=== PATIENT | female | born 1960 | race Caucasian/White ===

== ENCOUNTER → 2017-06-30 | Outpatient (CLI) | payer BC ==
--- NOTE | 2017-07-09 11:38 | MM ---
Reason for exam: screening (asymptomatic). Last mammogram was performed 2 years and 5 months ago. History: Patient is postmenopausal and is nulliparous. Family history of breast cancer in maternal grandmother at age 53 and breast cancer in mother at age 81. Benign excisional biopsy of the left breast, 2016. Physical Findings: A clinical breast exam by your physician is recommended on an annual basis and results should be correlated with mammographic findings. MG 3D Screening Mammo W/Cad Bilateral CC and MLO view(s) were taken. Prior study comparison: February 12, 2015, mammogram, performed at [facility]. September 19, 2014, mammogram, performed at [facility]. February 16, 2012, bilateral digital screening mammo w/CAD. April 15, 2009, bilateral diagnostic digital mammog. There are scattered fibroglandular densities. Finding: There are typically benign round, regional calcifications in the upper outer quadrant of the left breast. There is no discrete abnormality. ASSESSMENT: Benign, BI-RAD 2 RECOMMENDATION: Routine screening mammogram of both breasts in 1 year.
== END | disposition home or self-care (01) ==
LOC: RADMAMWWP 08:58
PROVIDERS: ATTEND Family Medicine
DX: Z12.31 Encounter for screening mammogram for malignant neoplasm of breast (principal)
CPT/HCPCS: 77063; 77067

== ENCOUNTER 2017-07-21 06:49 | Inpatient (IN) | payer BC ==
--- NOTE | 2017-07-21 07:46 | ED ---
General Adult HPI - General Chief complaint: Abdominal Pain Stated complaint: abd pain Time Seen by Provider: 07/21/17 07:00 Source: patient, RN notes reviewed Mode of arrival: wheelchair Limitations: no limitations - History of Present Illness Initial comments: Is a 56-year-old female who presents emergency Department complaining of abdominal pain since last night at 8:30 and she had some diarrhea since then. Patient states she was mildly nauseated but is no longer nauseated. Patient states the pain is in the mid abdomen. Patient states she went to [facility] and they didn't want to do a CAT scan there so they sent her here. Patient denies any fever chills per patient denies chest pain difficulty breathing shortness of breath. Patient denies any back pain. Patient denies any dysuria hematuria urinary frequency. - Related Data Home Medications Medication Instructions Recorded Confirmed ALPRAZolam [Xanax] 0.5 mg PO BID 06/04/15 07/21/17 Citalopram Hydrobromide [CeleXA] 40 mg PO HS 06/04/15 07/21/17 Megestrol [Megace] 40 mg PO BID 06/04/15 07/21/17 Calcium Carbonate/Vitamin D3 1 tab PO DAILY 07/21/17 07/21/17 [Calcium 600-Vit D3 200 Tablet] Doxepin HCl [SINEquan] 50 mg PO HS 07/21/17 07/21/17 Ergocalciferol [Vitamin D2] 50,000 unit PO SA 07/21/17 07/21/17 Furosemide [Lasix] 40 mg PO DAILY 07/21/17 07/21/17 Gabapentin 800 mg PO BID 07/21/17 07/21/17 Meloxicam 15 mg PO DAILY 07/21/17 07/21/17 Montelukast [Singulair] 10 mg PO HS 07/21/17 07/21/17 Phentermine HCl 37.5 mg PO QAM 07/21/17 07/21/17 Potassium Chloride [Klor-Con 20] 20 meq PO DAILY 07/21/17 07/21/17 Ranitidine HCl [Zantac] 150 mg PO HS 07/21/17 07/21/17 Vitmain B-12 6000mcg 6,000 mcg PO DAILY 07/21/17 07/21/17 Allergies Allergy/AdvReac Type Severity Reaction Status Date / Time ibuprofen [From Motrin] Allergy Unknown Nausea & Verified 06/04/15 15:39 Vomiting aspirin AdvReac Unknown Nausea & Verified 06/04/15 15:39 Vomiting NSAIDS (Non-Steroidal AdvReac Unknown Nausea & Verified 06/04/15 15:39 Anti-Inflamma Vomiting Review of Systems ROS Statement: Those systems with pertinent positive or pertinent negative responses have been documented in the HPI. ROS Other: All systems not noted in ROS Statement are negative. Past Medical History Past Medical History: Asthma, GERD/Reflux, Musculoskeletal Disorder Additional Past Medical History / Comment(s): DDD WITH BACK PAIN, PAST HX OF ANEMIA, OVER ACTIVE BLADDER, ? CYST LEFT BREAST. , STATES SHE PROBABLY HAS SLEEP APNEA History of Any Multi-Drug Resistant Organisms: None Reported Past Surgical History: Joint Replacement, Tonsillectomy Additional Past Surgical History / Comment(s): BRONCHOSCOPY, COLONOSCOPY, ECTOPIC , D & C'S, RIGHT TOTAL KNEE (2013). Past Anesthesia/Blood Transfusion Reactions: Motion Sickness, Postoperative Nausea & Vomiting (PONV) Past Psychological History: Anxiety, Depression Smoking Status: Never smoker Past Alcohol Use History: None Reported Past Drug Use History: None Reported - Past Family History Mother Family Medical History: Cancer Additional Family Medical History / Comment(s): MOTHER - BREAST CANCER. GRANDMOTHER - BREAST CANCER General Exam - General Exam Comments Initial Comments: GENERAL: Patient is well-developed and well-nourished. Patient is nontoxic and well- hydrated and is in mild distress. ENT: Neck is soft and supple. No significant lymphadenopathy is noted. Oropharynx is clear. Moist mucous membranes. Neck has full range of motion without eliciting any pain. EYES: The sclera were anicteric and conjunctiva were pink and moist. Extraocular movements were intact and pupils were equal round and reactive to light. Eyelids were unremarkable. PULMONARY: Unlabored respirations. Good breath sounds bilaterally. No audible rales rhonchi or wheezing was noted. CARDIOVASCULAR: There is a regular rate and rhythm without any murmurs gallops or rubs. ABDOMEN: Mild epigastric abdominal pain SKIN: Skin is clear with no lesions or rashes and otherwise unremarkable. NEUROLOGIC: Patient is alert and oriented x3. Cranial nerves II through XII are grossly intact. Motor and sensory are also intact. Normal speech, volume and content. Symmetrical smile. MUSCULOSKELETAL: Normal extremities with adequate strength and full range of motion. LYMPHATICS: No significant lymphadenopathy is noted PSYCHIATRIC: Normal psychiatric evaluation. Normal interpersonal interactions appears functionally intact in deals appropriately with others. No signs of depression. No signs of anxiety. Limitations: no limitations Course Vital Signs 07/21/17 07/21/17 07/21/17 06:55 07:15 09:12 Temperature 98.0 F 97.6 F Pulse Rate 93 94 89 Respiratory 20 16 18 Rate Blood Pressure 126/58 143/80 141/70 O2 Sat by Pulse 92 L 94 L 95 Oximetry Medical Decision Making - Medical Decision Making EKG shows normal sinus rhythm at 89 bpm DE interval is 166 QRS is 94 QT interval 392 QTC is 476. Patient's EKG shows no ST segment elevation or depression or T wave abnormalities are noted. Ultrasound showed mild hydropic gallbladder with suggestion of some internal sludge a positive Morgan sign however there was no obvious of any gallstones. The patient was still having abdominal pain so I admitted the patient to Dr. Cruz and consult a surgeon - Lab Data Result diagrams: 07/21/17 09:35 07/21/17 09:35 Lab Results 07/21/17 07/21/17 Range/Units 09:35 09:35 WBC 10.5 (3.8-10.6) k/uL RBC 4.49 (3.80-5.40) m/uL Hgb 13.6 (11.4-16.0) gm/dL Hct 40.7 (34.0-46.0) % MCV 90.7 (80.0-100.0) fL MCH 30.4 (25.0-35.0) pg MCHC 33.5 (31.0-37.0) g/dL RDW 13.1 (11.5-15.5) % Plt Count 334 (150-450) k/uL Neutrophils % 87 % Lymphocytes % 6 % Monocytes % 4 % Eosinophils % 1 % Basophils % 0 % Neutrophils # 9.2 H (1.3-7.7) k/uL Lymphocytes # 0.7 L (1.0-4.8) k/uL Monocytes # 0.4 (0-1.0) k/uL Eosinophils # 0.2 (0-0.7) k/uL Basophils # 0.0 (0-0.2) k/uL Sodium 143 (137-145) mmol/L Potassium 4.4 (3.5-5.1) mmol/L Chloride 100 (98-107) mmol/L Carbon Dioxide 29 (22-30) mmol/L Anion Gap 14 mmol/L BUN 25 H (7-17) mg/dL Creatinine 0.96 (0.52-1.04) mg/dL Est GFR (CKD-EPI)AfAm 76 (>60 ml/min/1.73 sqM) Est GFR (CKD-EPI)NonAf 66 (>60 ml/min/1.73 sqM) Glucose 122 H (74-99) mg/dL Calcium 9.0 (8.4-10.2) mg/dL Total Bilirubin 2.3 H (0.2-1.3) mg/dL AST 17 (14-36) U/L ALT 25 (9-52) U/L Alkaline Phosphatase 75 (38-126) U/L Total Protein 7.0 (6.3-8.2) g/dL Albumin 4.1 (3.5-5.0) g/dL Amylase 43 (30-110) U/L Lipase 68 (23-300) U/L Disposition Clinical Impression: Biliary colic Disposition: ADMITTED IP TO THIS HOSP Referrals: Rohith Pena MD [Primary Care Provider] - 1-2 days Time of Disposition: 10:23
--- NOTE | 2017-07-21 08:19 | US ---
EXAMINATION TYPE: US gallbladder DATE OF EXAM: 07/21/2017 COMPARISON: NONE CLINICAL HISTORY: 56-year-old female RUQ Pain, nausea. TECHNIQUE: Multiple sonographic images of the right upper quadrant are obtained. FINDINGS: CLOUD SYSTEMS ARCHITECT NOTES: Extremely difficult exam due to patient body habitus- 5ft 2in 390lbs EXAM MEASUREMENTS: Liver Length: 16.8 cm Gallbladder Wall: 0.2 cm CBD: 0.6 cm Right Kidney: 11.0 x 4.9 x 5.5 cm Pancreas: Obscured by bowel gas Liver: Limited visualization. Increased attenuation, decreased visualization of vessels suggestive o f fatty infiltrate Gallbladder: Possible sludge visualized. Mildly hydropic measuring 10.1 x 4.3 cm. No gallbladder wal l thickening or pericholecystic fluid. Evidence for sonographic Morgan's sign: Yes CBD: The small portion visualized measures at the upper limits of normal in caliber. Right Kidney: No evident hydronephrosis. Limited detailed assessment. IMPRESSION: 1. Technically limited exam due to patient's very large body habitus. 2. Hepatic steatosis. 3. Mildly hydropic gallbladder with suggestion of some internal sludge. While no shadowing calculi or erasmo wall thickening is seen, sonographic Morgan sign is reported positive. Consider HIDA scan to f urther evaluate if concern for early acute cholecystitis. 4. The small portion of the visualized bile duct measures at the upper limits of normal in caliber.
[2017-07-21 09:48] LABS: Basophils % (A) 0 %; Eosinophils # (A) 0.2 k/uL (0-0.7); Eosinophils % (A) 1 %; HCT 40.7 % (34.0-46.0); HGB 13.6 gm/dL (11.4-16.0); Lymphocytes # (A) 0.7 k/uL (1.0-4.8); Lymphocytes % (A) 6 %; MCH 30.4 pg (25.0-35.0); MCHC 33.5 g/dL (31.0-37.0); MCV 90.7 fL (80.0-100.0); Mean Platelet Volume 7.9; Monocytes # (A) 0.4 k/uL (0-1.0); Monocytes % (A) 4 %; Neutrophils # (A) 9.2 k/uL (1.3-7.7); Neutrophils % (A) 87 %; Platelet Count 334 k/uL (150-450); RBC 4.49 m/uL (3.80-5.40); RDW 13.1 % (11.5-15.5); WBC 10.5 k/uL (3.8-10.6)
[2017-07-21 10:06] LABS: Albumin 4.1 g/dL (3.5-5.0); Potassium 4.4 mmol/L (3.5-5.1); Total Bilirubin 2.3 mg/dL (0.2-1.3)
[2017-07-21] MEDS ORDERED: SODIUM CHLORIDE 0.9% 1,000 ML IV ONE ×2 (10:20→10:23)
[2017-07-21] MEDS ORDERED: ONDANSETRON 4 MG/2 ML VIAL IVP STA (10:23)
[2017-07-21 11:31] LABS: Appearance,Urine Cloudy (Clear); Bilirubin,Urine Negative (Negative); Blood,Urine Negative (Negative); Color,Urine Yellow; Glucose,Urine (UA) Negative (Negative); Ketones,Urine Negative (Negative); Leukocyte Esterase,Urine Trace (Negative); Nitrite,Urine Negative (Negative); PH, Urine 6.5 (5.0-8.0); Protein,Urine Trace (Negative); Specific Gravity,Urine 1.024 (1.001-1.035); Squamous Epithelial Cell,Urine 2 /hpf (0-4); WBC,Urine 5 /hpf (0-5)
[2017-07-21] MEDS: ALPRAZolam 0.5 MG TAB PO SCH ×2 (13:30→20:13)
[2017-07-21] MEDS: HEPARIN SODIUM,PORCINE 5,000 UNIT/ML 1 ML VIAL SQ SCH ×2 (15:07→23:37)
--- NOTE | 2017-07-21 15:24 | P.HPIM ---
History of Present Illness This is a pleasant 6 years old lady with past medical history of asthma/COPD, GERD, OA, chronic back pain, endometriosis, ADEBAYO on CPAP, bilateral carpal tunnel syndrome who presents with abdominal pain associated with diarrhea of one day duration , the pain is in the right upper side , radiating to the sides , , non specific in nature, /, associated with nausea and diarrhea she had it before but not like this , nos sick contacts Review of Systems 14 point system review were negative except was mentioned in HPI Past Medical History Past Medical History: Asthma, COPD, GERD/Reflux, Osteoarthritis (OA) Additional Past Medical History / Comment(s): Chronic bronchitis, DDD, mid- lower back pain, DJD, arthritis L knee, endometriosis, endometrial pre-cancer, L breast mass-benign, UTIs, ADEBAYO uses Cpap, anemia, bilateral carpal tunnel syndrome. History of Any Multi-Drug Resistant Organisms: None Reported Past Surgical History: Breast Surgery, Joint Replacement, Tonsillectomy Additional Past Surgical History / Comment(s): BRONCHOSCOPY, COLONOSCOPY, EXPLORATORY LAP FOR ECTOPIC -RUPTURED FALLOPIAN TUBE WITH REMOVAL, D & C'S, RIGHT TOTAL KNEE (2013), L BREAST BX-BENIGN. Past Anesthesia/Blood Transfusion Reactions: Motion Sickness, Postoperative Nausea & Vomiting (PONV) Smoking Status: Never smoker - Past Family History Mother Family Medical History: Cancer Additional Family Medical History / Comment(s): MOTHER - FROM BREAST CANCER AT THE AGE OF 83 YRS. GRANDMOTHER - BREAST CANCER Father Family Medical History: Congestive Heart Failure (CHF), Diabetes Mellitus Additional Family Medical History / Comment(s): FATHER FROM CHF AT THE AGE OF 78YRS. Medications and Allergies Home Medications Medication Instructions Recorded Confirmed Type ALPRAZolam [Xanax] 0.5 mg PO BID 06/04/15 07/21/17 History Citalopram Hydrobromide [CeleXA] 40 mg PO HS 06/04/15 07/21/17 History Megestrol [Megace] 40 mg PO BID 06/04/15 07/21/17 History Calcium Carbonate/Vitamin D3 1 tab PO DAILY 07/21/17 07/21/17 History [Calcium 600-Vit D3 200 Tablet] Doxepin HCl [SINEquan] 50 mg PO HS 07/21/17 07/21/17 History Ergocalciferol [Vitamin D2] 50,000 unit PO SA 07/21/17 07/21/17 History Furosemide [Lasix] 40 mg PO DAILY 07/21/17 07/21/17 History Gabapentin 800 mg PO BID 07/21/17 07/21/17 History Meloxicam 15 mg PO DAILY 07/21/17 07/21/17 History Montelukast [Singulair] 10 mg PO HS 07/21/17 07/21/17 History Phentermine HCl 37.5 mg PO QAM 07/21/17 07/21/17 History Potassium Chloride [Klor-Con 20] 20 meq PO DAILY 07/21/17 07/21/17 History Ranitidine HCl [Zantac] 150 mg PO HS 07/21/17 07/21/17 History Vitmain B-12 6000mcg 6,000 mcg PO DAILY 07/21/17 07/21/17 History Allergies Allergy/AdvReac Type Severity Reaction Status Date / Time ibuprofen [From Motrin] Allergy Unknown Nausea & Verified 06/04/15 15:39 Vomiting aspirin AdvReac Unknown Nausea & Verified 06/04/15 15:39 Vomiting NSAIDS (Non-Steroidal AdvReac Unknown Nausea & Verified 06/04/15 15:39 Anti-Inflamma Vomiting Physical Exam Vitals: Vital Signs Temp Pulse Pulse Resp BP BP Pulse Ox 07/21/17 14:37 98.4 F 91 18 127/56 90 L 07/21/17 11:37 97.3 F L 93 16 126/75 91 L 07/21/17 11:20 98.3 F 99 16 146/60 100 07/21/17 09:12 89 18 141/70 95 07/21/17 07:15 97.6 F 94 16 143/80 94 L 07/21/17 06:55 98.0 F 93 20 126/58 92 L Intake and Output 07/21/17 07/21/17 07/21/17 06:59 14:59 22:59 Other: Voiding Method Toilet # Voids 0 Weight 176.901 kg Constitutional: No acute distress, conversant, pleasant Eyes: Anicteric sclerae, moist conjunctiva, no lid-lag PERRLA ENMT: NC/AT Oropharynx clear, no erythema, exudates Neck: Supple, FROM, no masses, or JVD No carotid bruits No thyromegaly Lungs: Clear to auscultation Clear to percussion Normal respiratory effort, no accessory muscle use Cardiovascular: Heart regular in rate and rhythm, No murmurs, gallops, or rubs No peripheral edema Abdominal: Soft Nontender, no guarding, rebound or rigidity Abdomen moving with respiration Normoactive bowel sounds No hepatomegaly, No splenomegaly No palpable mass No abdominal wall hernia noted Skin: Normal temperature, tone, texture, turgor No induration No subcutaneous nodules No rash, lesions No ulcers Extremities: No digital cyanosis No clubbing Pedal pulses intact and symmetrical Radial pulses intact and symmetrical Normal gait and station No calf tenderness Psychiatric: Alert and oriented to person, place and time Appropriate affect Intact judgement Neuro: Muscles Strength 5/5 in all 4 extremities Sensation to light touch grossly present throughout Cranial nerves II-XII grossly intact No focal sensory deficits Results CBC & Chem 7: 07/21/17 09:35 07/21/17 09:35 Labs: Abnormal Lab Results - Last 24 Hours (Table) 07/21/17 07/21/17 07/21/17 Range/Units 09:35 09:35 11:16 Neutrophils # 9.2 H (1.3-7.7) k/uL Lymphocytes # 0.7 L (1.0-4.8) k/uL BUN 25 H (7-17) mg/dL Glucose 122 H (74-99) mg/dL Total Bilirubin 2.3 H (0.2-1.3) mg/dL Urine Appearance Cloudy H (Clear) Urine Protein Trace H (Negative) Ur Leukocyte Esterase Trace H (Negative) Thrombosis Risk Factor Assmnt - Choose All That Apply Any of the Below Risk Factors Present?: Yes Each Factor Represents 1 point: Abnormal pulmonary function (COPD), Age 41-60 years, Obesity (BMI >25) Other Risk Factors: No Other congenital or acquired thrombophilia - If yes, enter type in comment: No Thrombosis Risk Factor Assessment Total Risk Factor Score: 3 Thrombosis Risk Factor Assessment Level: Moderate Risk Assessment and Plan Assessment: Abdominal pain GERD History of asthma/COPD Plan: Admit patient to inpatient continue with IV fluids nothing by mouth the patient underwent ultrasound of the liver because her bilirubin was 2.3 which was inconclusive and the suggested he does scan which was ordered lipase WNL, US negative , surgical consultations , pain management , fluid and check HIDA scan
[2017-07-21] MEDS: ONDANSETRON 4 MG/2 ML VIAL IVP PRN (18:06)
[2017-07-21] MEDS: CITALOPRAM HYDROBROMIDE 20 MG TAB PO SCH (20:13)
[2017-07-21] MEDS: DOXEPIN 25 MG CAP PO SCH (20:14)
[2017-07-21] MEDS: GABAPENTIN 400 MG CAP PO SCH (20:14)
[2017-07-21] MEDS: MEGESTROL 40 MG TAB PO SCH (20:14)
[2017-07-21] MEDS: MONTELUKAST 10 MG TAB PO SCH (20:14)
[2017-07-21] MEDS: PANTOPRAZOLE 40 MG/10 ML VIAL IVP SCH (20:19)
--- NOTE | 2017-07-21 20:45 | NM ---
EXAMINATION TYPE: NM hepatobiliary w CCK DATE OF EXAM: 07/21/2017 COMPARISON: NONE HISTORY: Right upper quadrant pain. TECHNIQUE: After the intravenous administration of 5.2 mCi Tc 99m Mebrofenin hepatobiliary scintigrap hy is performed. Immediate images post injection. FINDINGS: There is satisfactory initial accumulation of tracer by the liver. The gallbladder is visualized wit hin 30 minutes. The small bowel activity is noted within 8 minutes. At one hour intravenous CCK was administered; the patient was injected with 3.55 mcg of Kinevac, and gallbladder ejection fraction is calculated at 0 %. The patient experienced bloating, nausea, and urg ency to defecate following the intravenous CCK administration. Therefore there is no scintigraphic evidence of cystic or common bile duct obstruction to suggest acu te cholecystitis or gallbladder dyskinesia. IMPRESSION: Examination is negative for acute cholecystitis/cystic duct obstruction, but the examinat ion is positive for gallbladder dyskinesia with 0% gallbladder ejection fraction following intravenou s CCK delivery.
[2017-07-21] MEDS ORDERED: FAMOTIDINE 20 MG TAB PO SCH (21:00)
[2017-07-22] MEDS: ALPRAZolam 0.5 MG TAB PO SCH ×2 (07:54→20:42)
[2017-07-22] MEDS: HEPARIN SODIUM,PORCINE 5,000 UNIT/ML 1 ML VIAL SQ SCH ×2 (07:54→17:25)
[2017-07-22] MEDS: GABAPENTIN 400 MG CAP PO SCH ×2 (07:55→20:43)
[2017-07-22] MEDS: CYANOCOBALAMIN 500 MCG TAB PO SCH (07:55)
[2017-07-22] MEDS: POTASSIUM CHLORIDE ER 20 MEQ TAB.ER PO SCH (07:56)
[2017-07-22] MEDS: MEGESTROL 40 MG TAB PO SCH ×2 (07:56→20:43)
[2017-07-22] MEDS: MELOXICAM 7.5 MG TAB PO SCH (07:56)
[2017-07-22] MEDS: PANTOPRAZOLE 40 MG/10 ML VIAL IVP SCH ×2 (07:57→20:25)
[2017-07-22] MEDS: CALCIUM CARB-VIT D 500MG-200UN 1 EACH TAB PO SCH (07:57)
[2017-07-22 09:58] LABS: Basophils % (A) 0 %; Eosinophils # (A) 0.2 k/uL (0-0.7); Eosinophils % (A) 3 %; HCT 38.4 % (34.0-46.0); HGB 12.7 gm/dL (11.4-16.0); Lymphocytes # (A) 1.4 k/uL (1.0-4.8); Lymphocytes % (A) 19 %; MCH 30.5 pg (25.0-35.0); MCHC 32.9 g/dL (31.0-37.0); MCV 92.7 fL (80.0-100.0); Mean Platelet Volume 7.7; Monocytes # (A) 0.4 k/uL (0-1.0); Monocytes % (A) 6 %; Neutrophils # (A) 5.2 k/uL (1.3-7.7); Neutrophils % (A) 70 %; Platelet Count 293 k/uL (150-450); RBC 4.15 m/uL (3.80-5.40); WBC 7.4 k/uL (3.8-10.6)
[2017-07-22] MEDS ORDERED: fentaNYL (PF) 50 MCG/ML 2 ML AMP IV PRN (10:22)
[2017-07-22] MEDS ORDERED: LIDOCAINE 1% 20 ML VIAL (10MG/ML) FOR IV START INTRADERMA PRN (10:22)
[2017-07-22] MEDS ORDERED: ONDANSETRON ODT 4 MG TAB PO ONE (10:22)
[2017-07-22] MEDS ORDERED: MIDAZOLAM 2 MG/2 ML VIAL IV PRN (10:22)
[2017-07-22] MEDS ORDERED: DEXAMETHASONE SOD PHOSPHATE 10 MG/ML 1 ML VIAL IV ONE (10:22)
[2017-07-22] MEDS ORDERED: SCOPOLAMINE 1.5MG/72HR PATCH TRANSDERM ONE (10:22)
[2017-07-22 10:46] LABS: Albumin 3.8 g/dL (3.5-5.0); Bilirubin, Delta 0.5 mg/dL (0.0-0.2); Bilirubin,Unconjugated 1.8 mg/dL (0.0-1.1); Calcium 8.8 mg/dL (8.4-10.2); Potassium 4.1 mmol/L (3.5-5.1); Total Bilirubin 2.3 mg/dL (0.2-1.3); Total Protein 6.8 g/dL (6.3-8.2)
[2017-07-22] MEDS: LACTATED RINGERS 1,000 ML IV SCH ×3 (11:14→13:55)
--- NOTE | 2017-07-22 11:26 | P.GSCN ---
History of Present Illness Consult date: 07/22/17 History of present illness: 56-year-old female presented to the emergency department with complaints of right upper quadrant abdominal pain. She states that she has had episodes like this previously but not to this intensity. She states that she had a hamburger with [employer] and developed pain a few hours later. She complained of some nausea but denied any emesis episodes. She denied any change in bowel function. She states she occasionally has had right upper quadrant abdominal pain in the past. She has never had workup for her gallbladder. She denies being on any anticoagulation. She has no additional complaints at this time. She denies any fevers, chills, chest pain or shortness of breath. Review of Systems All systems: negative Past Medical History Past Medical History: Asthma, COPD, GERD/Reflux, Osteoarthritis (OA) Additional Past Medical History / Comment(s): Chronic bronchitis, DDD, mid- lower back pain, DJD, arthritis L knee, endometriosis, endometrial pre-cancer, L breast mass-benign, UTIs, ADEBAYO uses Cpap, anemia, bilateral carpal tunnel syndrome. History of Any Multi-Drug Resistant Organisms: None Reported Past Surgical History: Breast Surgery, Joint Replacement, Tonsillectomy Additional Past Surgical History / Comment(s): BRONCHOSCOPY, COLONOSCOPY, EXPLORATORY LAP FOR ECTOPIC -RUPTURED FALLOPIAN TUBE WITH REMOVAL, D & C'S, RIGHT TOTAL KNEE (2013), L BREAST BX-BENIGN. Past Anesthesia/Blood Transfusion Reactions: Motion Sickness, Postoperative Nausea & Vomiting (PONV) Smoking Status: Never smoker - Past Family History Mother Family Medical History: Cancer Additional Family Medical History / Comment(s): MOTHER - FROM BREAST CANCER AT THE AGE OF 83 YRS. GRANDMOTHER - BREAST CANCER Father Family Medical History: Congestive Heart Failure (CHF), Diabetes Mellitus Additional Family Medical History / Comment(s): FATHER FROM CHF AT THE AGE OF 78YRS. Medications and Allergies Home Medications Medication Instructions Recorded Confirmed Type ALPRAZolam [Xanax] 0.5 mg PO BID 06/04/15 07/21/17 History Citalopram Hydrobromide [CeleXA] 40 mg PO HS 06/04/15 07/21/17 History Megestrol [Megace] 40 mg PO BID 06/04/15 07/21/17 History Calcium Carbonate/Vitamin D3 1 tab PO DAILY 07/21/17 07/21/17 History [Calcium 600-Vit D3 200 Tablet] Doxepin HCl [SINEquan] 50 mg PO HS 07/21/17 07/21/17 History Ergocalciferol [Vitamin D2] 50,000 unit PO SA 07/21/17 07/21/17 History Furosemide [Lasix] 40 mg PO DAILY 07/21/17 07/21/17 History Gabapentin 800 mg PO BID 07/21/17 07/21/17 History Meloxicam 15 mg PO DAILY 07/21/17 07/21/17 History Montelukast [Singulair] 10 mg PO HS 07/21/17 07/21/17 History Phentermine HCl 37.5 mg PO QAM 07/21/17 07/21/17 History Potassium Chloride [Klor-Con 20] 20 meq PO DAILY 07/21/17 07/21/17 History Ranitidine HCl [Zantac] 150 mg PO HS 07/21/17 07/21/17 History Vitmain B-12 6000mcg 6,000 mcg PO DAILY 07/21/17 07/21/17 History Allergies Allergy/AdvReac Type Severity Reaction Status Date / Time ibuprofen [From Motrin] Allergy Unknown Nausea & Verified 06/04/15 15:39 Vomiting aspirin AdvReac Unknown Nausea & Verified 06/04/15 15:39 Vomiting NSAIDS (Non-Steroidal AdvReac Unknown Nausea & Verified 06/04/15 15:39 Anti-Inflamma Vomiting Surgical - Exam Osteopathic Statement: *. No significant issues noted on an osteopathic structural exam other than those noted in the History and Physical/Consult. Vital Signs Temp Pulse Resp BP Pulse Ox 98.0 F 93 20 126/58 92 L 07/21/17 06:55 07/21/17 06:55 07/21/17 06:55 07/21/17 06:55 07/21/17 06:55 - General well nourished, no distress - Eyes normal ocular movement - ENT normal mucosa, no hearing loss - Neck no masses, trachea midline - Respiratory No difficulty with respiration - Abdomen Soft, mild tenderness in the right upper quadrant, nondistended, no rebound, no guarding, morbidly obese - Integumentary no rash, no growths - Neurologic normal sensation - Psychiatric oriented to time, oriented to person, oriented to place, speech is normal Results - Labs 07/22/17 09:27 07/22/17 09:27 Abnormal Lab Results - Last 24 Hours (Table) 07/21/17 07/22/17 Range/Units 11:16 09:27 Glucose 102 H (74-99) mg/dL Total Bilirubin 2.3 H (0.2-1.3) mg/dL Unconjugated Bilirubin 1.8 H (0.0-1.1) mg/dL Delta Bilirubin 0.5 H (0.0-0.2) mg/dL Urine Appearance Cloudy H (Clear) Urine Protein Trace H (Negative) Ur Leukocyte Esterase Trace H (Negative) Diabetes panel 07/22/17 Range/Units 09:27 Sodium 142 (137-145) mmol/L Potassium 4.1 (3.5-5.1) mmol/L Chloride 104 (98-107) mmol/L Carbon Dioxide 24 (22-30) mmol/L BUN 16 (7-17) mg/dL Creatinine 0.92 (0.52-1.04) mg/dL Glucose 102 H (74-99) mg/dL Calcium 8.8 (8.4-10.2) mg/dL AST 19 (14-36) U/L ALT 15 (9-52) U/L Alkaline Phosphatase 71 (38-126) U/L Total Protein 6.8 (6.3-8.2) g/dL Albumin 3.8 (3.5-5.0) g/dL Calcium panel 07/22/17 Range/Units 09:27 Calcium 8.8 (8.4-10.2) mg/dL Albumin 3.8 (3.5-5.0) g/dL Pituitary panel 07/22/17 Range/Units 09:27 Sodium 142 (137-145) mmol/L Potassium 4.1 (3.5-5.1) mmol/L Chloride 104 (98-107) mmol/L Carbon Dioxide 24 (22-30) mmol/L BUN 16 (7-17) mg/dL Creatinine 0.92 (0.52-1.04) mg/dL Glucose 102 H (74-99) mg/dL Calcium 8.8 (8.4-10.2) mg/dL Adrenal panel 07/22/17 Range/Units 09:27 Sodium 142 (137-145) mmol/L Potassium 4.1 (3.5-5.1) mmol/L Chloride 104 (98-107) mmol/L Carbon Dioxide 24 (22-30) mmol/L BUN 16 (7-17) mg/dL Creatinine 0.92 (0.52-1.04) mg/dL Glucose 102 H (74-99) mg/dL Calcium 8.8 (8.4-10.2) mg/dL Total Bilirubin 2.3 H (0.2-1.3) mg/dL AST 19 (14-36) U/L ALT 15 (9-52) U/L Alkaline Phosphatase 71 (38-126) U/L Total Protein 6.8 (6.3-8.2) g/dL Albumin 3.8 (3.5-5.0) g/dL - Imaging US - abdomen: report reviewed, image reviewed (No evidence of gallstones, there may be some gallbladder sludge noted) Additional studies: HIDA scan was performed, no evidence of cholecystitis however there is an ejection fraction of 0% indicates biliary dyskinesia Assessment and Plan (1) Biliary colic Narrative/Plan: 56-year-old female with biliary colic secondary to biliary dyskinesia - The patient does have a elevated total bilirubin, however direct bilirubin is normal indicating no biliary obstruction - With the patient's continued pain, she is requesting surgical intervention while she is in the hospital, we'll plan for laparoscopic cholecystectomy - I discussed the risks, benefits and alternatives with the patient. She is agreeable to this plan. - Keep the patient nothing by mouth - Further recommendations after surgery Current Visit: Yes Status: Acute Code(s): K80.50 - CALCULUS OF BILE DUCT W/ O CHOLANGITIS OR CHOLECYST W/O OBST SNOMED Code(s): 02257933
[2017-07-22] MEDS: ONDANSETRON 4 MG/2 ML VIAL IVP PRN (12:42)
[2017-07-22] MEDS ORDERED: ceFAZolin IN SWFI 2 GM/20 ML SYRINGE IVP ONE (13:30)
[2017-07-22] MEDS ORDERED: fentaNYL (PF) 50 MCG/ML 2 ML AMP ONE (13:55)
[2017-07-22] MEDS ORDERED: PHENYLEPHRINE-0.9% NACL SYG 1 MG/10 ML SYRINGE ONE (13:55)
[2017-07-22] MEDS ORDERED: GLYCOPYRROLATE 0.2 MG/ML 2 ML VIAL ONE (13:55)
[2017-07-22] MEDS ORDERED: DEXAMETHASONE SOD PHOS (MDV) 100 MG/10 ML VIAL ONE (13:55)
[2017-07-22] MEDS ORDERED: MIDAZOLAM 2 MG/2 ML VIAL ONE (13:55)
[2017-07-22] MEDS ORDERED: ROCURONIUM BROMIDE 10 MG/ML 10 ML VIAL IV ONE (13:55)
[2017-07-22] MEDS ORDERED: LIDOCAINE 1% INJ 10MG/ML (20 ML MDV) ONE (13:55)
[2017-07-22] MEDS ORDERED: SUCCINYLCHOLINE CHLORIDE 100 MG/5 ML SYR IV ONE (13:55)
[2017-07-22] MEDS ORDERED: BUPIVACAINE (PF) 0.25% 30 ML VIAL SQ ONE (13:55)
[2017-07-22] MEDS ORDERED: KETAMINE 10 MG/ML 20 ML VIAL ONE (13:55)
[2017-07-22] MEDS ORDERED: PROPOFOL 10 MG/ML 20 ML VIAL IV ONE (13:55)
[2017-07-22] MEDS ORDERED: PROPOFOL 100 ML IV ONE (16:22)
[2017-07-22] MEDS ORDERED: NALOXONE 0.4 MG/ML 1 ML VIAL IV PRN (16:23)
--- NOTE | 2017-07-22 16:24 | P.OP ---
Date of Procedure: 07/22/17 Preoperative Diagnosis: Biliary colic, biliary dyskinesia Postoperative Diagnosis: Biliary colic, biliary dyskinesia Procedure(s) Performed: Laparoscopic cholecystectomy Anesthesia: ARCHIE Surgeon: Blaire Telles Pathology: other (Gallbladder and contents) Condition: stable Disposition: ICU Indications for Procedure: 56-year-old female presented to the emergency department complaining of severe right upper quadrant pain. On workup she was found to have biliary dyskinesia on HIDA scan. She continued to complain of right upper quadrant pain and requested that surgery be performed. The patient was explained the laparoscopic cholecystectomy. The patient was excellent the risks, benefits and alternatives to the procedure. She did provide consent prior to attending the operating suite. Operative Findings: Gallbladder with multiple surrounding adhesions, adhesions to the colon and fatty infiltration Description of Procedure: The patient was brought into the operating suite and placed in supine position on the operating table sedation was provided by anesthesia and the patient was noted to have a very difficult airway. Approximately 1 hour was taken to attempt intubation. Once intubated, the patient was prepped and draped in regular sterile fashion. A 5 mm incision was made in the left upper quadrant and palmers point and the abdomen was entered under direct visualization. Pneumoperitoneum was then achieved. A 12 mm incision was made in the midline in the supraumbilical location and a 12 mm port was placed. 2 additional 5 mm ports were placed in the right upper quadrant. The gallbladder was grasped and retracted and was noted to have adhesions to surrounding structures including the colon. These were bluntly dissected. The gallbladder was then appropriately retracted. Dissection was carried along the infundibulum towards the cystic duct. The cystic duct was clearly visualized and skeletonized. 2 clips were placed proximally one was placed distally and the cystic duct was ligated. The cystic artery was then clearly visualized. 2 clips were placed proximally one was placed distally after skeletonization. The cystic artery was then ligated. At this point electrocautery was used to dissect the gallbladder off of the bladder fossa on the liver bed. Hemostasis was noted to be maintained. The gallbladder once completely removed was placed in an Endo Catch bag and removed from the abdomen from the super umbilical incision site. Irrigation was then used in the right upper quadrant and hemostasis was noted to be maintained with electrocautery. At this point the super umbilical incision site was closed using a [id number] 0 Vicryl suture using a Mk- Zayra device. Pneumoperitoneum was then relieved. All ports were removed from the abdomen. All skin incisions were closed with skin álvaro. The patient was then awakened in the operating suite and taken to postanesthesia care unit in stable condition. Due to the difficult intubation, the patient will remain intubated and treated for any edematous changes and extubation will occur per ICU.
[2017-07-22 16:42] LABS: Glucose,Whole Blood 122 mg/dL (75-99)
[2017-07-22] MEDS: DEXAMETHASONE SOD PHOSPHATE 10 MG/ML 1 ML VIAL IV SCH (17:26)
--- NOTE | 2017-07-22 18:19 | XR ---
EXAMINATION TYPE: XR chest 1V portable DATE OF EXAM: 07/22/2017 COMPARISON: NONE HISTORY: Ventilatory dependent respiratory failure TECHNIQUE: Single frontal view of the chest is obtained. FINDINGS: Enteric tube is placed approximately 4.1 cm from the moiz near the top of the aortic arc h, overall appropriately placed. Enteric tube is seen with its fenestrated portion below the gastroes ophageal junction. There is cardiomegaly and obscuration of the left costophrenic angle with retrocar diac airspace disease. Remainder the lungs are clear. Osseous structures are intact. IMPRESSION: Appropriately placed enteric and endotracheal tubes. Left-sided retrocardiac airspace di sease that may represent a layering pleural effusion and atelectasis or pneumonia in the proper clini carla setting.
[2017-07-22] MEDS: CHLORHEXIDINE GLUCONATE 15 ML CUP MUCOUS MEM SCH (20:25)
[2017-07-22] MEDS: CITALOPRAM HYDROBROMIDE 20 MG TAB PO SCH (20:42)
[2017-07-22] MEDS: DOXEPIN 25 MG CAP PO SCH (20:42)
[2017-07-22] MEDS: MONTELUKAST 10 MG TAB PO SCH (20:43)
[2017-07-23] MEDS: PROPOFOL 1,000 MG in EMPTY BAG 1 BAG IV SCH ×4 (00:09→06:18)
[2017-07-23] MEDS: DEXAMETHASONE SOD PHOSPHATE 10 MG/ML 1 ML VIAL IV SCH ×3 (00:10→11:32)
[2017-07-23] MEDS: HEPARIN SODIUM,PORCINE 5,000 UNIT/ML 1 ML VIAL SQ SCH ×3 (00:11→15:06)
[2017-07-23 00:22] LABS: Glucose,Whole Blood 150 mg/dL (75-99)
[2017-07-23 04:26] LABS: ABG Base Excess -1.7 mmol/L; ABG HCO3 23 mmol/L (21-25); ABG Oxygen Saturation 94.9 % (94-97); ABG PCO2 37 mmHg (35-45); ABG PO2 71 mmHg (83-108); ABG TCO2 24 mmol/L (19-24)
[2017-07-23] MEDS: LACTATED RINGERS 1,000 ML IV SCH ×3 (04:43→15:07)
[2017-07-23 05:00] LABS: Basophils % (A) 0 %; Eosinophils % (A) 0 %; HCT 36.1 % (34.0-46.0); HGB 11.8 gm/dL (11.4-16.0); Lymphocytes # (A) 0.8 k/uL (1.0-4.8); Lymphocytes % (A) 9 %; MCH 30.5 pg (25.0-35.0); MCHC 32.6 g/dL (31.0-37.0); MCV 93.6 fL (80.0-100.0); Mean Platelet Volume 8.2; Monocytes # (A) 0.1 k/uL (0-1.0); Monocytes % (A) 2 %; Neutrophils # (A) 8.1 k/uL (1.3-7.7); Neutrophils % (A) 89 %; Platelet Count 269 k/uL (150-450); RBC 3.85 m/uL (3.80-5.40); WBC 9.1 k/uL (3.8-10.6)
[2017-07-23 05:13] LABS: ALT 34 U/L (9-52); AST 37 U/L (14-36); Albumin 3.5 g/dL (3.5-5.0); Alkaline Phosphatase 63 U/L (38-126); Anion Gap 15 mmol/L; Bilirubin, Delta 0.5 mg/dL (0.0-0.2); Bilirubin,Unconjugated 0.6 mg/dL (0.0-1.1); Blood Urea Nitrogen 13 mg/dL (7-17); Calcium 8.7 mg/dL (8.4-10.2); Carbon Dioxide 19 mmol/L (22-30); Chloride 106 mmol/L (98-107); Glucose 153 mg/dL (74-99); Magnesium 2.1 mg/dL (1.6-2.3); Phosphorus 3.8 mg/dL (2.5-4.5); Potassium 4.3 mmol/L (3.5-5.1); Sodium 140 mmol/L (137-145); Total Bilirubin 1.1 mg/dL (0.2-1.3); Total Protein 6.2 g/dL (6.3-8.2)
[2017-07-23 06:25] LABS: Glucose,Whole Blood 145 mg/dL (75-99)
--- NOTE | 2017-07-23 07:16 | XR ---
EXAMINATION TYPE: XR chest 1V portable DATE OF EXAM: 07/23/2017 COMPARISON: 07/22/2017 HISTORY: SOB, Follow Up FINDINGS: Indwelling tubes and catheters are unchanged. No change in bibasilar opacities. Stable appearance of the cardio-mediastinal structures at this time. Pleural effusion unchanged. IMPRESSION: 1. Stable portable chest. Clinical correlation and follow up until resolution is recommended.
[2017-07-23] MEDS ORDERED: LORazepam 2 MG/ML INJ IV STA (07:28)
[2017-07-23] MEDS: PANTOPRAZOLE 40 MG/10 ML VIAL IVP SCH ×2 (08:13→20:11)
[2017-07-23] MEDS: CHLORHEXIDINE GLUCONATE 15 ML CUP MUCOUS MEM SCH (08:13)
--- NOTE | 2017-07-23 08:15 | P.CNPUL ---
History of Present Illness Consult date: 07/23/17 Chief complaint: Status post cholecystectomy, respiratory failure, airway obstruction History of present illness: Pulmonary consult dated 07/23/2017 56-year-old female with a past medical history of asthma/COPD, GERD, osteoarthritis, chronic back pain, endometriosis, sleep apnea syndrome, on CPAP , and bilateral carpal tunnel syndrome. The patient presented to the emergency room on July 21 with abdominal pain. Right upper quadrant. She also has some nausea. Chest some diarrhea as well. The pain was 10 out of 10. She went for a cholecystectomy. There is no problems with the surgery but she was very difficult intubation. Anesthesia about an hour to intubate this patient. There were very concerned about airway obstruction and trauma to the upper airway. She came back here after surgery to be placed on the ventilator overnight. I placed her on Decadron 6 mg IV push every 6 hours. The patient will be attempted to be weaned today. We'll put the patient on PSV and CPAP. We'll stop her propofol. We'll make sure that we do a cuff leak as well as weaning parameters. Hopefully we can get her extubated. She is quite a large lady. Review of Systems A 12 point review of system is difficult to obtain obviously because she is intubated. She did come over the right quadrant abdominal pain was described as a 10 out of 10 as well as nausea and diarrhea. ROS unobtainable: due to endotracheal tube Past Medical History Past Medical History: Asthma, COPD, GERD/Reflux, Osteoarthritis (OA) Additional Past Medical History / Comment(s): Chronic bronchitis, DDD, mid- lower back pain, DJD, arthritis L knee, endometriosis, endometrial pre-cancer, L breast mass-benign, UTIs, ADEBAYO uses Cpap, anemia, bilateral carpal tunnel syndrome. History of Any Multi-Drug Resistant Organisms: None Reported Past Surgical History: Breast Surgery, Joint Replacement, Tonsillectomy Additional Past Surgical History / Comment(s): BRONCHOSCOPY, COLONOSCOPY, EXPLORATORY LAP FOR ECTOPIC -RUPTURED FALLOPIAN TUBE WITH REMOVAL, D & C'S, RIGHT TOTAL KNEE (2013), L BREAST BX-BENIGN. Past Anesthesia/Blood Transfusion Reactions: Motion Sickness, Postoperative Nausea & Vomiting (PONV) Smoking Status: Never smoker - Past Family History Mother Family Medical History: Cancer Additional Family Medical History / Comment(s): MOTHER - FROM BREAST CANCER AT THE AGE OF 83 YRS. GRANDMOTHER - BREAST CANCER Father Family Medical History: Congestive Heart Failure (CHF), Diabetes Mellitus Additional Family Medical History / Comment(s): FATHER FROM CHF AT THE AGE OF 78YRS. Medications and Allergies Home Medications Medication Instructions Recorded Confirmed Type ALPRAZolam [Xanax] 0.5 mg PO BID 06/04/15 07/21/17 History Citalopram Hydrobromide [CeleXA] 40 mg PO HS 06/04/15 07/21/17 History Megestrol [Megace] 40 mg PO BID 06/04/15 07/21/17 History Calcium Carbonate/Vitamin D3 1 tab PO DAILY 07/21/17 07/21/17 History [Calcium 600-Vit D3 200 Tablet] Doxepin HCl [SINEquan] 50 mg PO HS 07/21/17 07/21/17 History Ergocalciferol [Vitamin D2] 50,000 unit PO SA 07/21/17 07/21/17 History Furosemide [Lasix] 40 mg PO DAILY 07/21/17 07/21/17 History Gabapentin 800 mg PO BID 07/21/17 07/21/17 History Meloxicam 15 mg PO DAILY 07/21/17 07/21/17 History Montelukast [Singulair] 10 mg PO 07/21/17 07/21/17 History Phentermine HCl 37.5 mg PO QA 07/21/17 07/21/17 History Potassium Chloride [Klor-Con 20] 20 meq PO DAILY 07/21/17 07/21/17 History Ranitidine HCl [Zantac] 150 mg PO 07/21/17 07/21/17 History Vitmain B-12 6000mcg 6,000 mcg PO DAILY 07/21/17 07/21/17 History Allergies Allergy/AdvReac Type Severity Reaction Status Date / Time ibuprofen [From Motrin] Allergy Unknown Nausea & Verified 07/22/17 12:45 Vomiting aspirin AdvReac Unknown Nausea & Verified 07/22/17 12:45 Vomiting NSAIDS (Non-Steroidal AdvReac Unknown Nausea & Verified 07/22/17 12:45 Anti-Inflamma Vomiting Physical Exam Osteopathic Statement: *. No significant issues noted on an osteopathic structural exam other than those noted in the History and Physical/Consult. Vitals: Vital Signs Temp Pulse Pulse Pulse Resp BP BP 07/23/17 07:56 07/23/17 07:00 89 12 127/73 07/23/17 06:00 96 12 133/77 07/23/17 05:00 96 12 145/76 07/23/17 04:00 98.7 F 92 12 138/77 07/23/17 03:00 92 12 133/64 07/23/17 02:00 97 12 149/73 07/23/17 01:00 96 12 123/60 07/23/17 00:00 98.3 F 105 H 12 157/76 07/22/17 23:00 97 12 151/69 07/22/17 22:37 97 12 151/69 07/22/17 22:00 95 12 144/75 07/22/17 21:00 96 13 156/81 07/22/17 20:00 98.2 F 88 12 156/70 07/22/17 19:00 80 11 L 106/57 18 18:50 80 12 106/57 18 18:40 79 12 106/57 18 18:30 79 12 118/62 18 18:20 78 12 118/62 18 18:10 81 12 118/62 0518 18:00 81 11 L 140/70 18 17:50 89 20 170/76 18 17:40 91 20 170/76 18 17:30 88 11 L 146/70 07/22/17 17:20 85 11 L 146/70 18 17:10 85 12 146/70 18 17:00 84 12 149/72 07/22/17 16:50 98.7 F 86 17 149/72 07/22/17 16:40 86 134/65 07/22/17 16:37 135/67 07/22/17 12:36 97.7 F 88 16 BP Pulse Ox 07/23/17 07:56 94 L 07/23/17 07:00 94 L 07/23/17 06:00 94 L 07/23/17 05:00 95 07/23/17 04:00 94 L 07/23/17 03:00 94 L 07/23/17 02:00 94 L 07/23/17 01:00 95 07/23/17 00:00 93 L 07/22/17 23:00 95 07/22/17 22:37 94 L 07/22/17 22:00 95 07/22/17 21:00 97 07/22/17 20:00 97 07/22/17 19:00 95 07/22/17 18:50 95 07/22/17 18:40 97 07/22/17 18:30 97 07/22/17 18:20 97 07/22/17 18:10 98 07/22/17 18:00 100 07/22/17 17:50 99 07/22/17 17:40 100 07/22/17 17:30 100 07/22/17 17:20 100 07/22/17 17:10 100 07/22/17 17:00 100 07/22/17 16:50 100 07/22/17 16:40 07/22/17 16:37 07/22/17 12:36 137/63 96 Intake and Output 07/22/17 07/23/17 07/23/17 22:59 06:59 14:59 Intake Total 750 980.583 115.6 Output Total 415 655 70 Balance 335 325.583 45.6 Intake: IV 750 700 100 Lactated Ringers 1,000 ml 700 700 100 @ 100 mls/hr IV .Q10H ROSIE Rx#:[id number] Intake, IV Titration 280.583 15.6 Amount Propofol 1,000 mg In 280.583 15.6 Empty Bag 1 bag @ Titrate IV .Q0M ROSIE Rx#: [id number] Output: Urine 405 655 70 Estimated Blood Loss 10 Other: Voiding Method Indwelling Catheter Indwelling Catheter Weight 220 kg No acute distress, sedated, with an orally placed endotracheal tube and OG tube. HEENT examination is grossly unremarkable. Mucous membranes are moist. Neck supple. Full range of motion. No adenopathy thyromegaly or neck vein distention. Cardiovascular examination reveals regular rhythm rate. S1-S2 normal. No S3 or S4. No discernible murmur noted. Lungs reveal coarse bilateral breath sounds. Breath sounds equal bilaterally. No wheezes. No rhonchi. No crackles. Abdomen soft and obese. Bowel sounds noted. Extremities are intact. No cyanosis clubbing or edema. Skin is without rash or lesion. Neurologic examination could not be adequately assessed. Results - Laboratory Findings CBC and BMP: 07/23/17 04:32 07/23/17 04:32 ABG ABG pH 7.40 (7.35-7.45) 07/23/17 04:20 ABG pCO2 37 mmHg (35-45) 07/23/17 04:20 ABG pO2 71 mmHg (83-108) L 07/23/17 04:20 ABG O2 Saturation 94.9 % (94-97) 07/23/17 04:20 Abnormal lab findings: Abnormal Labs 07/21/17 07/21/17 07/21/17 09:35 09:35 11:16 Neutrophils # 9.2 H Lymphocytes # 0.7 L ABG pO2 Carbon Dioxide BUN 25 H Glucose 122 H POC Glucose (mg/dL) Total Bilirubin 2.3 H Unconjugated Bilirubin Delta Bilirubin AST Total Protein Urine Appearance Cloudy H Urine Protein Trace H Ur Leukocyte Esterase Trace H 07/22/17 07/22/17 07/23/17 09:27 16:39 00:20 Neutrophils # Lymphocytes # ABG pO2 Carbon Dioxide BUN Glucose 102 H POC Glucose (mg/dL) 122 H 150 H Total Bilirubin 2.3 H Unconjugated Bilirubin 1.8 H Delta Bilirubin 0.5 H AST Total Protein Urine Appearance Urine Protein Ur Leukocyte Esterase 07/23/17 07/23/17 07/23/17 04:20 04:32 04:32 Neutrophils # 8.1 H Lymphocytes # 0.8 L ABG pO2 71 L Carbon Dioxide 19 L BUN Glucose 153 H POC Glucose (mg/dL) Total Bilirubin Unconjugated Bilirubin Delta Bilirubin 0.5 H AST 37 H Total Protein 6.2 L Urine Appearance Urine Protein Ur Leukocyte Esterase 07/23/17 06:23 Neutrophils # Lymphocytes # ABG pO2 Carbon Dioxide BUN Glucose POC Glucose (mg/dL) 145 H Total Bilirubin Unconjugated Bilirubin Delta Bilirubin AST Total Protein Urine Appearance Urine Protein Ur Leukocyte Esterase - Diagnostic Findings Chest x-ray: image reviewed (Labs x-rays a medications are all reviewed.) Assessment and Plan Assessment: Assessment Postop day #1, status post laparoscopic cholecystectomy Difficult intubation with possible airway trauma, which required the patient stay on mechanical ventilation overnight. The patient did receive Decadron 6 mg IV push every 6 hours for possible airway edema. History of UTI. History of sleep apnea syndrome, currently on home CPAP History of bilateral carpal tunnel syndrome History of asthma/COPD History of GERD History of osteoarthritis Multiple other medical problems and comorbidities Plan: Plan dated 07/23/2017 The patient will be weaned off her propofol. We will attempt some weaning parameters. We'll make sure that we do a cuff leak test. If the patient seems stable she has a stable airway, we would consider extubation. She has been receiving Decadron 6 mg IV push every 6 hours. Additional recommendations and suggestions are forthcoming. On the ventilator, she is on the assist control mode, rate of 12, tidal volume 700, FiO2 50%, PEEP of 5. Arterial blood gases show a PaO2 of 71 PaCO2 37 and pH 7.4. She was on propofol at 50 mics per kilogram per minute. We'll wean that off. She is getting lactated Ringer's at 100 mL an hour. Time with Patient: Greater than 30
--- NOTE | 2017-07-23 09:08 | P.PN ---
Subjective Progress Note Date: 07/23/17 Patient seen and examined at bedside. Extubated this morning. States she is tired. She does complain of some throat pain. She denies abdominal pain. She has no additional complaints at this time. Objective - Vital Signs Vital signs: Vital Signs Temp 99.4 F 07/23/17 08:00 Pulse 98 07/23/17 08:00 Resp 20 07/23/17 08:00 BP 152/69 07/23/17 08:00 Pulse Ox 94 L 07/23/17 08:00 Intake & Output 07/22/17 07/23/17 07/23/17 18:59 06:59 18:59 Intake Total 850 1380.583 215.6 Output Total 100 970 270 Balance 750 410.583 -54.4 Weight 220 kg Intake: IV 850 1100 200 Lactated Ringers 1,000 ml 300 1100 200 @ 100 mls/hr IV .Q10H ROSIE Rx#:[id number] Intake, IV Titration 280.583 15.6 Amount Propofol 1,000 mg In 280.583 15.6 Empty Bag 1 bag @ Titrate IV .Q0M ROSIE Rx#: [id number] Output: Urine 90 970 270 Estimated Blood Loss 10 Other: Voiding Method Indwelling Catheter Indwelling Catheter - Constitutional General appearance: Present: cooperative, morbidly obese - Neck Neck: Present: normal ROM. Absent: lymphadenopathy, stridor - Respiratory Details: No difficulty with respiration - Gastrointestinal Gastrointestinal Comment(s): Soft, appropriate tenderness, nondistended, no rebound, no guarding, incision sites with dressings are clean, dry and intact - Musculoskeletal Musculoskeletal: Present: generalized weakness - Psychiatric Psychiatric: Present: A&O x's 3, appropriate affect - Labs CBC & Chem 7: 07/23/17 04:32 07/23/17 04:32 Labs: Abnormal Lab Results - Last 24 Hours (Table) 07/22/17 07/22/17 07/23/17 Range/Units 09:27 16:39 00:20 Neutrophils # (1.3-7.7) k/uL Lymphocytes # (1.0-4.8) k/uL ABG pO2 (83-108) mmHg Carbon Dioxide (22-30) mmol/L Glucose 102 H (74-99) mg/dL POC Glucose (mg/dL) 122 H 150 H (75-99) mg/dL Total Bilirubin 2.3 H (0.2-1.3) mg/dL Unconjugated Bilirubin 1.8 H (0.0-1.1) mg/dL Delta Bilirubin 0.5 H (0.0-0.2) mg/dL AST (14-36) U/L Total Protein (6.3-8.2) g/dL 07/23/17 07/23/17 07/23/17 Range/Units 04:20 04:32 04:32 Neutrophils # 8.1 H (1.3-7.7) k/uL Lymphocytes # 0.8 L (1.0-4.8) k/uL ABG pO2 71 L (83-108) mmHg Carbon Dioxide 19 L (22-30) mmol/L Glucose 153 H (74-99) mg/dL POC Glucose (mg/dL) (75-99) mg/dL Total Bilirubin (0.2-1.3) mg/dL Unconjugated Bilirubin (0.0-1.1) mg/dL Delta Bilirubin 0.5 H (0.0-0.2) mg/dL AST 37 H (14-36) U/L Total Protein 6.2 L (6.3-8.2) g/dL 07/23/17 Range/Units 06:23 Neutrophils # (1.3-7.7) k/uL Lymphocytes # (1.0-4.8) k/uL ABG pO2 (83-108) mmHg Carbon Dioxide (22-30) mmol/L Glucose (74-99) mg/dL POC Glucose (mg/dL) 145 H (75-99) mg/dL Total Bilirubin (0.2-1.3) mg/dL Unconjugated Bilirubin (0.0-1.1) mg/dL Delta Bilirubin (0.0-0.2) mg/dL AST (14-36) U/L Total Protein (6.3-8.2) g/dL Assessment and Plan (1) Biliary colic Narrative/Plan: 56-year-old female with biliary colic secondary to biliary dyskinesia, postoperative day #1 from laparoscopic cholecystectomy - Extubated this morning, no respiratory distress at this time - Nursing will be performing a bedside swallow study prior to advancing diet - Continue recommendations from pulmonary - Progressing slowly - Increase activity as tolerated Current Visit: Yes Status: Acute Code(s): K80.50 - CALCULUS OF BILE DUCT W/ O CHOLANGITIS OR CHOLECYST W/O OBST SNOMED Code(s): 18196103
[2017-07-23] MEDS: GABAPENTIN 400 MG CAP PO SCH ×2 (10:45→20:12)
[2017-07-23] MEDS: MEGESTROL 40 MG TAB PO SCH ×2 (10:46→20:11)
[2017-07-23] MEDS: MELOXICAM 7.5 MG TAB PO SCH (10:46)
[2017-07-23] MEDS: POTASSIUM CHLORIDE ER 20 MEQ TAB.ER PO SCH (10:48)
[2017-07-23] MEDS: CYANOCOBALAMIN 500 MCG TAB PO SCH (10:48)
[2017-07-23] MEDS: CALCIUM CARB-VIT D 500MG-200UN 1 EACH TAB PO SCH (11:33)
[2017-07-23 11:46] LABS: Glucose,Whole Blood 149 mg/dL (75-99)
[2017-07-23] MEDS ORDERED: MORPHINE SULFATE 4 MG/ML SYRINGE IVP PRN (17:09)
[2017-07-23] MEDS ORDERED: HYDROcodone/APAP 5-325MG 1 EACH TAB PO PRN (17:09)
[2017-07-23 17:22] LABS: Glucose,Whole Blood 151 mg/dL (75-99)
--- NOTE | 2017-07-23 17:32 | P.PN ---
Subjective Progress Note Date: 07/23/17 Principal diagnosis: Acute cholecystitis status post laparoscopic cholecystectomy Pericolic Postoperative respiratory failure 56-year-old female with a past medical history of asthma/COPD, GERD, osteoarthritis, chronic back pain, endometriosis, sleep apnea syndrome, on CPAP , and bilateral carpal tunnel syndrome. The patient presented to the emergency room on July 21 with abdominal pain. Right upper quadrant. She also has some nausea. Chest some diarrhea as well. The pain was 10 out of 10. She went for a cholecystectomy. There is no problems with the surgery but she was very difficult intubation. Anesthesia about an hour to intubate this patient. There were very concerned about airway obstruction and trauma to the upper airway. She came back here after surgery to be placed on the ventilator overnight. I placed her on Decadron 6 mg IV push every 6 hours. Patient was successfully extubated this morning; she is awake alert and oriented responding to questions appropriately Objective - Vital Signs Vital signs: Vital Signs Temp 98.6 F 07/23/17 16:45 Pulse 93 07/23/17 16:45 Resp 18 07/23/17 16:45 BP 132/73 07/23/17 16:45 Pulse Ox 95 07/23/17 16:45 Intake & Output 07/22/17 07/23/17 07/23/17 18:59 06:59 18:59 Intake Total 850 1380.583 665.6 Output Total 671 276 0324 Balance 750 410.583 -1154.4 Weight 220 kg Intake: IV 850 1100 650 Lactated Ringers 1,000 ml 300 1100 650 @ 100 mls/hr IV .Q10H ROSIE Rx#:[id number] Intake, IV Titration 280.583 15.6 Amount Propofol 1,000 mg In 280.583 15.6 Empty Bag 1 bag @ Titrate IV .Q0M ROSIE Rx#: [id number] Output: Urine 90 970 1820 Estimated Blood Loss 10 Other: Voiding Method Indwelling Catheter Indwelling Catheter Indwelling Catheter - Exam - Constitutional General appearance: Present: average body habitus, cooperative, no acute distress - EENT Eyes: Present: anicteric sclerae, EOMI, PERRLA, normal appearance ENT: Present: hearing grossly normal, normal oropharynx Ears: bilateral: normal - Neck Neck: Present: normal ROM. Absent: lymphadenopathy, rigidity, thyromegaly Carotids: negative: bruit present Thyroid: bilateral: normal size, negative: enlarged, nodule - Respiratory Respiratory: bilateral: CTA, negative: rales, rhonchi, wheezing - Cardiovascular Rhythm: regular Heart sounds: normal: S1, S2 Abnormal Heart Sounds: Absent: systolic murmur, diastolic murmur - Gastrointestinal General gastrointestinal: Present: normal bowel sounds, soft. Absent: distended , organomegaly, tenderness - Genitourinary Genitourinary Comment(s): deferred - Integumentary Integumentary: Present: normal turgor. Absent: jaundiced, rash, ulcer - Neurologic Neurologic: Present: CNII-XII intact. Absent: focal deficits - Musculoskeletal Musculoskeletal: Present: gait normal, strength equal bilaterally - Psychiatric Psychiatric: Present: A&O x's 3, appropriate affect, intact judgment & insight - Labs CBC & Chem 7: 07/23/17 04:32 07/23/17 04:32 Labs: Abnormal Lab Results - Last 24 Hours (Table) 07/23/17 07/23/17 07/23/17 Range/Units 00:20 04:20 04:32 Neutrophils # 8.1 H (1.3-7.7) k/uL Lymphocytes # 0.8 L (1.0-4.8) k/uL ABG pO2 71 L (83-108) mmHg Carbon Dioxide (22-30) mmol/L Glucose (74-99) mg/dL POC Glucose (mg/dL) 150 H (75-99) mg/dL Delta Bilirubin (0.0-0.2) mg/dL AST (14-36) U/L Total Protein (6.3-8.2) g/dL 07/23/17 07/23/17 07/23/17 Range/Units 04:32 06:23 11:43 Neutrophils # (1.3-7.7) k/uL Lymphocytes # (1.0-4.8) k/uL ABG pO2 (83-108) mmHg Carbon Dioxide 19 L (22-30) mmol/L Glucose 153 H (74-99) mg/dL POC Glucose (mg/dL) 145 H 149 H (75-99) mg/dL Delta Bilirubin 0.5 H (0.0-0.2) mg/dL AST 37 H (14-36) U/L Total Protein 6.2 L (6.3-8.2) g/dL Assessment and Plan Assessment: 1. Biliary colic/acute cholecystitis - Patient is postoperative day #1 - Patient was extubated this morning; is being monitored closely in ICU - Bedside swallow ordered prior to advancing diet - Continue with incentive spirometry and increase activity as tolerated 2. Vent dependent respiratory failure post surgery - Difficult intubation with possible airway trauma - Patient received IV Decadron every 6 hours for possible airway edema - She is successfully extubated and is being monitored by pulmonary service and ICU 3. History of sleep apnea syndrome; patient uses CPAP at home; we will continue home settings 4. Asthma/COPD; not in exacerbation 5. Morbid obesity 6. DVT/GI prophylaxis; per surgical service discretion CODE STATUS; full code Time with Patient: Greater than 30
[2017-07-23] MEDS: CITALOPRAM HYDROBROMIDE 20 MG TAB PO SCH (20:12)
[2017-07-23] MEDS: MONTELUKAST 10 MG TAB PO SCH (20:12)
[2017-07-23] MEDS: DOXEPIN 25 MG CAP PO SCH (20:12)
[2017-07-23 20:37] LABS: Glucose,Whole Blood 157 mg/dL (75-99)
[2017-07-24] MEDS: HEPARIN SODIUM,PORCINE 5,000 UNIT/ML 1 ML VIAL SQ SCH ×3 (00:57→15:22)
[2017-07-24 01:27] LABS: Glucose,Whole Blood 151 mg/dL (75-99)
[2017-07-24 05:34] LABS: Glucose,Whole Blood 120 mg/dL (75-99)
[2017-07-24 07:33] LABS: Basophils % (A) 0 %; Eosinophils % (A) 0 %; HCT 36.1 % (34.0-46.0); HGB 11.6 gm/dL (11.4-16.0); Lymphocytes # (A) 1.3 k/uL (1.0-4.8); Lymphocytes % (A) 10 %; MCH 30.3 pg (25.0-35.0); MCHC 32.3 g/dL (31.0-37.0); MCV 93.9 fL (80.0-100.0); Mean Platelet Volume 7.8; Monocytes # (A) 0.7 k/uL (0-1.0); Monocytes % (A) 5 %; Neutrophils # (A) 11.1 k/uL (1.3-7.7); Neutrophils % (A) 84 %; Platelet Count 290 k/uL (150-450); RBC 3.84 m/uL (3.80-5.40); RDW 13.2 % (11.5-15.5); WBC 13.2 k/uL (3.8-10.6)
[2017-07-24 07:50] LABS: Calcium 8.9 mg/dL (8.4-10.2); Magnesium 2.2 mg/dL (1.6-2.3); Phosphorus 2.8 mg/dL (2.5-4.5); Potassium 3.9 mmol/L (3.5-5.1)
[2017-07-24] MEDS: CYANOCOBALAMIN 500 MCG TAB PO SCH (08:49)
[2017-07-24] MEDS: PANTOPRAZOLE 40 MG/10 ML VIAL IVP SCH ×2 (08:49→22:18)
[2017-07-24] MEDS: GABAPENTIN 400 MG CAP PO SCH ×2 (08:50→22:17)
[2017-07-24] MEDS: MEGESTROL 40 MG TAB PO SCH ×2 (08:50→22:17)
[2017-07-24] MEDS: MELOXICAM 7.5 MG TAB PO SCH (08:50)
[2017-07-24] MEDS: POTASSIUM CHLORIDE ER 20 MEQ TAB.ER PO SCH ×2 (08:50→18:39)
--- NOTE | 2017-07-24 11:05 | P.PN ---
Subjective Progress Note Date: 07/24/17 Patient seen and examined at bedside. She is doing well. She denies any abdominal pain. She denies any nausea and vomiting. She is tolerating her diet. She states that she is occasionally coughing up phlegm. Objective - Vital Signs Vital signs: Vital Signs Temp 98.1 F 07/24/17 07:00 Pulse 70 07/24/17 07:00 Resp 14 07/24/17 07:00 BP 125/74 07/24/17 07:00 Pulse Ox 93 L 07/24/17 07:39 Intake & Output 07/23/17 07/24/17 07/24/17 18:59 06:59 18:59 Intake Total 665.6 720 Output Total 1821 Balance -1155.4 720 Intake: IV 650 Lactated Ringers 1,000 ml 650 @ 100 mls/hr IV .Q10H [facility] Rx#:[id number] Intake, IV Titration 15.6 Amount Propofol 1,000 mg In 15.6 Empty Bag 1 bag @ Titrate IV .Q0M [facility] Rx#: [id number] Oral 720 Output: Urine 1821 Other: Voiding Method Indwelling Catheter Toilet # Voids 2 - Constitutional General appearance: Present: cooperative - EENT ENT: Present: hearing grossly normal - Neck Neck: Present: normal ROM - Respiratory Details: No difficulty with respiration - Gastrointestinal Gastrointestinal Comment(s): Soft, appropriate tenderness, nondistended, no rebound, no guarding, incision sites are clean, dry and intact with álvaro in place - Musculoskeletal Musculoskeletal: Present: generalized weakness - Psychiatric Psychiatric: Present: A&O x's 3 - Labs CBC & Chem 7: 07/24/17 06:20 07/24/17 06:20 Labs: Abnormal Lab Results - Last 24 Hours (Table) 07/23/17 07/23/17 07/23/17 Range/Units 11:43 17:19 20:35 WBC (3.8-10.6) k/uL Neutrophils # (1.3-7.7) k/uL Glucose (74-99) mg/dL POC Glucose (mg/dL) 149 H 151 H 157 H (75-99) mg/dL 07/24/17 07/24/17 07/24/17 Range/Units 01:25 05:32 06:20 WBC 13.2 H (3.8-10.6) k/uL Neutrophils # 11.1 H (1.3-7.7) k/uL Glucose (74-99) mg/dL POC Glucose (mg/dL) 151 H 120 H (75-99) mg/dL 07/24/17 Range/Units 06:20 WBC (3.8-10.6) k/uL Neutrophils # (1.3-7.7) k/uL Glucose 115 H (74-99) mg/dL POC Glucose (mg/dL) (75-99) mg/dL Assessment and Plan (1) Biliary colic Narrative/Plan: 56-year-old female with biliary colic secondary to biliary dyskinesia, postoperative day #2 from laparoscopic cholecystectomy - Tolerating extubation well, on surgical floor - Continue diet - Continue recommendations from pulmonary, patient requesting DuoNeb's - Progressing slowly - Increase activity as tolerated - Okay for the patient to shower, álvaro to be removed as an outpatient Current Visit: Yes Status: Acute Code(s): K80.50 - CALCULUS OF BILE DUCT W/ O CHOLANGITIS OR CHOLECYST W/O OBST SNOMED Code(s): 91310855
[2017-07-24] MEDS ORDERED: ERGOCALCIFEROL 50,000 UNIT CAP PO SCH (12:00)
[2017-07-24 12:16] LABS: Glucose,Whole Blood 102 mg/dL (75-99)
--- NOTE | 2017-07-24 13:23 | P.PN ---
Subjective Progress Note Date: 07/24/17 Principal diagnosis: Cholecystitis, status post cholecystectomy. Prolonged ventilator management. Pulmonary consult dated 07/23/2017 56-year-old female with a past medical history of asthma/COPD, GERD, osteoarthritis, chronic back pain, endometriosis, sleep apnea syndrome, on CPAP , and bilateral carpal tunnel syndrome. The patient presented to the emergency room on July 21 with abdominal pain. Right upper quadrant. She also has some nausea. Chest some diarrhea as well. The pain was 10 out of 10. She went for a cholecystectomy. There is no problems with the surgery but she was very difficult intubation. Anesthesia about an hour to intubate this patient. There were very concerned about airway obstruction and trauma to the upper airway. She came back here after surgery to be placed on the ventilator overnight. I placed her on Decadron 6 mg IV push every 6 hours. The patient will be attempted to be weaned today. We'll put the patient on PSV and CPAP. We'll stop her propofol. We'll make sure that we do a cuff leak as well as weaning parameters. Hopefully we can get her extubated. She is quite a large lady. Patient is seen again today 07/25/1999 810 in follow-up on the surgical floor. She is currently resting quite comfortably in bed. She is awake and alert in no acute distress. She was successfully extubated yesterday. She is maintaining good O2 saturation in the 90s on room air. She's been afebrile. Hemodynamically stable. White count 13.2. Hemoglobin 11.6. Creatinine 0.90. She is hoping to go home today. Objective - Vital Signs Vital signs: Vital Signs Temp 98.1 F 07/24/17 07:00 Pulse 70 07/24/17 07:00 Resp 14 07/24/17 07:00 BP 125/74 07/24/17 07:00 Pulse Ox 93 L 07/24/17 07:39 Intake & Output 07/23/17 07/24/17 07/24/17 18:59 06:59 18:59 Intake Total 665.6 720 Output Total 1821 Balance -1155.4 720 Intake: IV 650 Lactated Ringers 1,000 ml 650 @ 100 mls/hr IV .Q10H [facility] Rx#:[id number] Intake, IV Titration 15.6 Amount Propofol 1,000 mg In 15.6 Empty Bag 1 bag @ Titrate IV .Q0M [facility] Rx#: [id number] Oral 720 Output: Urine 1821 Other: Voiding Method Indwelling Catheter Toilet # Voids 2 - Exam Awake alert oriented 3. On room air. HEENT examination is grossly unremarkable. Mucous membranes are moist. Neck supple. Full range of motion. No adenopathy thyromegaly or neck vein distention. Cardiovascular examination reveals regular rhythm rate. S1-S2 normal. No S3 or S4. No discernible murmur noted. Lungs reveal coarse bilateral breath sounds. Breath sounds equal bilaterally. No wheezes. No rhonchi. No crackles. Abdomen soft and obese. Bowel sounds noted. Extremities are intact. No cyanosis clubbing or edema. Skin is without rash or lesion. Neurologic examination could not be adequately assessed. - Labs CBC & Chem 7: 07/24/17 06:20 07/24/17 06:20 Labs: Abnormal Lab Results - Last 24 Hours (Table) 07/23/17 07/23/17 07/24/17 Range/Units 17:19 20:35 01:25 WBC (3.8-10.6) k/uL Neutrophils # (1.3-7.7) k/uL Glucose (74-99) mg/dL POC Glucose (mg/dL) 151 H 157 H 151 H (75-99) mg/dL 07/24/17 07/24/17 07/24/17 Range/Units 05:32 06:20 06:20 WBC 13.2 H (3.8-10.6) k/uL Neutrophils # 11.1 H (1.3-7.7) k/uL Glucose 115 H (74-99) mg/dL POC Glucose (mg/dL) 120 H (75-99) mg/dL 07/24/17 Range/Units 11:56 WBC (3.8-10.6) k/uL Neutrophils # (1.3-7.7) k/uL Glucose (74-99) mg/dL POC Glucose (mg/dL) 102 H (75-99) mg/dL Assessment and Plan Assessment: Assessment Postop day #2, status post laparoscopic cholecystectomy Difficult intubation with possible airway trauma, which required the patient stay on mechanical ventilation overnight. The patient did receive Decadron 6 mg IV push every 6 hours for possible airway edema. Subsequently extubated yesterday. Currently maintaining good O2 saturations in the 90s on room air. The patient was seen and evaluated by Dr. Prescott. She is stable from the pulmonary and critical care standpoint. Maintaining good O2 saturations on room air. No difficulty swallowing. No difficulty breathing. History of UTI. History of sleep apnea syndrome, currently on home CPAP History of bilateral carpal tunnel syndrome History of asthma/COPD History of GERD History of osteoarthritis Multiple other medical problems and comorbidities Plan: The patient was seen and evaluated by Dr. Prescott. She is stable from the pulmonary critical care standpoint. She can be discharged home once cleared by surgical services. I, the cosigning physician, performed a history & physical examination of the patient. Lungs sounds are clear. Maintaining good O2 saturations in the 90s on room air. I discussed the assessment and plan of care with my nurse practitioner, Lashonda Caballero. I attest to the above note as dictated by her.
[2017-07-24] MEDS: IPRATROPIUM-ALBUTEROL 3 ML NEB INHALATION PRN ×2 (13:40→19:48)
[2017-07-24] MEDS: CALCIUM CARB-VIT D 500MG-200UN 1 EACH TAB PO SCH (15:22)
--- NOTE | 2017-07-24 15:28 | P.PN ---
Subjective Progress Note Date: 07/24/17 Principal diagnosis: Acute cholecystitis status post laparoscopic cholecystectomy Pericolic Postoperative respiratory failure 56-year-old female with a past medical history of asthma/COPD, GERD, osteoarthritis, chronic back pain, endometriosis, sleep apnea syndrome, on CPAP , and bilateral carpal tunnel syndrome. The patient presented to the emergency room on July 21 with abdominal pain. Right upper quadrant. She also has some nausea. Chest some diarrhea as well. The pain was 10 out of 10. She went for a cholecystectomy. There is no problems with the surgery but she was very difficult intubation. Anesthesia about an hour to intubate this patient. There were very concerned about airway obstruction and trauma to the upper airway. She came back here after surgery to be placed on the ventilator overnight. I placed her on Decadron 6 mg IV push every 6 hours. Patient was successfully extubated this morning; she is awake alert and oriented responding to questions appropriately 07/24/2017 Patient is seen on [facility] floor; she is awake alert and oriented and is in no acute distress; patient denies any chest pain or shortness of breath and is able to maintain her oxygen saturation over 90% on room air. Patient is able to tolerate her diet well; wants to be discharged home. Objective - Vital Signs Vital signs: Vital Signs Temp 98.3 F 07/24/17 15:00 Pulse 91 07/24/17 15:00 Resp 16 07/24/17 15:00 BP 142/74 07/24/17 15:00 Pulse Ox 95 07/24/17 15:00 Intake & Output 07/23/17 07/24/17 07/24/17 18:59 06:59 18:59 Intake Total 665.6 720 800 Output Total 1821 Balance -1155.4 720 800 Intake: IV 650 Lactated Ringers 1,000 ml 650 @ 100 mls/hr IV .Q10H [facility] Rx#:[id number] Intake, IV Titration 15.6 Amount Propofol 1,000 mg In 15.6 Empty Bag 1 bag @ Titrate IV .Q0M [facility] Rx#: [id number] Oral 720 Lipid 800 Lactated Ringers 1,000 ml 800 @ 100 mls/hr IV .Q10H [facility] Rx#:[id number] Output: Urine 1821 Other: Voiding Method Indwelling Catheter Toilet # Voids 2 2 - Exam - Constitutional General appearance: Present: average body habitus, cooperative, no acute distress - EENT Eyes: Present: anicteric sclerae, EOMI, PERRLA, normal appearance ENT: Present: hearing grossly normal, normal oropharynx Ears: bilateral: normal - Neck Neck: Present: normal ROM. Absent: lymphadenopathy, rigidity, thyromegaly Carotids: negative: bruit present Thyroid: bilateral: normal size, negative: enlarged, nodule - Respiratory Respiratory: bilateral: CTA, negative: rales, rhonchi, wheezing - Cardiovascular Rhythm: regular Heart sounds: normal: S1, S2 Abnormal Heart Sounds: Absent: systolic murmur, diastolic murmur - Gastrointestinal General gastrointestinal: Present: normal bowel sounds, soft. Absent: distended , organomegaly, tenderness - Genitourinary Genitourinary Comment(s): deferred - Integumentary Integumentary: Present: normal turgor. Absent: jaundiced, rash, ulcer - Neurologic Neurologic: Present: CNII-XII intact. Absent: focal deficits - Musculoskeletal Musculoskeletal: Present: gait normal, strength equal bilaterally - Psychiatric Psychiatric: Present: A&O x's 3, appropriate affect, intact judgment & insight - Labs CBC & Chem 7: 07/24/17 06:20 07/24/17 06:20 Labs: Abnormal Lab Results - Last 24 Hours (Table) 07/23/17 07/23/17 07/24/17 Range/Units 17:19 20:35 01:25 WBC (3.8-10.6) k/uL Neutrophils # (1.3-7.7) k/uL Glucose (74-99) mg/dL POC Glucose (mg/dL) 151 H 157 H 151 H (75-99) mg/dL 07/24/17 07/24/17 07/24/17 Range/Units 05:32 06:20 06:20 WBC 13.2 H (3.8-10.6) k/uL Neutrophils # 11.1 H (1.3-7.7) k/uL Glucose 115 H (74-99) mg/dL POC Glucose (mg/dL) 120 H (75-99) mg/dL 07/24/17 Range/Units 11:56 WBC (3.8-10.6) k/uL Neutrophils # (1.3-7.7) k/uL Glucose (74-99) mg/dL POC Glucose (mg/dL) 102 H (75-99) mg/dL Assessment and Plan Assessment: 1. Biliary colic/acute cholecystitis; status post laparoscopic cholecystectomy - Patient is postoperative day # 2 - Patient was extubated this morning; is being monitored closely in ICU - Bedside swallow ordered prior to advancing diet - Continue with incentive spirometry and increase activity as tolerated 2. Vent dependent respiratory failure post surgery - Difficult intubation with possible airway trauma - Patient received IV Decadron every 6 hours for possible airway edema - She is successfully extubated and is being monitored by pulmonary service and ICU 3. History of sleep apnea syndrome; patient uses CPAP at home; we will continue home settings 4. Asthma/COPD; not in exacerbation 5. Morbid obesity 6. DVT/GI prophylaxis; per surgical service discretion Disposition; we will advance diet and increase activity as tolerated; patient did have an episode of elevated temperature and also has an elevated white blood count of 13.2; we will monitor closely and monitor CBC for tomorrow morning; possible discharge home tomorrow if remains stable CODE STATUS; full code Time with Patient: Greater than 30
[2017-07-24] MEDS: ALPRAZolam 0.5 MG TAB PO PRN (18:37)
[2017-07-24 22:16] LABS: Glucose,Whole Blood 107 mg/dL (75-99)
[2017-07-24] MEDS: CITALOPRAM HYDROBROMIDE 20 MG TAB PO SCH (22:17)
[2017-07-24] MEDS: DOXEPIN 25 MG CAP PO SCH (22:17)
[2017-07-24] MEDS: MONTELUKAST 10 MG TAB PO SCH (22:18)
[2017-07-25] MEDS: HEPARIN SODIUM,PORCINE 5,000 UNIT/ML 1 ML VIAL SQ SCH ×3 (01:19→14:57)
[2017-07-25 07:04] VITALS: BP 149/84; RESP 14; TEMP 98.1
[2017-07-25 07:20] LABS: Basophils % (A) 0 %; Eosinophils # (A) 0.1 k/uL (0-0.7); Eosinophils % (A) 1 %; HCT 33.8 % (34.0-46.0); HGB 11.3 gm/dL (11.4-16.0); Lymphocytes % (A) 20 %; MCH 30.6 pg (25.0-35.0); MCHC 33.4 g/dL (31.0-37.0); MCV 91.4 fL (80.0-100.0); Mean Platelet Volume 7.4; Monocytes # (A) 0.6 k/uL (0-1.0); Monocytes % (A) 6 %; Neutrophils # (A) 7.2 k/uL (1.3-7.7); Neutrophils % (A) 71 %; Platelet Count 288 k/uL (150-450); RDW 13.3 % (11.5-15.5); WBC 10.1 k/uL (3.8-10.6)
[2017-07-25 07:32] LABS: Anion Gap 12 mmol/L; Blood Urea Nitrogen 17 mg/dL (7-17); Calcium 8.7 mg/dL (8.4-10.2); Carbon Dioxide 26 mmol/L (22-30); Chloride 107 mmol/L (98-107); Glucose 106 mg/dL (74-99); Magnesium 2.1 mg/dL (1.6-2.3); Phosphorus 3.5 mg/dL (2.5-4.5); Sodium 145 mmol/L (137-145)
[2017-07-25] MEDS: MELOXICAM 7.5 MG TAB PO SCH (08:20)
[2017-07-25] MEDS: POTASSIUM CHLORIDE ER 20 MEQ TAB.ER PO SCH (08:20)
[2017-07-25] MEDS: MEGESTROL 40 MG TAB PO SCH (08:20)
[2017-07-25] MEDS: GABAPENTIN 400 MG CAP PO SCH (08:21)
[2017-07-25] MEDS: CYANOCOBALAMIN 500 MCG TAB PO SCH (08:21)
[2017-07-25] MEDS: PANTOPRAZOLE 40 MG/10 ML VIAL IVP SCH (08:21)
[2017-07-25] MEDS: ALPRAZolam 0.5 MG TAB PO PRN (08:24)
[2017-07-25] MEDS ORDERED: FUROSEMIDE 40 MG TAB PO SCH (09:00)
[2017-07-25] MEDS: IPRATROPIUM-ALBUTEROL 3 ML NEB INHALATION PRN (11:05)
[2017-07-25 11:17] VITALS: PULSE 88
[2017-07-25] MEDS: CALCIUM CARB-VIT D 500MG-200UN 1 EACH TAB PO SCH (11:20)
--- NOTE | 2017-07-25 16:14 | P.DS ---
Providers Date of admission: 07/22/17 17:23 Expected date of discharge: 07/25/17 Attending physician: Tamara Cruz Consults: 07/21/17 10:23 Consult Physician Urgent Consulting Provider: Blaire Telles Consult Reason/Comments: Right upper quadrant abdominal pain Do you want consulting provider notified?: Yes 07/22/17 16:25 Consult Physician Routine Consulting Provider: Roge Prescott Consult Reason/Comments: ICU mgmt, vent mgmt Do you want consulting provider notified?: Already Contacted Primary care physician: Rohith Qiu [facility] Course: 56-year-old female with a past medical history of asthma/COPD, GERD, osteoarthritis, chronic back pain, endometriosis, sleep apnea syndrome, on CPAP , and bilateral carpal tunnel syndrome. The patient presented to the emergency room on July 21 with abdominal pain. Right upper quadrant. She also has some nausea. Chest some diarrhea as well. The pain was 10 out of 10. She went for a cholecystectomy. There is no problems with the surgery but she was very difficult intubation. Anesthesia about an hour to intubate this patient. There were very concerned about airway obstruction and trauma to the upper airway. She came back here after surgery to be placed on the ventilator overnight. I placed her on Decadron 6 mg IV push every 6 hours. Patient was successfully extubated this morning; she is awake alert and oriented responding to questions appropriately 07/24/2017 Patient is seen on [facility] floor; she is awake alert and oriented and is in no acute distress; patient denies any chest pain or shortness of breath and is able to maintain her oxygen saturation over 90% on room air. Patient is able to tolerate her diet well; wants to be discharged home. patient remained stable and WBC was normal. Diet was advanced without complications; she was dced home in a stable condition Procedures: Lap Cholecystectomy Patient Condition at Discharge: Stable Plan - Discharge Summary Discharge Rx Participant: Yes New Discharge Prescriptions: Continue ALPRAZolam [Xanax] 0.5 mg PO BID Citalopram Hydrobromide [CeleXA] 40 mg PO HS Megestrol [Megace] 40 mg PO BID Ranitidine HCl [Zantac] 150 mg PO HS Gabapentin 800 mg PO BID Doxepin HCl [SINEquan] 50 mg PO HS Potassium Chloride [Klor-Con 20] 20 meq PO DAILY Montelukast [Singulair] 10 mg PO HS Furosemide [Lasix] 40 mg PO DAILY Ergocalciferol [Vitamin D2 (DRISDOL)] 50,000 unit PO SA Phentermine HCl 37.5 mg PO QAM Meloxicam 15 mg PO DAILY Calcium Carbonate/Vitamin D3 [Calcium 600-Vit D3 200 Tablet] 1 tab PO DAILY Vitmain B-12 6000mcg 6,000 mcg PO DAILY Discharge Medication List ALPRAZolam [Xanax] 0.5 mg PO BID 06/04/15 [History] Citalopram Hydrobromide [CeleXA] 40 mg PO HS 06/04/15 [History] Megestrol [Megace] 40 mg PO BID 06/04/15 [History] Calcium Carbonate/Vitamin D3 [Calcium 600-Vit D3 200 Tablet] 1 tab PO DAILY 05/09 [History] Doxepin HCl [SINEquan] 50 mg PO HS 07/21/17 [History] Ergocalciferol [Vitamin D2 (DRISDOL)] 50,000 unit PO SA 07/21/17 [History] Furosemide [Lasix] 40 mg PO DAILY 07/21/17 [History] Gabapentin 800 mg PO BID 07/21/17 [History] Meloxicam 15 mg PO DAILY 07/21/17 [History] Montelukast [Singulair] 10 mg PO HS 07/21/17 [History] Phentermine HCl 37.5 mg PO QAM 07/21/17 [History] Potassium Chloride [Klor-Con 20] 20 meq PO DAILY 07/21/17 [History] Ranitidine HCl [Zantac] 150 mg PO HS 07/21/17 [History] Vitmain B-12 6000mcg 6,000 mcg PO DAILY 07/21/17 [History] Follow up Appointment(s)/Referral(s): [facility], [NON-STAFF] - Rohith Pena MD [Primary Care Provider] - 1-2 days Blaire Telles DO [Doctor of Osteopathic Medicine] - 1 Week Activity/Diet/Wound Care/Special Instructions: [facility] - [phone] - will deliver to bedside prior to discharge Discharge/Stand Alone Forms: Work/School Release, Work/Release Restrictions Form, Work/School Release / Restrict Discharge Disposition: HOME SELF-CARE
--- NOTE | 2017-07-27 08:39 | CDI ---
Last Revision, February 2017 Documentation Clarification Form Clinical Validation Review Date: 07/27/17 0834 From: Shaitsa Renteria RN, CCDS Admit Date: 07/22/2017 5:23:00 PM Patient Name: Elsa Corrales Visit Number: [id number] ATTENTION: The Clinical Documentation Specialists (CDI) and [facility] Coding Staff appreciate your assistance in clarifying documentation. Please respond to the clarification below the line at the bottom and electronically sign. The CDI & [facility] Coding staff will review the response and follow-up if needed. Please note: Queries are made part of the Legal Health Record. If you have any questions, please contact the author of this message via ITS. Dr. Jose Chapa Please review your documentation in regards to documentation of Post operative respiratory failure on this cholecystectomy patient. History/Risk Factors: COPD, ADEBAYO w/ CPAP, chronic bronchitis Clinical Indicators: 07/24 Attending Progress notes: "She went for a cholecystectomy. There is no problems with the surgery but she was very difficult intubation. Anesthesia about an hour to intubate this patient. There were very concerned about airway obstruction and trauma to the upper airway. She came back here after surgery to be placed on the ventilator overnight. Vent dependent respiratory failure post surgery - Difficult intubation with possible airway trauma - Patient received IV Decadron every 6 hours for possible airway edema - She is successfully extubated and is being monitored by pulmonary service and ICU." 07/22/17 1650 pt came from OR intubated to ICU 07/23 0756 pt was extubated 07/22 1650 Vital signs: Temp 98.7, HR 86, rr 17, B/P 149/72, spo2 100% on 100% MV 07/24 Lung/Breathing assessment:Respiratory: bilateral: CTA, negative: rales, rhonchi, wheezing Treatment: Breathing tx: Duoneb QID PRN Continuous Pulse ox: per ICU protocol Vent: Pt was maintained on ventilator post operatively for less than 24 hrs O2: room air on admission- vent post-op, extubated to 6L and weaned to roopm air. In your professional opinion, can you please clarify if these findings signify one of the following conditions? Acuity: Standard post operative ventilator management d/t difficult inubation Acute Specificity: Respiratory Failure, further specify (if known): With hypercapnia? With hypoxia? Other Diagnosis, please specify Unable to determine Please continue to document in your progress notes and discharge summary in order to capture severity of illness and risk of mortality. Include clinical findings that support your diagnosis. MTDD
== END 2017-07-25 17:51 | disposition home or self-care (01) | DRG 418 ==
LOC: EC 06:49 → 6PED 10:39 → 4MS4W 11:01 → 6ICU 07-22 15:59 → OBSVTOIN 07-22 17:23 → 3SUR 07-23 16:24
PROVIDERS: ADMIT Internal Medicine; ATTEND Internal Medicine
PROC: 0FT44ZZ Resection of Gallbladder, Percutaneous Endoscopic Approach (ICD-10-PCS; principal; 2017-07-22 07:30)
DX: K81.0 Acute cholecystitis (principal); K82.1 Hydrops of gallbladder; Z68.45 Body mass index [BMI] 70 or greater, adult; E66.01 Morbid (severe) obesity due to excess calories; G47.33 Obstructive sleep apnea (adult) (pediatric); J44.9 Chronic obstructive pulmonary disease, unspecified; K21.9 Gastro-esophageal reflux disease without esophagitis; M17.12 Unilateral primary osteoarthritis, left knee; Z80.3 Family history of malignant neoplasm of breast; Z82.49 Family history of ischemic heart disease and other diseases of the circulatory system; Z83.3 Family history of diabetes mellitus; Z87.440 Personal history of urinary (tract) infections; T88.4XXA Failed or difficult intubation, initial encounter; Z79.899 Other long term (current) drug therapy; Z88.6 Allergy status to analgesic agent
CPT/HCPCS: 36415; 36600; 71045; 76705; 78227; 80048; 80053; 80076; 81001; 82150; 82805; 83036; 83690; 83735; 84100; 85025; 88304; 93005; 94002; 94003; 94640; 96361; 96374; 99285

== ENCOUNTER → 2017-10-04 | Outpatient (CLI) | payer BC ==
--- NOTE | 2017-10-05 10:43 | ECHOF ---
Referral Reason:I27.0 Pulmonary Hypertention MEASUREMENTS -------- HEIGHT: 157.5 cm WEIGHT: 186.4 kg BP: RVIDd: 3.6 cm (< 3.3) IVSd: 1.2 cm (0.6 - 1.1) LVIDd: 4.7 cm (3.9 - 5.3) LVPWd: 1.2 cm (0.6 - 1.1) IVSs: 1.4 cm LVIDs: 2.6 cm LVPWs: 1.4 cm LAESV Index (A-L): 16.92 ml/m MV E Dany: 1.00 m/s MV DecT: 263 ms MV A Dany: 0.98 m/s MV E/A Ratio: 1.02 RAP: 5.00 mmHg RVSP: 39.58 mmHg FINDINGS -------- Resting tachycardia (HR>100bpm). This was a technically difficult study with suboptimal views. The left ventricular size is normal. There is mild concentric left ventricular hypertrophy. Overa ll left ventricular systolic function is normal with, an EF between 55 - 60 %. The right ventricle is mildly enlarged. Normal LA size by volume 22+/-6 ml/m2. The right atrium is normal in size. 3 ml of Lumason was utilized for enhancement of images. There is mild aortic valve sclerosis. Trace amount of aortic regurgitation. There is no evidence of aortic stenosis. The mitral valve leaflets are mildly thickened. There is trace to mild mitral regurgitation. Mild tricuspid regurgitation present. There is mild pulmonary hypertension. The right ventricular systolic pressure, as measured by Doppler, is 39.58mmHg. The pulmonic valve was not well visualized. The aortic root size is normal. IVC Not well visulized. There is no pericardial effusion. CONCLUSIONS -------- 1. Resting tachycardia (HR>100bpm). 2. This was a technically difficult study with suboptimal views. 3. The left ventricular size is normal. 4. There is mild concentric left ventricular hypertrophy. 5. Overall left ventricular systolic function is normal with, an EF between 55 - 60 %. 6. The right ventricle is mildly enlarged. 7. Normal LA size by volume 22+/-6 ml/m2. 8. 3 ml of Lumason was utilized for enhancement of images. 9. There is mild aortic valve sclerosis. 10. Trace amount of aortic regurgitation. 11. The mitral valve leaflets are mildly thickened. 12. There is trace to mild mitral regurgitation. 13. Mild tricuspid regurgitation present. 14. There is mild pulmonary hypertension. 15. The right ventricular systolic pressure, as measured by Doppler, is 39.58mmHg. 16. The pulmonic valve was not well visualized. 17. The aortic root size is normal. 18. IVC Not well visulized. 19. There is no pericardial effusion. [employer]CIAL [employer] TECHNICIAN: Aubrey Quiroz RDCS
== END | disposition home or self-care (01) ==
LOC: RADECHMAIN 15:30
PROVIDERS: ATTEND Internal Medicine
DX: Z53.9 Procedure and treatment not carried out, unspecified reason (principal)
CPT/HCPCS: 93306

== ENCOUNTER → 2018-09-28 | Outpatient (CLI) | payer BC, OTHER ==
--- NOTE | 2018-09-30 14:39 | MM ---
Reason for exam: screening (asymptomatic). Last mammogram was performed 1 year and 3 months ago. History: Patient is postmenopausal and is nulliparous. Family history of breast cancer in maternal grandmother at age 53 and breast cancer in mother at age 81. Benign excisional biopsy of the left breast, 2016. Physical Findings: A clinical breast exam by your physician is recommended on an annual basis and results should be correlated with mammographic findings. MG 3D Screening Mammo W/Cad Bilateral CC and MLO view(s) were taken. Prior study comparison: June 30, 2017, bilateral MG 3d screening mammo w/cad. February 12, 2015, mammogram, performed at [facility]. There are scattered fibroglandular densities. No significant changes when compared with prior studies. ASSESSMENT: Negative, BI-RAD 1 RECOMMENDATION: Routine screening mammogram of both breasts in 1 year.
== END | disposition home or self-care (01) ==
LOC: RADMAMWWP 11:08
PROVIDERS: ATTEND Family Medicine
DX: Z12.31 Encounter for screening mammogram for malignant neoplasm of breast (principal)
CPT/HCPCS: 77063; 77067

== ENCOUNTER → 2019-03-02 | Outpatient (CLI) | payer BC, OTHER ==
[2019-03-02 09:18] VITALS: BP 137/92; PULSE 106; TEMP 98.6; BMI 77.6
--- NOTE | 2019-03-02 09:20 | P.HPBAR ---
Bariatric H&P - History & Physicial H&P Date: 03/02/19 History & Physicial: Visit/CC: Patient initial contact: Initial weight: Initial weight in pounds: Height: 5 ft 2.25 in Initial BMI: Last weight: Current weight: 194.138 kg Current weight in pounds: Current BMI: Gilberts body weight (based on NIH guidelines): Excess body weight loss: The patient is a 58 year-old F who presents for Bariatric Assessment. She comes in for the first time. She reports being on Megace for endometrial cancer. She had a D&C for endometrial deposits. She is on Meloxicam for joint pain. She is looking into the gastric bypass to control her reflux. Today is her highest weight. She has tried Weight watches, Adipex, Jouidia, TOPS for weight loss. Most weight loss most Weight watchers, she lost 100+ pounds and regained weight on depression from the passing of her . She sees Dr. Denny. No current heart doctor. No recent stress test. She had her gallbladder removed in July 2017. She reports lower leg swelling and lower back pain and needs a left knee replacement. She has severe sleep apnea. She takes anti-seizure. She got pulmonary clearance. She was in the ICU for 4 days for troubles with intubation. MS: 1+ edema. ASSESSMENT: 1. Super morbid obesity PLAN: 1. Labs 2. Past Medical History Past Medical History: Asthma, COPD, GERD/Reflux, Osteoarthritis (OA) Additional Past Medical History / Comment(s): Chronic bronchitis, DDD, mid-lower back pain, DJD, arthritis L knee, endometriosis, endometrial pre-cancer, L breast mass-benign, UTIs, ADEBAYO uses Cpap, anemia, bilateral carpal tunnel syndrome. History of Any Multi-Drug Resistant Organisms: None Reported Past Surgical History: Breast Surgery, Joint Replacement, Tonsillectomy Additional Past Surgical History / Comment(s): BRONCHOSCOPY, COLONOSCOPY, EXPLORATORY LAP FOR ECTOPIC -RUPTURED FALLOPIAN TUBE WITH REMOVAL, D & C'S, RIGHT TOTAL KNEE (2013), L BREAST BX-BENIGN. Past Anesthesia/Blood Transfusion Reactions: Motion Sickness, Postoperative Nausea & Vomiting (PONV) Smoking Status: Never smoker - Past Family History Mother Family Medical History: Cancer Additional Family Medical History / Comment(s): MOTHER - FROM BREAST C ANCER AT THE AGE OF 83 YRS. GRANDMOTHER - BREAST CANCER Father Family Medical History: Congestive Heart Failure (CHF), Diabetes Mellitus Additional Family Medical History / Comment(s): FATHER FROM CHF AT THE AGE OF 78YRS. Bariatric Checklist Checklist: Plan: Checklist: EGD: 1. Hiatal hernia: 2. H. Pylori: HgbA1c: Vitamin D: Smoking: Never smoker Primary care physician referral: Psychiatry clearance: Cardiology clearance: Sleep study: Diet journal: VTE risk score: VTE risk level: Rehab needs at discharge:
[2019-03-02 10:47] LABS: HCT 41.2 % (34.0-46.0); HGB 13.3 gm/dL (11.4-16.0); MCH 30.3 pg (25.0-35.0); MCHC 32.2 g/dL (31.0-37.0); MCV 94.1 fL (80.0-100.0); Mean Platelet Volume 8.3; Platelet Count 293 k/uL (150-450); RBC 4.37 m/uL (3.80-5.40); WBC 9.6 k/uL (3.8-10.6)
[2019-03-02 11:09] LABS: INR 0.9 (<1.2); Partial Thromboplastin Time 25.7 sec (22.0-30.0); Prothrombin Time 9.8 sec (9.0-12.0)
[2019-03-02 15:39] LABS: % Iron Saturation 20.94 (12.00-45.00); African American GFR (CKD) 81.1 (60.0-200.0); Albumin 4.2 g/dL (3.80-4.90); Albumin/Globulin Ratio 1.91 (1.60-3.17); Anion Gap 9.4 mmol/L (4.00-12.00); BUN/Creat Ratio 22.22 Ratio (12.00-20.00); Carbon Dioxide 27.6 mmol/L (21.6-31.8); Chol/HDL Ratio 4.03; Globulin 2.2 g/dL (1.6-3.3); LDL Cholesterol,Calculated 59.8 mg/dL (0.0-131.0); Magnesium 1.8 mg/dL (1.5-2.4); Phosphorus 3.6 mg/dL (2.4-5.1); Potassium 4.1 mmol/L (3.5-5.5); Total Bilirubin 1.2 mg/dL (0.3-1.2); Total Protein 6.4 g/dL (6.2-8.2); VLDL Calculation 37.2 mg/dL (5.00-40.00)
[2019-03-02 15:49] LABS: Ferritin 123.2 ng/mL (10.0-291.0)
[2019-03-02 15:51] LABS: Folate, Serum 10.3 ng/mL
[2019-03-02 16:45] LABS: Hemoglobin A1C 6.1 % (4.0-6.0)
[2019-03-03 12:11] LABS: Zinc, Serum 52 ug/dL (60-130)
[2019-03-06 07:01] LABS: Vitamin A 39 ug/dL (38-106)
[2019-03-06 07:18] LABS: Vit B1(Thiamine) 91 ug/L (38-122)
[2019-03-06 17:22] LABS: Selenium 155 mcg/L (63-160)
== END | disposition home or self-care (01) ==
LOC: BARWHC3 08:27
PROVIDERS: ATTEND Surgery Plastic and Reconstructive Surgery
DX: E66.01 Morbid (severe) obesity due to excess calories (principal); E21.1 Secondary hyperparathyroidism, not elsewhere classified; D50.9 Iron deficiency anemia, unspecified; E44.0 Moderate protein-calorie malnutrition; E55.9 Vitamin D deficiency, unspecified; K74.1 Hepatic sclerosis; N19 Unspecified kidney failure; K50.90 Crohn's disease, unspecified, without complications; E89.1 Postprocedural hypoinsulinemia; G47.30 Sleep apnea, unspecified; M79.89 Other specified soft tissue disorders; F32.9 Major depressive disorder, single episode, unspecified; Z68.45 Body mass index [BMI] 70 or greater, adult
CPT/HCPCS: 80053; 80061; 82306; 82525; 82607; 82728; 82746; 83036; 83540; 83550; 83735; 83970; 84100; 84134; 84255; 84425; 84443; 84590; 84630; 85027; 85610; 85730; 93005; 99211

== ENCOUNTER → 2019-03-30 | Outpatient (CLI) | payer BC, OTHER ==
--- NOTE | 2019-03-31 10:42 | USB ---
Reason for exam: clinical finding. History: Patient is postmenopausal and is nulliparous. Family history of breast cancer in maternal grandmother at age 53 and breast cancer in mother at age 81. Benign excisional biopsy of the left breast, 2016. Physical Findings: Breast exam performed by Dr. Mars. US Breast LT Left complete breast ultrasound includes all four quadrants, the retroareolar region and axilla. Finding demonstrates no cystic or solid lesion seen. No suspicious sonographic finding. These results were verbally communicated with the patient and result sheet given to the patient on 03/30/19. ASSESSMENT: Negative, BI-RAD 1 RECOMMENDATION: Return to routine screening mammogram schedule for both breasts. Back on schedule for September 2019. Manage patient on a clinical basis.
== END ==
LOC: RADUSWWP 12:10
PROVIDERS: ATTEND Surgery
DX: N64.4 Mastodynia (principal)

== ENCOUNTER → 2019-03-30 | Outpatient (CLI) | payer BC, OTHER ==
[2019-03-30 11:27] VITALS: BP 159/90; PULSE 85; RESP 18; TEMP 98.2
--- NOTE | 2019-03-30 11:57 | P.GSHP ---
History of Present Illness H&P Date: 03/30/19 Chief Complaint: lump left breast Elsa is a 58 -year-old white female seen in consultation for Dr. Pena secondary to a mass felt in her left breast. [place] [id number]. This was negative BIRADS 1. She has been able to feel nodularity in her left breast near the biopsy site for approximately 9 months. It has increased in size and is tender at this time. The patient does not have any other lumps or masses for which she is concerned. She is not complaining of any nipple discharge or skin changes. She is not complaining of any trauma or infection of the breast. Of significance is the fact that she underwent a left breast biopsy in May 2015 and the findings were benign lipoma with focal fat necrosis. The patient has endometrial pre-cancer. She was taking megace. She was recently taken off of this. Dr. Morgan. Family history: Maternal Grandmother: Left mastectomy, breast cancer Mother: Stage IV right breast cancer secondary to this at 82 Hormonal History: menarche: 9 menopause: endometrial pre-cancer, hyperdysplasia; only stopped periods with megace BCP: 5 years hormones: megace 1 1/2 years Surgical History: ectopic right knee replacement left breast biopsy Medical History: asthma morbid obesity arthritis GERD Social history: smoke: none alcohol: none drugs: none - Constitutional Constitutional: Denies chills, Denies fever - EENT Eyes: denies blurred vision, denies pain Ears: deny: decreased hearing, tinnitus Ears, nose, mouth and throat: Denies headache, Denies sore throat - Breasts Breasts: bilateral: as per HPI - Cardiovascular Cardiovascular: Reports shortness of breath, Denies chest pain - Respiratory Comment: asthma - Gastrointestinal Gastrointestinal: Denies abdominal pain, Denies diarrhea, Denies nausea, Denies vomiting - Genitourinary (Female) Genitourinary: Reports stress incontinence - Menstruation Comment: abnormal vaginal bleeding - Musculoskeletal Comment: arthritis - Integumentary Integumentary: Denies pruritus, Denies rash - Neurological Neurological: Denies numbness, Denies weakness - Psychiatric Psychiatric: Denies anxiety, Denies depression - Endocrine Endocrine: Reports fatigue, Denies weight change - Hematologic/Lymphatic Comment: none - Allergic/Immunologic Allergic/Immunologic: Reports as per HPI Past Medical History Past Medical History: Asthma, COPD, GERD/Reflux, Osteoarthritis (OA) Additional Past Medical History / Comment(s): Chronic bronchitis, DDD, mid-lower back pain, DJD, arthritis L knee, endometriosis, endometrial pre-cancer, L breast mass-benign, UTIs, ADEBAYO uses Cpap, anemia, bilateral carpal tunnel syndrome. History of Any Multi-Drug Resistant Organisms: None Reported Past Surgical History: Breast Surgery, Joint Replacement, Tonsillectomy Additional Past Surgical History / Comment(s): BRONCHOSCOPY, COLONOSCOPY, EXPLORATORY LAP FOR ECTOPIC -RUPTURED FALLOPIAN TUBE WITH REMOVAL, D & C'S, RIGHT TOTAL KNEE (2013), L BREAST BX-BENIGN. Past Anesthesia/Blood Transfusion Reactions: Motion Sickness, Postoperative Nausea & Vomiting (PONV) Past Psychological History: Anxiety, Depression Additional Psychological History / Comment(s): Pt states she has had anxiety and depression since her spouse less than a year ago. She has been started on meds to help her with this and they have. She resides alone. She uses a wheeled walker to ambulate. She drives. Smoking Status: Never smoker Past Alcohol Use History: None Reported Past Drug Use History: None Reported - Past Family History Mother Family Medical History: Cancer Additional Family Medical History / Comment(s): MOTHER - FROM BREAST CANCER AT THE AGE OF 83 YRS. GRANDMOTHER - BREAST CANCER Father Family Medical History: Congestive Heart Failure (CHF), Diabetes Mellitus Additional Family Medical History / Comment(s): FATHER FROM CHF AT THE AGE OF 78YRS. Medications and Allergies Home Medications Medication Instructions Recorded Confirmed Type Citalopram Hydrobromide [CeleXA] 40 mg PO HS 06/04/15 03/30/19 History Calcium Carbonate/Vitamin D3 1 tab PO DAILY 07/21/17 03/30/19 History [Calcium 600-Vit D3 200 Tablet] Doxepin HCl [SINEquan] 50 mg PO HS 07/21/17 03/30/19 History Furosemide [Lasix] 40 mg PO DAILY 07/21/17 03/30/19 History Gabapentin 800 mg PO BID 07/21/17 03/30/19 History Meloxicam 15 mg PO DAILY 07/21/17 03/30/19 History Montelukast [Singulair] 10 mg PO HS 07/21/17 03/30/19 History Potassium Chloride [Klor-Con 20] 20 meq PO DAILY 07/21/17 03/30/19 History Ranitidine HCl [Zantac] 150 mg PO HS 07/21/17 03/30/19 History Ergocalciferol [Vitamin D2 50,000 unit PO WEEKLY 03/02/19 03/30/19 History (DRISDOL)] Famotidine [Pepcid] 20 mg PO DAILY 03/02/19 03/30/19 History Mirabegron [Myrbetriq] 50 mg PO DAILY 03/02/19 03/30/19 History Multivitamin [Multivitamins Adult 1 tab PO DAILY 03/02/19 03/30/19 History Gummies] Albuterol Sulfate [Proair Hfa] 1 - 2 puff INHALATION Q6HR PRN 03/30/19 03/30/19 History Budesonide/Formoterol Fumarate 2 puff INHALATION BID 03/30/19 03/30/19 History [Symbicort 160-4.5 Mcg Inhaler] Ergocalciferol [Vitamin D2] 50,000 unit PO Q7D 03/30/19 03/30/19 History Ipratropium Delta [Atrovent Hfa] 2 puff INHALATION QID 03/30/19 03/30/19 History Allergies Allergy/AdvReac Type Severity Reaction Status Date / Time ibuprofen [From Motrin] Allergy Unknown Nausea & Verified 03/30/19 11:14 Vomiting aspirin AdvReac Unknown Nausea & Verified 03/30/19 11:14 Vomiting NSAIDS (Non-Steroidal AdvReac Unknown Nausea & Verified 03/30/19 11:14 Anti-Inflamma Vomiting Surgical - Exam Vital Signs Temp Pulse Resp BP Pulse Ox 98.2 F 85 18 159/90 94 L 03/30/19 11:23 03/30/19 11:23 03/30/19 11:23 03/30/19 11:23 03/30/19 11:23 BMI 76.8 - General obese - Eyes conjectiva pink normal ocular movement - ENT no hearing loss, no congestion - Neck no masses, no lymphadectomy, no venous distension - Respiratory normal expansion, normal respiratory effort, clear to auscultation - Cardiovascular Rhythm: regular Heart Sounds: normal: S1, S2 - Abdomen Abdomen: soft, non tender, bowel sounds, no guarding, no rigid, no rebound - Integumentary normal turgor - Neurologic no disoriented, no combative - Musculoskeletal wheel chair dependant - Psychiatric oriented to time, oriented to person, oriented to place, speech is normal, memory intact breast exam: bra 52DDD Breasts: Fibrocystic changes, no dominant masses or nodules of concern Right axilla: No adenopathy of concern Left breast: Well-healed scar from prior biopsy, fibrocystic changes, tenderness at the old scar site with postop changes but no discrete mass identified Left axilla: No adenopathy of concern Results Bilateral mammogram results reviewed from September 2018 Assessment and Plan Assessment: Impression: 1. Tender spot left breast near her prior biopsy scar 2. Postop changes left breast near biopsy scar 3. Fibrocystic breast changes 4. Macromastia 52 DDD 5. morbid obesity 6. asthma 7. arthritis 8. GERD Plan: 1. Ultrasound left breast near area for patient has tenderness, depending on results of this will proceed with core biopsy 2. Medical management of asthma 3. The patient is presently scheduled for bariatric surgery, she has a BMI of 76.8. At this time there is nothing specific in her breast which would warrant delaying the bariatric surgery. The patient will have an ultrasound of the ultrasound does not show any abnormality of concern we will proceed with the bariatric surgery and be addressed the breast discomfort and postoperative surgical changes following this. The patient does have a strong family history of breast cancer. She is concerned that she feels some changes in her breasts. The patient's most recent mammogram which was in September 2018 did not show anything of concern. We will obtain ultrasound of this time. If this does not show anything of concern she will proceed with her bariatric surgery as clinically there is nothing discrete which would warrant biopsy of the left breast at this time. CC: DR. Pena Encounter: 30 minutes, > 50% of time patient in planning and counseling
== END | disposition home or self-care (01) ==
LOC: WWCWWP 10:37
PROVIDERS: ATTEND Surgery
DX: Z53.9 Procedure and treatment not carried out, unspecified reason (principal)

== ENCOUNTER → 2019-04-19 | Outpatient (CLI) | payer BC, OTHER ==
[2019-04-19 15:10] VITALS: BP 131/86; PULSE 95; RESP 16; TEMP 98.4; BMI 78.3
--- NOTE | 2019-04-19 15:31 | P.PN ---
Subjective Progress Note Date: 04/19/19 DATE OF SERVICE: 04/19/2019 CHIEF COMPLAINT: Morbid obesity HISTORY OF PRESENT ILLNESS: Elsa Corrales is a 58-year-old female who comes in looking into the gastric bypass to control her reflux. She reports severe gas pain. She has troubles with passing gas. She reports gastroesophageal reflux disease. She has not had a colonoscopy. She completed an upper endoscopy. She is completing medical supervised weight loss. At height of 5 feet 2.25 inches, her ideal body weight is 135 pounds. Highest weight 427 pounds, BMI 77.7. Her weight has been unchanged in 1 month. She is 292 pounds overweight. PAST MEDICAL HISTORY: 1. Morbid obesity due to excess calories 2. Body mass index of 77.7, initial 3. Asthma 4. Neuropathy 5. Hypothyroidism 6. Hypertensive heart disease. 7. Osteoarthritis of the knees. 8. Osteoarthritis of the lower back. 9. Bilateral lower extremity swelling 10. Gastroesophageal reflux disease 11. Endometrial cancer 12. Depressive disorder 13. Obstructive sleep apnea 14. Seizure PAST SURGICAL HISTORY: 1. D&C 2. Cholecystectomy, 2018 3. Colonoscopy 4. Bronchoscopy 5. Right knee arthroplasty 6. Left breast biopsy 7. Tonsillectomy HOME MEDICATIONS: Home Medications Medication Instructions Recorded Confirmed Citalopram Hydrobromide [CeleXA] 40 mg PO HS 06/04/15 04/19/19 Doxepin HCl [SINEquan] 50 mg PO HS 07/21/17 04/19/19 Furosemide [Lasix] 40 mg PO DAILY 07/21/17 04/19/19 Gabapentin 800 mg PO BID 07/21/17 04/19/19 Meloxicam 15 mg PO DAILY 07/21/17 04/19/19 Montelukast [Singulair] 10 mg PO HS 07/21/17 04/19/19 Potassium Chloride [Klor-Con 20] 20 meq PO DAILY 07/21/17 04/19/19 Ranitidine HCl [Zantac] 150 mg PO HS 07/21/17 04/19/19 Ergocalciferol [Vitamin D2 50,000 unit PO SA 03/02/19 04/19/19 (DRISDOL)] Famotidine [Pepcid] 20 mg PO DAILY 03/02/19 04/19/19 Mirabegron [Myrbetriq] 50 mg PO DAILY 03/02/19 04/19/19 Albuterol Sulfate [Proair Hfa] 1 - 2 puff INHALATION Q6HR PRN 03/30/19 04/19/19 Budesonide/Formoterol Fumarate 2 puff INHALATION BID 03/30/19 04/19/19 [Symbicort 160-4.5 Mcg Inhaler] Ipratropium-Albuterol Nebulize 3 ml INHALATION QID PRN 03/30/19 04/19/19 [Duoneb 0.5 mg-3 mg/3 ml Soln] Calcium Carbonate/Vitamin D3 600 mg PO BID 04/19/19 04/19/19 [Caltrate 600 Plus D3 Tablet] Multivitamin with Iron 1 tab PO BID 04/19/19 04/19/19 [Multivitamins with Iron] Previous Rx's Medication Instructions Recorded Levothyroxine Sodium [Synthroid] 50 mcg PO DAILY #30 tab 04/19/19 ALLERGIES: Allergies Allergy/AdvReac Type Severity Reaction Status Date / Time aspirin AdvReac Unknown Nausea & Verified 04/19/19 15:14 Vomiting ibuprofen [From Motrin] AdvReac Unknown Nausea & Verified 04/19/19 15:14 Vomiting NSAIDS (Non-Steroidal AdvReac Unknown Nausea & Verified 04/19/19 15:14 Anti-Inflamma Vomiting SOCIAL HISTORY: No past tobacco use. FAMILY HISTORY: No family history of ulcerative colitis disease or Crohn's disease. Family history of morbid obesity. No lupus in the family. No reports of stomach or esophageal cancer. REVIEW OF ORGAN SYSTEMS: CONSTITUTIONAL: At height of 5 feet 2.25 inches, her ideal body weight is 135 pounds. She comes in 427 pounds. Her body mass index is 77.7. She is 292 pounds overweight. HEENT: Denies any active troubles with vision or hearing. No troubles with swallowing. ENDOCRINE: No diabetes. Has hypothyroidism. CARDIOVASCULAR: No past reports of palpitations or heart attacks or chest pain. RESPIRATORY: Has daytime somnolence. Has asthma. GASTROINTESTINAL: Denies any bright red blood per rectum. No diarrhea. No constipation. MUSCULOSKELETAL: Has lower back pain and joint pain. Has osteoarthritis of the knees. History of bilateral lower extremity edema. NEURO: Has headaches. Has seizure disorders. PSYCH: Has depression. No suicidal ideation. RHEUMATOLOGIC: No lupus. No rheumatoid arthritis. HEMATOLOGIC: Denies any abnormal bleeding or bruising. No personal history of DVTs. SKIN: No rash. No skin cancer. PHYSICAL EXAM: VITAL SIGNS: Height 5 foot 2.25 inches, weight 427 pounds. BMI 77.7 Vital Signs Temp 98.4 F 04/19/19 15:07 Pulse 95 04/19/19 15:07 Resp 16 04/19/19 15:07 BP 131/86 04/19/19 15:07 Pulse Ox GENERAL: Well-developed in no acute distress. HEENT: No scleral icterus. Extraocular movements grossly intact. Hears conversational speech. No nasal drainage. NECK: Supple without lymphadenopathy. CHEST: Nonlabored respirations with equal bilateral excursions. CARDIOVASCULAR: Tachycardic. Distal 2+ pulses. ABDOMEN: Obese, soft, nontender, nondistended. MUSCULOSKELETAL: No clubbing, cyanosis. NEURO: No focal or lateralizing signs. Cranial nerves 2 through 12 grossly within normal limits. PSYCH: Appropriate affect. Alert and oriented to person, place and time. SKIN: Good skin turgor. Well perfused. LABS: Hgb A1c 6.1%, Triglycerides elevated, TSH is elevated, PTH elevated, Zinc is low EKG: [facility] EKG MEDICAL REPORT: EGD FINDINGS: Squamocolumnar junction 40 cm from the incisors. Diaphragmatic hiatus at 40 cm. Hill grade 1 lower esophageal valve. LA grade A erosive esophagitis. No active duodenitis. Chronic gastritis Final Pathologic Diagnosis GASTRIC ANTRUM, BIOPSY: Mild chronic gastritis. Helicobacter organisms are not identified on routine H+E stained sections. ASSESSMENT: 1. Morbid obesity due to excess calories 2. Body mass index of 77.7 3. Asthma 4. Neuropathy 5. Hypothyroidism 6. Hypertensive heart disease. 7. Osteoarthritis of the knees. 8. Osteoarthritis of the lower back. 9. Bilateral lower extremity swelling 10. Gastroesophageal reflux disease 11. Endometrial cancer 12. Depressive disorder 13. Obstructive sleep apnea 14. Seizure 15. Hypertriglyceridemia 16. Chronic gastritis 17. Zinc deficiency 18. Secondary hyperparathyroidism 19. Screening for malignant colon neoplasm PLAN: 1. She reports gastroesophageal reflux disease and is looking into the gastric bypass. 2. Recommend cardiac clearance for borderline EKG 3. Recommend start Synthroid for TSH elevation consistent with hypothyroidism. 4. Recommend Cologaurd for colonoscopy screening. Objective - Vital Signs Vital signs: Vital Signs Temp 98.4 F 04/19/19 15:07 Pulse 95 04/19/19 15:07 Resp 16 04/19/19 15:07 BP 131/86 04/19/19 15:07 Pulse Ox Intake & Output 04/18/19 04/19/19 04/19/19 18:59 06:59 18:59 Weight 194.308 kg
== END | disposition home or self-care (01) ==
LOC: BARWHC3 13:47
PROVIDERS: ATTEND Surgery Plastic and Reconstructive Surgery
DX: E66.01 Morbid (severe) obesity due to excess calories (principal); Z68.45 Body mass index [BMI] 70 or greater, adult; J45.909 Unspecified asthma, uncomplicated; G62.9 Polyneuropathy, unspecified; E03.9 Hypothyroidism, unspecified; I11.9 Hypertensive heart disease without heart failure; M17.9 Osteoarthritis of knee, unspecified; M47.816 Spondylosis without myelopathy or radiculopathy, lumbar region; K21.9 Gastro-esophageal reflux disease without esophagitis; R22.43 Localized swelling, mass and lump, lower limb, bilateral; K29.50 Unspecified chronic gastritis without bleeding; C54.1 Malignant neoplasm of endometrium; F32.9 Major depressive disorder, single episode, unspecified; G47.33 Obstructive sleep apnea (adult) (pediatric); R56.9 Unspecified convulsions; E78.1 Pure hyperglyceridemia; E60 Dietary zinc deficiency; N25.81 Secondary hyperparathyroidism of renal origin; R14.1 Gas pain; Z12.11 Encounter for screening for malignant neoplasm of colon; Z90.49 Acquired absence of other specified parts of digestive tract; Z79.84 Long term (current) use of oral hypoglycemic drugs; Z88.6 Allergy status to analgesic agent
CPT/HCPCS: 99211

== ENCOUNTER → 2019-08-16 | Outpatient (CLI) | payer BC, OTHER ==
[2019-08-16 14:26] VITALS: BP 166/84; PULSE 150; RESP 20; TEMP 98.3; BMI 80.4
--- NOTE | 2019-08-16 14:44 | P.PN ---
Subjective Progress Note Date: 08/16/19 DATE OF SERVICE: 08/16/2019 CHIEF COMPLAINT: Morbid obesity HISTORY OF PRESENT ILLNESS: Elsa Corrales is a 59-year-old female who comes in after developing pneumonia and trouble breathing. She was being seen by her PCP for treatment. Since her last visit, 4 months ago. She has gained more weight. She comes in with her family member at bedside. No present abdominal pain. Her CPAP machine is not working. Her O2 sat is low. She is also looking into other bariatric options outside of the gastric bypass. She has not had a colonoscopy. She also reports new bowel changes and left lower quadrant abdominal pain. At height of 5 feet 2.25 inches, her ideal body weight is 135 pounds. She has gained 12 pounds in 4 months. Highest weight 427 pounds, BMI 77.7 now up to 439 pounds, BMI 80.5. She is 304 pounds overweight. PAST MEDICAL HISTORY: 1. Morbid obesity due to excess calories 2. Body mass index of 77.7, initial 3. Asthma 4. Neuropathy 5. Hypothyroidism 6. Hypertensive heart disease. 7. Osteoarthritis of the knees. 8. Osteoarthritis of the lower back. 9. Bilateral lower extremity swelling 10. Gastroesophageal reflux disease 11. Endometrial cancer 12. Depressive disorder 13. Obstructive sleep apnea 14. Seizure PAST SURGICAL HISTORY: 1. D&C 2. Cholecystectomy, 2018 3. Colonoscopy 4. Bronchoscopy 5. Right knee arthroplasty 6. Left breast biopsy 7. Tonsillectomy HOME MEDICATIONS: Home Medications Medication Instructions Recorded Confirmed Citalopram Hydrobromide [CeleXA] 40 mg PO HS 06/04/15 04/19/19 Doxepin HCl [SINEquan] 50 mg PO HS 07/21/17 04/19/19 Furosemide [Lasix] 40 mg PO DAILY 07/21/17 04/19/19 Gabapentin 800 mg PO BID 07/21/17 04/19/19 Meloxicam 15 mg PO DAILY 07/21/17 04/19/19 Montelukast [Singulair] 10 mg PO HS 07/21/17 04/19/19 Potassium Chloride [Klor-Con 20] 20 meq PO DAILY 07/21/17 04/19/19 Ranitidine HCl [Zantac] 150 mg PO HS 07/21/17 04/19/19 Ergocalciferol [Vitamin D2 50,000 unit PO SA 03/02/19 04/19/19 (DRISDOL)] Famotidine [Pepcid] 20 mg PO DAILY 03/02/19 04/19/19 Mirabegron [Myrbetriq] 50 mg PO DAILY 03/02/19 04/19/19 Albuterol Sulfate [Proair Hfa] 1 - 2 puff INHALATION Q6HR PRN 03/30/19 04/19/19 Budesonide/Formoterol Fumarate 2 puff INHALATION BID 03/30/19 04/19/19 [Symbicort 160-4.5 Mcg Inhaler] Ipratropium-Albuterol Nebulize 3 ml INHALATION QID PRN 03/30/19 04/19/19 [Duoneb 0.5 mg-3 mg/3 ml Soln] Calcium Carbonate/Vitamin D3 600 mg PO BID 04/19/19 04/19/19 [Caltrate 600 Plus D3 Tablet] Multivitamin with Iron 1 tab PO BID 04/19/19 04/19/19 [Multivitamins with Iron] Previous Rx's Medication Instructions Recorded Levothyroxine Sodium [Synthroid] 50 mcg PO DAILY #30 tab 04/19/19 ALLERGIES: Allergies Allergy/AdvReac Type Severity Reaction Status Date / Time aspirin AdvReac Unknown Nausea & Verified 04/19/19 15:14 Vomiting ibuprofen [From Motrin] AdvReac Unknown Nausea & Verified 04/19/19 15:14 Vomiting NSAIDS (Non-Steroidal AdvReac Unknown Nausea & Verified 04/19/19 15:14 Anti-Inflamma Vomiting SOCIAL HISTORY: No past tobacco use. FAMILY HISTORY: No family history of ulcerative colitis disease or Crohn's disease. Family history of morbid obesity. No lupus in the family. No reports of stomach or esophageal cancer. REVIEW OF ORGAN SYSTEMS: CONSTITUTIONAL: At height of 5 feet 2.25 inches, her ideal body weight is 135 pounds. Highest weight 427 pounds, BMI 77.7 now up to 439 pounds, BMI 80.5. She is 304 pounds overweight. HEENT: Denies any active troubles with vision or hearing. No troubles with swallowing. ENDOCRINE: No diabetes. Has hypothyroidism. CARDIOVASCULAR: No past reports of palpitations or heart attacks or chest pain. RESPIRATORY: Has daytime somnolence. Has asthma. Has troubles breathing. GASTROINTESTINAL: Denies any bright red blood per rectum. Has change in bowel habits. MUSCULOSKELETAL: Has lower back pain and joint pain. Has osteoarthritis of the knees. History of bilateral lower extremity edema. NEURO: Has headaches. Has seizure disorders. PSYCH: Has depression. No suicidal ideation. RHEUMATOLOGIC: No lupus. No rheumatoid arthritis. HEMATOLOGIC: Denies any abnormal bleeding or bruising. No personal history of DVTs. SKIN: No rash. No skin cancer. PHYSICAL EXAM: VITAL SIGNS: Height 5 foot 2.25 inches, weight 439 pounds. BMI 80.5 Vital Signs Temp 98.3 F 08/16/19 14:22 Pulse 150 H 08/16/19 14:22 Resp 20 08/16/19 14:22 BP 166/84 08/16/19 14:22 Pulse Ox Vital signs on repeat: 151/89, 97, 93% oxgyen saturation GENERAL: Well-developed in no acute distress. HEENT: No scleral icterus. Extraocular movements grossly intact. Hears conversational speech. No nasal drainage. NECK: Supple without lymphadenopathy. CHEST: Nonlabored respirations with equal bilateral excursions. CARDIOVASCULAR: Tachycardic. Distal 2+ pulses. ABDOMEN: Obese, soft, nontender, nondistended. MUSCULOSKELETAL: No clubbing, cyanosis. NEURO: No focal or lateralizing signs. Cranial nerves 2 through 12 grossly within normal limits. PSYCH: Appropriate affect. Alert and oriented to person, place and time. SKIN: Good skin turgor. Well perfused. ASSESSMENT: 1. Morbid obesity due to excess calories 2. Body mass index of 77.7, now 80.5 3. Asthma 4. Neuropathy 5. Hypothyroidism 6. Hypertensive heart disease. 7. Osteoarthritis of the knees. 8. Osteoarthritis of the lower back. 9. Bilateral lower extremity swelling 10. Gastroesophageal reflux disease 11. Endometrial cancer 12. Depressive disorder 13. Obstructive sleep apnea 14. Seizure 15. Hypertriglyceridemia 16. Chronic gastritis 17. Zinc deficiency 18. Secondary hyperparathyroidism 19. Screening for malignant colon neoplasm 20. Pneumonia PLAN: 1. Recommend pulmonary evaluation for new dyspnea on exertion including CPAP check and management. 2. With the severity of her obesity, alternative of sleeve gastrectomy was described. 3. Also, recommend sleeve gastrectomy over gastric bypass. 4. Recommend colonoscopy for change in bowel habits for which she is high risk. 5. Recommend CT of the abdomen and pelvis for divertiverticulitis. Objective - Vital Signs Vital signs: Vital Signs Temp 98.3 F 08/16/19 14:22 Pulse 150 H 08/16/19 14:22 Resp 20 08/16/19 14:22 BP 166/84 08/16/19 14:22 Pulse Ox Intake & Output 08/15/19 08/16/19 08/16/19 18:59 06:59 18:59 Weight 199.626 kg - Labs CBC & Chem 7: 08/16/19 15:05 08/16/19 15:05
[2019-08-16 15:41] LABS: HGB 13.5 gm/dL (11.4-16.0); MCH 31.2 pg (25.0-35.0); MCHC 32.2 g/dL (31.0-37.0); MCV 96.9 fL (80.0-100.0); Mean Platelet Volume 8.3; Platelet Count 315 k/uL (150-450); RBC 4.34 m/uL (3.80-5.40); RDW 13.3 % (11.5-15.5); WBC 12.4 k/uL (3.8-10.6)
[2019-08-16 15:53] LABS: INR 0.9 (<1.2); Partial Thromboplastin Time 25.6 sec (22.0-30.0); Prothrombin Time 9.9 sec (9.0-12.0)
[2019-08-16 23:05] LABS: % Iron Saturation 27.96 (12.00-45.00); ALT 19 U/L (8-44); AST 25 U/L (13-35); African American GFR (CKD) 80.5 (60.0-200.0); Albumin/Globulin Ratio 1.55 (1.60-3.17); Alkaline Phosphatase 67 U/L (41-126); BUN/Creat Ratio 23.33 Ratio (12.00-20.00); Calcium 10.1 mg/dL (8.7-10.3); Carbon Dioxide 32.2 mmol/L (21.6-31.8); Chloride 103 mmol/L (96-109); Chol/HDL Ratio 4.14; Cholesterol 153 mg/dL (0-200); Globulin 2.9 g/dL (1.6-3.3); Glucose 114 mg/dL (70-110); Iron 92 ug/dL (50-170); LDL Cholesterol,Calculated 84.8 mg/dL (0.0-131.0); Magnesium 1.9 mg/dL (1.5-2.4); Non-African American GFR(CKD) 69.5 (60.0-200.0); Phosphorus 3.4 mg/dL (2.4-5.1); Potassium 4.2 mmol/L (3.5-5.5); Sodium 145 mmol/L (135-145); Total Bilirubin 1.6 mg/dL (0.3-1.2); Total Iron Binding Capacity 329 ug/dL (228-460); Total Protein 7.4 g/dL (6.2-8.2)
[2019-08-16 23:12] LABS: Hemoglobin A1C 6.3 % (4.0-6.0)
[2019-08-16 23:14] LABS: Ferritin 188.6 ng/mL (10.0-291.0)
[2019-08-16 23:54] LABS: Folate, Serum >24.0 ng/mL
[2019-08-17 14:51] LABS: Zinc, Serum 65 ug/dL (60-130)
[2019-08-18 07:01] LABS: Vit B1(Thiamine) 102 ug/L (38-122)
[2019-08-18 10:41] LABS: Vitamin A 48 ug/dL (38-106)
[2019-08-19 23:27] LABS: Selenium 86 mcg/L (63-160)
== END | disposition home or self-care (01) ==
LOC: BARWHC3 13:44
PROVIDERS: ATTEND Surgery Plastic and Reconstructive Surgery
DX: E66.01 Morbid (severe) obesity due to excess calories (principal); J45.909 Unspecified asthma, uncomplicated; G62.9 Polyneuropathy, unspecified; E03.9 Hypothyroidism, unspecified; I11.9 Hypertensive heart disease without heart failure; M17.0 Bilateral primary osteoarthritis of knee; M79.89 Other specified soft tissue disorders; K21.9 Gastro-esophageal reflux disease without esophagitis; C54.1 Malignant neoplasm of endometrium; G47.33 Obstructive sleep apnea (adult) (pediatric); R56.9 Unspecified convulsions; E78.1 Pure hyperglyceridemia; K29.50 Unspecified chronic gastritis without bleeding; E60 Dietary zinc deficiency; E21.3 Hyperparathyroidism, unspecified; Z12.11 Encounter for screening for malignant neoplasm of colon; J18.9 Pneumonia, unspecified organism; Z68.45 Body mass index [BMI] 70 or greater, adult; Z83.49 Family history of other endocrine, nutritional and metabolic diseases; Z79.899 Other long term (current) drug therapy; Z79.1 Long term (current) use of non-steroidal anti-inflammatories (NSAID); Z79.51 Long term (current) use of inhaled steroids; Z79.890 Hormone replacement therapy; Z88.6 Allergy status to analgesic agent
CPT/HCPCS: 80053; 80061; 82306; 82525; 82607; 82728; 82746; 83036; 83540; 83550; 83735; 83970; 84100; 84134; 84255; 84425; 84443; 84590; 84630; 85027; 85610; 85730; 99211

== ENCOUNTER 2019-09-06 08:45 | Day surgery (SDC) | payer BC, OTHER ==
[2019-09-04 10:32] VITALS: BMI 79.9
--- NOTE | 2019-09-06 08:05 | P.GSHP ---
History of Present Illness H&P Date: 09/06/19 CHIEF COMPLAINT: Colon screen HISTORY OF PRESENT ILLNESS: The patient is a 59-year-old female who presents for colon screen. Lower endoscopy was offered for further evaluation and management. PAST MEDICAL HISTORY: Please see list. PAST SURGICAL HISTORY: Please see list. MEDICATIONS: Please see list. ALLERGIES: Please see list. SOCIAL HISTORY: No illicit drug use FAMILY HISTORY: No reports of Crohn disease or ulcerative colitis. REVIEW OF ORGAN SYSTEMS: CONSTITUTIONAL: No reports of fevers or chills. PHYSICAL EXAM: VITAL SIGNS: Stable GENERAL: Well-developed pleasant in no acute distress. HEENT: No scleral icterus. Extraocular movements grossly intact. Moist buccal mucosa. NECK: Supple without lymphadenopathy. CHEST: Unlabored respirations. Equal bilateral excursions. CARDIOVASCULAR: Regular rate and rhythm. Distal 2+ pulses. ABDOMEN: Soft, nontender, nondistended. MUSCULOSKELETAL: No clubbing, cyanosis, or edema. ASSESSMENT: 1. Colon screen. PLAN: 1. Recommend proceeding with a lower endoscopy Past Medical History Past Medical History: Asthma, GERD/Reflux, Osteoarthritis (OA), Sleep Apnea/CPAP/BIPAP Additional Past Medical History / Comment(s): Chronic bronchitis, DDD, mid-lower back pain, DJD, arthritis L knee, endometriosis, endometrial pre-cancer, L breast mass-benign, UTIs, [place] uses Cpap, anemia, bilateral carpal tunnel syndrome. History of Any Multi-Drug Resistant Organisms: None Reported Past Surgical History: Breast Surgery, Joint Replacement, Tonsillectomy Additional Past Surgical History / Comment(s): BRONCHOSCOPY, COLONOSCOPY, EXPLORATORY LAP FOR ECTOPIC -RUPTURED FALLOPIAN TUBE WITH REMOVAL, D & C'S, RIGHT TOTAL KNEE (2013), L BREAST BX-BENIGN. Past Anesthesia/Blood Transfusion Reactions: Motion Sickness, Postoperative Nausea & Vomiting (PONV) Smoking Status: Never smoker - Past Family History Mother Family Medical History: Cancer Additional Family Medical History / Comment(s): MOTHER - FROM BREAST CANCER AT THE AGE OF 83 YRS. GRANDMOTHER - BREAST CANCER Father Family Medical History: Congestive Heart Failure (CHF), Diabetes Mellitus Additional Family Medical History / Comment(s): FATHER FROM CHF AT THE AGE OF 78YRS. Medications and Allergies Home Medications Medication Instructions Recorded Confirmed Type RX: Citalopram Hydrobromide 40 mg PO HS 06/04/15 09/04/19 History [CeleXA] RX: Doxepin HCl [SINEquan] 50 mg PO HS 07/21/17 09/04/19 History RX: Furosemide [Lasix] 40 mg PO DAILY 07/21/17 09/04/19 History RX: Gabapentin 800 mg PO BID PRN 07/21/17 09/04/19 History RX: Meloxicam 15 mg PO DAILY 07/21/17 09/04/19 History RX: Montelukast [Singulair] 10 mg PO HS 07/21/17 09/04/19 History RX: Potassium Chloride [Klor-Con 20 meq PO DAILY 07/21/17 09/04/19 History 20] Ergocalciferol [Vitamin D2 50,000 unit PO SA 03/02/19 09/04/19 History (DRISDOL)] Famotidine [Pepcid] 20 mg PO DAILY PRN 03/02/19 09/04/19 History Mirabegron [Myrbetriq] 50 mg PO Q2D 03/02/19 09/04/19 History Albuterol Sulfate [Proair Hfa] 1 - 2 puff INHALATION Q6HR PRN 03/30/19 09/04/19 History Budesonide/Formoterol Fumarate 2 puff INHALATION BID 03/30/19 09/04/19 History [Symbicort 160-4.5 Mcg Inhaler] Ipratropium-Albuterol Nebulize 3 ml INHALATION QID PRN 03/30/19 09/04/19 History [Duoneb 0.5 mg-3 mg/3 ml Soln] Calcium Carbonate/Vitamin D3 600 mg PO BID 04/19/19 09/04/19 History [Caltrate 600 Plus D3 Tablet] RX: Multivitamin with Iron 1 tab PO BID 04/19/19 09/04/19 History [Multivitamins with Iron] Diclofenac Sodium Gel [Voltaren 2 gm TOPICAL QID 08/16/19 09/04/19 History Gel] Levothyroxine Sodium [Synthroid] 50 mcg PO QAM 09/04/19 09/04/19 History Megestrol [Megace] 40 mg PO BID 09/04/19 09/04/19 History Allergies Allergy/AdvReac Type Severity Reaction Status Date / Time aspirin AdvReac Unknown Nausea & Verified 09/04/19 10:17 Vomiting ibuprofen [From Motrin] AdvReac Unknown Nausea & Verified 09/04/19 10:17 Vomiting NSAIDS (Non-Steroidal AdvReac Unknown Nausea & Verified 09/04/19 10:17 Anti-Inflamma Vomiting
[~2019-09-06 08:45] MED LIST: LACTATED RINGERS 1,000 ML IV SCH
[2019-09-06 09:14] VITALS: RESP 16; TEMP 96.2
[2019-09-06] MEDS ORDERED: KETAMINE 10 MG/ML 20 ML VIAL ONE (10:21)
[2019-09-06] MEDS ORDERED: LIDOCAINE 1% INJ 10MG/ML (20 ML MDV) ONE (10:21)
[2019-09-06] MEDS ORDERED: MIDAZOLAM 2 MG/2 ML VIAL ONE (10:21)
[2019-09-06] MEDS ORDERED: PROPOFOL 10 MG/ML 20 ML VIAL IV ONE (10:21)
[2019-09-06] MEDS ORDERED: fentaNYL (PF) 50 MCG/ML 2 ML AMP ONE (10:21)
--- NOTE | 2019-09-06 10:56 | P.PCN ---
Date of Procedure: 09/06/19 Description of Procedure: PREOPERATIVE DIAGNOSIS: Colonoscopy screening, first POSTOPERATIVE DIAGNOSIS: Colonoscopy screening, first Diverticulosis, scattered. OPERATION: Colonoscopy to the ileocecal valve and appendiceal orifice. SURGEON: Cindy Gallardo MD. ANESTHESIA: MAC. INDICATIONS: The patient is a 59-year-old female who presents for her first colonoscopy screening. Benefits and risks were described and informed consent was obtained. DESCRIPTION OF PROCEDURE: The patient had undergone Suprep. She had been brought into the operating room and laid in the left lateral decubitus position. After adequate intravenous sedation, the rectum was examined with 2% lidocaine jelly. No external hemorrhoids were encountered. The rectal tone was within normal limits. No lesions were palpated in the rectal vault. An Olympus colonoscope was advanced until the ileocecal valve and appendiceal orifice were clearly viewed. The prep was poor along the ascending colon limiting full view of the mucosa including the ileocecal valve. Scattered diverticulosis was encountered. No large colonic polyps were found. No evidence of focal colitis was found. Retroflexion of the scope demonstrated grade 1 internal hemorrhoids without active bleeding or inflammation. The colon was desufflated. The patient had tolerated the procedure well. Withdrawal time was over 6 minutes. FINDINGS: Aronchick preparation quality scale 2 rest of colon and 4 along the ascending colon (1-5) Internal hemorrhoids, grade 1 No external prolapsed hemorrhoids. No arteriovenous malformations. No adenomatous polyps. No focal colitis. Sigmoid diverticulosis RECOMMENDATIONS: Lower endoscopy in 5 years, 2024 Plan - Discharge Summary Discharge Rx Participant: No New Discharge Prescriptions: Continue Citalopram Hydrobromide [CeleXA] 40 mg PO HS Gabapentin 800 mg PO BID PRN PRN Reason: Pain Doxepin HCl [SINEquan] 50 mg PO HS Potassium Chloride [Klor-Con 20] 20 meq PO DAILY Montelukast [Singulair] 10 mg PO HS Furosemide [Lasix] 40 mg PO DAILY Famotidine [Pepcid] 20 mg PO DAILY PRN PRN Reason: reflux Ergocalciferol [Vitamin D2 (DRISDOL)] 50,000 unit PO SA Mirabegron [Myrbetriq] 50 mg PO Q2D Budesonide/Formoterol Fumarate [Symbicort 160-4.5 Mcg Inhaler] 2 puff INHALATION BID Albuterol Sulfate [Proair Hfa] 1 - 2 puff INHALATION Q6HR PRN PRN Reason: Shortness Of Breath Ipratropium-Albuterol Nebulize [Duoneb 0.5 mg-3 mg/3 ml Soln] 3 ml INHALATION QID PRN PRN Reason: ASTHMA Multivitamin with Iron [Multivitamins with Iron] 1 tab PO BID Calcium Carbonate/Vitamin D3 [Caltrate 600 Plus D3 Tablet] 600 mg PO BID Diclofenac Sodium Gel [Voltaren Gel] 2 gm TOPICAL QID Levothyroxine Sodium [Synthroid] 50 mcg PO QAM Megestrol [Megace] 40 mg PO BID Discontinued Meloxicam 15 mg PO DAILY Discharge Medication List Citalopram Hydrobromide [CeleXA] 40 mg PO HS 06/04/15 [History] Doxepin HCl [SINEquan] 50 mg PO HS 07/21/17 [History] Furosemide [Lasix] 40 mg PO DAILY 07/21/17 [History] Gabapentin 800 mg PO BID PRN 07/21/17 [History] Montelukast [Singulair] 10 mg PO HS 07/21/17 [History] Potassium Chloride [Klor-Con 20] 20 meq PO DAILY 07/21/17 [History] Ergocalciferol [Vitamin D2 (DRISDOL)] 50,000 unit PO SA 03/02/19 [History] Famotidine [Pepcid] 20 mg PO DAILY PRN 03/02/19 [History] Mirabegron [Myrbetriq] 50 mg PO Q2D 03/02/19 [History] Albuterol Sulfate [Proair Hfa] 1 - 2 puff INHALATION Q6HR PRN 03/30/19 [History] Budesonide/Formoterol Fumarate [Symbicort 160-4.5 Mcg Inhaler] 2 puff INHALATION BID 03/30/19 [History] Ipratropium-Albuterol Nebulize [Duoneb 0.5 mg-3 mg/3 ml Soln] 3 ml INHALATION QID PRN 03/30/19 [History] Calcium Carbonate/Vitamin D3 [Caltrate 600 Plus D3 Tablet] 600 mg PO BID 04/19/19 [History] Multivitamin with Iron [Multivitamins with Iron] 1 tab PO BID 04/19/19 [History] Diclofenac Sodium Gel [Voltaren Gel] 2 gm TOPICAL QID 08/16/19 [History] Levothyroxine Sodium [Synthroid] 50 mcg PO QAM 09/04/19 [History] Megestrol [Megace] 40 mg PO BID 09/04/19 [History] [facility] [facility] [place] [place] [facility] Patient Instructions/Handouts: Colonoscopy (DC), *Surgery [facility] - (Anesthesia) Endoscopy Discharge Instructions, Diverticulosis Diet (GEN), Diverticulosis (ED), Constipation (ED) Activity/Diet/Wound Care/Special Instructions: Repeat colonoscopy 5 years, 2024 Discharge Disposition: HOME SELF-CARE
[2019-09-06 11:46] VITALS: BP 139/75; PULSE 89
== END 2019-09-06 11:46 | disposition home or self-care (01) ==
LOC: ORWHC2ENDO 08:45
PROVIDERS: ATTEND Surgery Plastic and Reconstructive Surgery
DX: Z12.11 Encounter for screening for malignant neoplasm of colon (principal); K57.30 Diverticulosis of large intestine without perforation or abscess without bleeding; K64.0 First degree hemorrhoids; J45.909 Unspecified asthma, uncomplicated; G47.33 Obstructive sleep apnea (adult) (pediatric); E07.9 Disorder of thyroid, unspecified; M19.90 Unspecified osteoarthritis, unspecified site; K21.9 Gastro-esophageal reflux disease without esophagitis; Z87.440 Personal history of urinary (tract) infections; Z79.51 Long term (current) use of inhaled steroids; Z79.890 Hormone replacement therapy; Z79.899 Other long term (current) drug therapy; Z88.6 Allergy status to analgesic agent; Z98.890 Other specified postprocedural states; Z96.651 Presence of right artificial knee joint; Z80.3 Family history of malignant neoplasm of breast; Z82.49 Family history of ischemic heart disease and other diseases of the circulatory system; Z83.3 Family history of diabetes mellitus
CPT/HCPCS: J2250; J2001; J3010; J2704; G0121

== ENCOUNTER → 2019-09-07 | Outpatient (CLI) | payer BC, OTHER ==
--- NOTE | 2019-09-07 10:08 | CT ---
EXAMINATION TYPE: CT abdomen pelvis w con DATE OF EXAM: 09/07/2019 COMPARISON: NONE HISTORY: 59-year-old female Pre Bariatric surgery. History of diverticulitis TECHNIQUE: Contiguous axial scanning of the abdomen and pelvis following administration of 100 ml Iso keo 300 IV contrast. Delayed images through the kidneys and coronal/sagittal reconstructions perform ed. CT DLP: 4450.7 mGycm Automated exposure control for dose reduction was used. FINDINGS: Very large patient body habitus results in contact along the sides of the gantry and prominent artifa cts. Heart borderline enlarged without pericardial effusion. 7 mm right basilar pulmonary nodule, axial image 4. 4 mm subpleural pulmonary nodule peripheral right lower lobe, axial image 8. Liver enlarged at 19.6 cm with low-attenuation. No definite focal liver lesion seen For the artifacts. No biliary ductal dilatation. Portal venous system appears patent. Cholecystectomy clips. Adrenal glands, left kidney, spleen, and pancreas appear within normal limits. Slightly malrotated ri ght kidney. No dilated small bowel, free fluid, or free air. No mesenteric or retroperitoneal lymphadenopathy see n. Oral contrast progressed to the proximal transverse colon. No significant stool burden. Redundant sig moid colon. There may be a couple mid to distal sigmoid diverticula. Questionable pericolonic fat str anding along the distal sigmoid, axial image 67 versus streak and noise artifact. No abnormal wall t hickening in this location. Further clinical correlation will be needed for any acute symptoms. Small to moderate-sized fatty umbilical hernia measuring 4.5 cm wide. Bladder partially distended. Uterus anteverted. Unable to clearly identify the ovaries. No abnormal f luid collection the pelvis. No pelvic lymphadenopathy identified. Bones: Minimally limited assessment due to extensive artifact. Facet arthropathy lower lumbar spine. Anterior endplate spondylosis lower thoracic spine. IMPRESSION: 1. EXAM LIMITATIONS DUE TO LARGE BODY HABITUS RESULTING IN STREAK AND NOISE ARTIFACTS. 2. SOME STRANDY/HAZY DENSITY AROUND THE DISTAL SIGMOID COULD BE ARTIFACT. CORRELATE CLINICALLY TO EXC LUDE MILD ACUTE DIVERTICULITIS. ONLY MINIMAL DIVERTICULAR CHANGE IS PRESENT IN THE MID TO DISTAL SIGM OID. 3. A COUPLE RIGHT BASILAR PULMONARY NODULES MEASURING UP TO 7 MM. THREE-MONTH FOLLOW-UP CONTRAST ENHA NCED CT CHEST RECOMMENDED TO REASSESS THESE NODULES AND ALSO TO SURVEY THE REMAINDER OF THE LUNGS. 4. UTERUS APPEARS PROMINENT FOR A POSTMENOPAUSAL FEMALE. ENDOMETRIAL STRIPE NOT ADEQUATELY ASSESSED B Y CT. IF INDICATED, PELVIC ULTRASOUND CAN BE CONSIDERED. 5. 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 SMALL TO MODERATE-SIZED FATTY UMBILICAL HERNIA.
== END | disposition home or self-care (01) ==
LOC: RADCTMAIN 07:00
PROVIDERS: ATTEND Surgery Plastic and Reconstructive Surgery
DX: Z78.0 Asymptomatic menopausal state (principal); R16.0 Hepatomegaly, not elsewhere classified; K76.0 Fatty (change of) liver, not elsewhere classified; K42.9 Umbilical hernia without obstruction or gangrene; K57.92 Diverticulitis of intestine, part unspecified, without perforation or abscess without bleeding
CPT/HCPCS: 74177; 36415; Q9967

== ENCOUNTER 2019-09-11 06:12 | Inpatient (IN) | payer BC, OTHER ==
[2019-09-07 08:35] LABS: Basophils # (A) 0.1 k/uL (0-0.2); Basophils % (A) 0 %; Eosinophils # (A) 0.2 k/uL (0-0.7); Eosinophils % (A) 2 %; HCT 42.3 % (34.0-46.0); HGB 13.4 gm/dL (11.4-16.0); Lymphocytes # (A) 1.9 k/uL (1.0-4.8); Lymphocytes % (A) 18 %; MCH 30.6 pg (25.0-35.0); MCHC 31.6 g/dL (31.0-37.0); MCV 96.7 fL (80.0-100.0); Mean Platelet Volume 8.8; Monocytes # (A) 0.7 k/uL (0-1.0); Monocytes % (A) 6 %; Neutrophils # (A) 7.3 k/uL (1.3-7.7); Neutrophils % (A) 71 %; Platelet Count 301 k/uL (150-450); RBC 4.37 m/uL (3.80-5.40); RDW 13.1 % (11.5-15.5); WBC 10.3 k/uL (3.8-10.6)
[~2019-09-11 06:12] MED LIST changes: +DEXAMETHASONE SOD PHOSPHATE 10 MG/ML 1 ML VIAL IV ONE; -LACTATED RINGERS 1,000 ML IV SCH; +ONDANSETRON 4 MG/2 ML VIAL IVP ONE
[2019-09-11] MEDS ORDERED: PANTOPRAZOLE 40 MG/10 ML VIAL IV STA (06:14)
[2019-09-11] MEDS ORDERED: ENOXAPARIN 40 MG/0.4 ML SYRINGE SQ STA (06:14)
[2019-09-11] MEDS ORDERED: CHLORHEXIDINE GLUCONATE 15 ML CUP MUCOUS MEM ONE (06:14)
--- NOTE | 2019-09-11 06:14 | P.GSHP ---
History of Present Illness H&P Date: 09/11/19 CHIEF COMPLAINT: Morbid obesity HISTORY OF PRESENT ILLNESS: Elsa Corrales is a 59-year-old female who comes with lifelong morbid obesity. She reports being on Megace for endometrial cancer. She had a D&C for endometrial deposits. She is on Meloxicam for joint pain. She is looking into the sleeve gastrectomy for weigh loss. She has tried Weight watches, Adipex, Joudia, TOPS for weight loss. Her most weight loss was with Weight watchers. She lost 100+ pounds and regained weight fom depression after the passing of her . She sees Dr. Denny. She had her gallbladder removed in July 2017. She reports lower leg swelling and lower back pain and needs a left knee replacement. She has severe sleep apnea. She takes anti- seizure medications. She has gotten pulmonary clearance. She was in the ICU for 4 days for troubles with intubation in the past. At height of 5 feet 2.25 inches, her ideal body weight is 135 pounds. She comes in 423 pounds. Her body mass index is 77.5. She is 283 pounds overweight. PAST MEDICAL HISTORY: 1. Morbid obesity due to excess calories 2. Body mass index of 88.7, highest 3. Asthma 4. Neuropathy 5. Hypothyroidism 6. Hypertensive heart disease. 7. Osteoarthritis of the knees. 8. Osteoarthritis of the lower back. 9. Bilateral lower extremity swelling 10. Gastroesophageal reflux disease 11. Endometrial cancer 12. Depressive disorder 13. Obstructive sleep apnea 14. Seizure PAST SURGICAL HISTORY: 1. D&C 2. Cholecystectomy 3. Colonoscopy 4. Bronchoscopy 5. Right knee arthroplasty 6. Left breast biopsy 7. Tonsillectomy HOME MEDICATIONS: Home Medications Medication Instructions Recorded Confirmed Citalopram Hydrobromide [CeleXA] 40 mg PO HS 06/04/15 04/19/19 Doxepin HCl [SINEquan] 50 mg PO HS 07/21/17 04/19/19 Furosemide [Lasix] 40 mg PO DAILY 07/21/17 04/19/19 Gabapentin 800 mg PO BID 07/21/17 04/19/19 Meloxicam 15 mg PO DAILY 07/21/17 04/19/19 Montelukast [Singulair] 10 mg PO HS 07/21/17 04/19/19 Potassium Chloride [Klor-Con 20] 20 meq PO DAILY 07/21/17 04/19/19 Ranitidine HCl [Zantac] 150 mg PO HS 07/21/17 04/19/19 Ergocalciferol [Vitamin D2 50,000 unit PO SA 03/02/19 04/19/19 (DRISDOL)] Famotidine [Pepcid] 20 mg PO DAILY 03/02/19 04/19/19 Mirabegron [Myrbetriq] 50 mg PO DAILY 03/02/19 04/19/19 Albuterol Sulfate [Proair Hfa] 1 - 2 puff INHALATION Q6HR PRN 03/30/19 04/19/19 Budesonide/Formoterol Fumarate 2 puff INHALATION BID 03/30/19 04/19/19 [Symbicort 160-4.5 Mcg Inhaler] Ipratropium-Albuterol Nebulize 3 ml INHALATION QID PRN 03/30/19 04/19/19 [Duoneb 0.5 mg-3 mg/3 ml Soln] Calcium Carbonate/Vitamin D3 600 mg PO BID 04/19/19 04/19/19 [Caltrate 600 Plus D3 Tablet] Multivitamin with Iron 1 tab PO BID 04/19/19 04/19/19 [Multivitamins with Iron] Previous Rx's Medication Instructions Recorded Levothyroxine Sodium [Synthroid] 50 mcg PO DAILY #30 tab 04/19/19 ALLERGIES: Allergies Allergy/AdvReac Type Severity Reaction Status Date / Time aspirin AdvReac Unknown Nausea & Verified 04/19/19 15:14 Vomiting ibuprofen [From Motrin] AdvReac Unknown Nausea & Verified 04/19/19 15:14 Vomiting NSAIDS (Non-Steroidal AdvReac Unknown Nausea & Verified 04/19/19 15:14 Anti-Inflamma Vomiting SOCIAL HISTORY: No past tobacco use. FAMILY HISTORY: No family history of ulcerative colitis disease or Crohn's dis ease. Family history of morbid obesity. No lupus in the family. No reports of stomach or esophageal cancer. REVIEW OF ORGAN SYSTEMS: CONSTITUTIONAL: At height of 5 feet 2.25 inches, her ideal body weight is 135 pounds. She comes in 427 pounds. Her body mass index is 77.4. She is 292 pounds overweight. Highest 484 pounds, BMI 88.7. HEENT: Denies any active troubles with vision or hearing. No troubles with swallowing. ENDOCRINE: No diabetes. No hypothyroidism. CARDIOVASCULAR: No past reports of palpitations or heart attacks or chest pain. RESPIRATORY: Has daytime somnolence. Has asthma. GASTROINTESTINAL: Denies any bright red blood per rectum. No diarrhea. No constipation. MUSCULOSKELETAL: Has lower back pain and joint pain. Has osteoarthritis of the knees. History of bilateral lower extremity edema. NEURO: Has headaches. Has seizure disorders. PSYCH: Has depression. No suicidal ideation. RHEUMATOLOGIC: No lupus. No rheumatoid arthritis. HEMATOLOGIC: Denies any abnormal bleeding or bruising. No personal history of DVTs. SKIN: No rash. No skin cancer. PHYSICAL EXAM: VITAL SIGNS: Height 5 foot 2.25 inches, weight 423 pounds. BMI 77.5 GENERAL: Well-developed in no acute distress. HEENT: No scleral icterus. Extraocular movements grossly intact. Hears c onversational speech. No nasal drainage. NECK: Supple without lymphadenopathy. CHEST: Nonlabored respirations with equal bilateral excursions. CARDIOVASCULAR: Distal 2+ pulses. ABDOMEN: Obese, soft, nontender, nondistended. MUSCULOSKELETAL: No clubbing, cyanosis. 1+ edema. NEURO: No focal or lateralizing signs. Cranial nerves 2 through 12 grossly within normal limits. PSYCH: Appropriate affect. Alert and oriented to person, place and time. SKIN: Good skin turgor. Well perfused. ASSESSMENT: 1. Morbid obesity due to excess calories 2. Body mass index of 88.7, initial 3. Asthma 4. Neuropathy 5. Hypothyroidism 6. Hypertensive heart disease. 7. Osteoarthritis of the knees. 8. Osteoarthritis of the lower back. 9. Bilateral lower extremity swelling 10. Gastroesophageal reflux disease 11. Endometrial cancer 12. Depressive disorder 13. Obstructive sleep apnea 14. Seizure PLAN: 1. Bariatric options between a sleeve, band and a Aruna-en-Y gastric bypass were reviewed in detail. The patient elected for a sleeve gastrectomy. Robotic assisted approach described. 2. The [place] [facility] Data was also reviewed with benefits and risks as described. 3. An 8 page second-generation bariatric consent form was reviewed in detail including potential of bleeding, infection, leaks, adequate weight loss, nutritional deficiencies which the patient demonstrated understanding of the risks. 4. A 2 week high-protein low caloric 800 kcal diet described to address hepatomegaly. 5. Preoperative labs including complete metabolic panel and CBC with type and screen recommended. 6. DVT prophylaxis per [place] [facility]. 7. Antibiotic prophylaxis. 8. Inpatient hospitalization anticipated for more than 2 nights. 9. All questions and concerns were addressed with the patient. 10. She is very high risk for any surgical intervention with the severity of her pulmonary disease Past Medical History Past Medical History: Asthma, COPD, GERD/Reflux, Osteoarthritis (OA), Sleep Apnea/CPAP/BIPAP Additional Past Medical History / Comment(s): Chronic bronchitis, DDD, mid-lower back pain, DJD, endometriosis, endometrial dysplasia(pre cancer) , UTIs, anemia, bilateral carpal tunnel syndrome. arthritis left knee(states needs replacement) History of Any Multi-Drug Resistant Organisms: None Reported Past Surgical History: Breast Surgery, Joint Replacement, Tonsillectomy Additional Past Surgical History / Comment(s): BRONCHOSCOPY, COLONOSCOPY, EXPLORATORY LAP FOR ECTOPIC -RUPTURED FALLOPIAN TUBE WITH REMOVAL, D & C'S, RIGHT knee replacement, L BREAST lumpectomy-benign Past Anesthesia/Blood Transfusion Reactions: Motion Sickness, Postoperative Nausea & Vomiting (PONV) Additional Past Anesthesia/Blood Transfusion Reaction / Comment(s): DIFF intubation for hui surgery 07/22/2017 at [facility](records on chart). pt to bring in letter from anesthesiologist Smoking Status: Never smoker - Past Family History Mother Family Medical History: Cancer Additional Family Medical History / Comment(s): MOTHER - FROM BREAST CANCER Father Family Medical History: Congestive Heart Failure (CHF), Diabetes Mellitus Additional Family Medical History / Comment(s): FATHER FROM CHF AT THE AGE OF 78YRS. Medications and Allergies Home Medications Medication Instructions Recorded Confirmed Type Citalopram Hydrobromide [CeleXA] 40 mg PO HS 06/04/15 09/06/19 History Doxepin HCl [SINEquan] 50 mg PO HS 07/21/17 09/06/19 History Furosemide [Lasix] 40 mg PO DAILY 07/21/17 09/06/19 History Gabapentin 800 mg PO BID PRN 07/21/17 09/06/19 History Montelukast [Singulair] 10 mg PO HS 07/21/17 09/06/19 History Potassium Chloride [Klor-Con 20] 20 meq PO DAILY 07/21/17 09/06/19 History Famotidine [Pepcid] 20 mg PO DAILY PRN 03/02/19 09/06/19 History Mirabegron [Myrbetriq] 50 mg PO HS PRN 03/02/19 09/06/19 History Albuterol Sulfate [Proair Hfa] 1 - 2 puff INHALATION Q6HR PRN 03/30/19 09/06/19 History Budesonide/Formoterol Fumarate 2 puff INHALATION BID 03/30/19 09/06/19 History [Symbicort 160-4.5 Mcg Inhaler] Ipratropium-Albuterol Nebulize 3 ml INHALATION QID PRN 03/30/19 09/06/19 History [Duoneb 0.5 mg-3 mg/3 ml Soln] Calcium Carbonate/Vitamin D3 600 mg PO BID 04/19/19 09/06/19 History [Caltrate 600 Plus D3 Tablet] Multivitamin with Iron 1 tab PO BID 04/19/19 09/06/19 History [Multivitamins with Iron] Diclofenac Sodium Gel [Voltaren 2 gm TOPICAL QID 08/16/19 09/06/19 History Gel] Levothyroxine Sodium [Synthroid] 50 mcg PO QAM 09/04/19 09/06/19 History Megestrol [Megace] 40 mg PO BID 09/04/19 09/06/19 History Allergies Allergy/AdvReac Type Severity Reaction Status Date / Time aspirin AdvReac Unknown Nausea & Verified 09/06/19 14:17 Vomiting ibuprofen [From Motrin] AdvReac Unknown Nausea & Verified 09/06/19 14:17 Vomiting NSAIDS (Non-Steroidal AdvReac Unknown Nausea & Verified 09/06/19 14:17 Anti-Inflamma Vomiting Results - Labs 09/07/19 08:15
[2019-09-11] MEDS ORDERED: ACETAMINOPHEN IV (For NPO) 1,000 MG in EMPTY BAG 1 BAG IVPB ONE (06:15)
[2019-09-11] MEDS: LACTATED RINGERS 1,000 ML IV SCH (07:09)
[2019-09-11] MEDS ORDERED: SCOPOLAMINE 1.5MG/72HR PATCH TRANSDERM ONE (07:09)
[2019-09-11] MEDS ORDERED: ALBUTEROL NEBULIZED 2.5 MG/3 ML INHALATION STA (07:14)
[2019-09-11 07:25] LABS: Glucose,Whole Blood 102 mg/dL (75-99)
[2019-09-11] MEDS ORDERED: KETAMINE 10 MG/ML 20 ML VIAL ONE (08:16)
[2019-09-11] MEDS ORDERED: ROCURONIUM BROMIDE 10 MG/ML 5 ML VIAL IV ONE (08:16)
[2019-09-11] MEDS ORDERED: SUCCINYLCHOLINE CHLORIDE 100 MG/5 ML SYR IV ONE (08:16)
[2019-09-11] MEDS ORDERED: PROPOFOL 10 MG/ML 20 ML VIAL IV ONE (08:16)
[2019-09-11] MEDS ORDERED: LIDOCAINE 1% INJ 10MG/ML (20 ML MDV) ONE (08:16)
[2019-09-11] MEDS ORDERED: HYDROmorphone (PF) 1 MG/ML ONE (08:16)
[2019-09-11] MEDS ORDERED: GLYCOPYRROLATE 0.2 MG/ML 2 ML VIAL ONE (08:16)
[2019-09-11] MEDS ORDERED: MIDAZOLAM 2 MG/2 ML VIAL ONE (08:16)
[2019-09-11] MEDS ORDERED: NEOSTIGMINE 1 MG/ML 10 ML VIAL ONE (08:16)
[2019-09-11] MEDS ORDERED: fentaNYL (PF) 50 MCG/ML 2 ML AMP ONE (08:16)
[2019-09-11] MEDS: ceFAZolin 3 GM in SODIUM CHLORIDE 0.9% 100 ML IVPB ONE ×2 (08:20→08:45)
[2019-09-11] MEDS ORDERED: BUPIVACAIN-EPI 0.25%-1:200,000 30 ML VIAL SQ ONE (08:57)
[2019-09-11] MEDS ORDERED: LACTATED RINGERS 1,000 ML IV ONE (10:35)
[2019-09-11] MEDS ORDERED: ONDANSETRON 4 MG/2 ML VIAL IVP ONE (11:22)
[2019-09-11] MEDS: HYDROmorphone 0.5 MG/0.5 ML SYRINGE IVP PRN ×4 (11:30→14:40)
[2019-09-11] MEDS ORDERED: GABAPENTIN 400 MG CAP PO PRN (11:43)
[2019-09-11] MEDS ORDERED: Mirabegron [Myrbetriq] PO PRN (11:43)
[2019-09-11] MEDS ORDERED: IPRATROPIUM-ALBUTEROL 3 ML NEB INHALATION PRN (11:43)
[2019-09-11] MEDS ORDERED: DEXAMETHASONE SOD PHOSPHATE 10 MG/ML 1 ML VIAL IV PRN (11:44)
[2019-09-11] MEDS ORDERED: SCOPOLAMINE 1.5MG/72HR PATCH TRANSDERM STA (11:44)
[2019-09-11] MEDS ORDERED: diphenhydrAMINE 50 MG/ML 1 ML VIAL IVP PRN (11:45)
[2019-09-11] MEDS ORDERED: NALOXONE 0.4 MG/ML 1 ML VIAL IV PRN (11:45)
--- NOTE | 2019-09-11 12:03 | P.OP ---
Date of Procedure: 09/11/19 Description of Procedure: SURGEON: JONNATHAN WALL MD PREOPERATIVE DIAGNOSES: 1. Morbid obesity due to excess calories 2. Body mass index of 88.7, initial 3. Asthma 4. Neuropathy 5. Hypothyroidism 6. Hypertensive heart disease. 7. Osteoarthritis of the knees. 8. Osteoarthritis of the lower back. 9. Bilateral lower extremity swelling 10. Gastroesophageal reflux disease 11. Endometrial cancer 12. Depressive disorder 13. Obstructive sleep apnea, severe 14. Seizure 15. Difficult intubation POSTOPERATIVE DIAGNOSES: 1. Morbid obesity due to excess calories 2. Body mass index of 88.7, initial 3. Asthma 4. Neuropathy 5. Hypothyroidism 6. Hypertensive heart disease. 7. Osteoarthritis of the knees. 8. Osteoarthritis of the lower back. 9. Bilateral lower extremity swelling 10. Gastroesophageal reflux disease 11. Endometrial cancer 12. Depressive disorder 13. Obstructive sleep apnea 14. Seizure 15. Peritoneal adhesions lower midline including umbilicus 16. Difficult intubation 17. Moderate to severe hepatomegaly with fatty liver disease OPERATION: 1. Robotic assisted daVinci Xi laparoscopic sleeve gastrectomy with 40-Mongolian bougie, multiport. 2. Intraoperative esophagogastroduodenoscopy. ANESTHESIA: Gen. local anesthetic ESTIMATED BLOOD LOSS: 5 mL SPECIMENS REMOVED: Sleeve gastrectomy COMPLICATIONS: None. INDICATIONS: Elsa Corrales is a 59-year-old female who comes with lifelong morbid obesity. She has tried Weight watches, Adipex, Joudia, TOPS for weight loss. She reports lower leg swelling and lower back pain and needs a left knee replacement. She has severe sleep apnea. She takes anti-seizure medications. She has history of difficult intubation. She completed cardiac, pulmonary, medical risk assessment. At height of 5 feet 2.25 inches, her ideal body weight is 135 pounds. She comes in 423 pounds. Her body mass index is 77.5. She is 283 pounds overweight. She comes in for sleeve gastrectomy. All surgical options for morbid obesity had been described using the [place] [facility] comorbidity resolution including complication risk score. A second-generation bariatric consent form was described in detail including the possibility of protein malnutrition, leaks, gastric stricture, venous thr ombosis, gastroesophageal reflux disease, need for further surgery for which she demonstrated understanding. Benefits and risks of the procedure were described at length. Informed consent was obtained. DESCRIPTION: The patient was brought into the operating room theater. Preoperatively she had received Lovenox subcutaneously for DVT prophylaxis. Additionally she had Peridex oral solution as an oral decontaminant. After general induction, the abdomen was prepped and draped in standard sterile fashion. An Ioban draping was placed along the abdomen. A robotic da Jackelyn Xi system was prepped and primed. At 15 cm from the xiphoid, proposed port sites were marked with indelible marker along the anterior axillary line bilaterally, mid axillary line bilaterally with each ports were marked 10 to 15 cm from each other. The pharmacy affairs assistant port was marked along the left lateral abdominal wall. The robotic stapler port was marked for the right midclavicular line. A 5 mm 0 degrees laparoscopic trocar entry was performed along the left upper quadrant. The abdomen was insufflated to 15 mmHg pressure was tolerated well. Diagnostic laparoscopy demonstrated no injury to bowel, viscera, or mesentery. Moderate lower abdominal adhesions extending from the umbilicus was identified. Additionally, fatty liver disease was also identified with moderate to severe hepatomegaly. Adhesions were also identified left upper quadrant. No injury had occurred to the small bowel or viscera. The hiatus was obscured by a referring large redundant floppy liver. A 8 mm port was placed along the left upper abdominal wall after exchanging the 5 mm port. A separate 8 mm port was placed along the left lateral abdominal wall. Please note that the ports were placed at least 20 cm away from the target anatomy. Care was taken to check each robotic arms were safely away from collision with the bed or the patient. At the epigastrium, a medium sized Razia liver retractor was placed under direct visualization with the Iron Insole Cementer placed under the right shoulder of the patient. Next, 12-mm robot stapler port was placed along the right upper quadrant. The camera 8-mm port was maintained along the epigastrium, The patient was repositioned in reverse Trendelenburg position at 21-degrees after lowering the bed. The robot was docked along the left side of the patient. Using a grasper for arm 4, a vessel sealer for arm 3, including grasper for arm 1, the robotic system was docked and primed as described. Instruments were interchanged by the pharmacy affairs assistant for stapler loads. The camera was placed at 30-degrees down. I had sat at the console. Adhesions along the left upper quadrant were divided and lysed using vessel sealer as the omentum was adherent to the left chest wall obscuring vision. The pylorus was identified and 6 cm proximally along the greater curvature of the stomach, the short gastrics were mobilized upwards to the angle of His using a vessel sealer. Hemostasis was excellent during this portion of the procedure. Next, the upper pole of the stomach was adherent to the left tammi including that the spleen, which was gently dissected free using atraumatic grasper. I placed a 40-Mongolian blunted bougie into the stomach. Robotic stapler black loads 60 mm x 2, followed by green 60 mm x 5 loads were used to create the sleeve. Initial firing was across the antrum of the stomach towards the angle of His. The staple line was completely hemostatic and linear. Hemostasis was excellent. The space from the angularis incisura of the sleeve was approximately 4 cm. additionally, a small incarcerated hiatal hernia was identified after careful inspection of the hiatus once lifting the left lobe of the liver. This however was undisturbed given the limited visibility to repair the hiatus and moderate intra-abdominal tissue due to her body habitus. I then went to the head of the bed to perform the intraoperative esophagogastroduodenoscopy leak test. The upper pole of the stomach was bathed using normal saline solution. The scope was withdrawn with careful inspection along the staple line for which no leaks were found along the entire length. Additionally,the sleeve was completely hemostatic without any encroachment along the angularis incisura. Its topology was a soft "J". No stricture was encountered upon placement of the scope. The GI tract was desufflated. The patient tolerated this portion of the procedure well. The scope was completely withdrawn. The robot was undocked. I then rescrubbed into case, whereby the irrigation fluid was aspirated from the abdominal cavity. Tisseel fibrin sealant was placed along the entire staple length. Once dried the Razia liver retractor was removed. Attention was now brought to removal of the specimen. The distal end of the sleeve gastrectomy specimen was brought out through the 12 mm port at the left upper quadrant. The specimen was gently removed en total. No contamination had occurred during this process. All instruments and pneumoperitoneum including irrigation fluid was removed from the abdominal cavity. The 12 mm port site was closed using 0-Vicryl and Mk Jeffrey and irrigated with diluted hydrogen peroxide. The final incisions were closed using subcuticular interrupted suture of 4-0 Monocryl. Dermabond was applied to the skin once the skin had been cleansed with dilute hydrogen peroxide. OptiFoam dressing was placed along the stomach extraction site. At the end of the procedure, needle, sponge, and instrument count was verified correct by the surgical coordinator. The patient was taken to the postanesthesia care unit in stable condition. She had tolerated the procedure well. Intraoperative films and findings were reviewed with the patient's family. FINDINGS: 1. Negative intraoperative esophagogastrojejunoscopy leak test. 2. Small hiatus hernia discovered by severe hepatomegaly with fatty liver disease 3. Total of 7 staplers used including 5 - 60 mm green robot álvaro and 2 - 60 mm black robot loads used to create the gastric sleeve. 4. Moderate to severe hepatomegaly with fatty liver disease 5. Trocars placed 15 cm from xiphoid process 6. Sleeve gastrectomy 32 x 5 cm 7. Console time 73 minutes
[2019-09-11] MEDS: HYOSCYAMINE ORAL DROPS 1.875 MG/15 ML BOTTLE PO SCH ×3 (14:51→23:14)
[2019-09-11] MEDS: DEXAMETHASONE SOD PHOSPHATE 4 MG/ML 1 ML VIAL IV SCH ×3 (14:51→23:13)
[2019-09-11] MEDS: DICLOFENAC SODIUM GEL 100 GM TUBE TOPICAL SCH ×3 (14:52→21:36)
[2019-09-11] MEDS: SIMETHICONE 40 MG/0.6 ML DROPS 2,000 MG/30 ML BOTTLE PO SCH ×3 (14:52→23:13)
[2019-09-11] MEDS: ALBUTEROL NEBULIZED 2.5 MG/3 ML INHALATION SCH ×3 (15:39→19:53)
[2019-09-11] MEDS: 0.9% NACL WITH KCL 20 MEQ/L 1,000 ML IV SCH ×2 (16:10→21:37)
--- NOTE | 2019-09-11 17:32 | P.PN ---
Progress Note - Text Progress Note Date: 09/11/19 Patient doing extremely well following surgery. Also patient been seen by pulmonary for history of severe obstructive sleep apnea. She denies any dyspnea. She feels well. Pain is controlled. Likely discharge home tomorrow with follow-up in the bariatric center in 2 to 3 days.
--- NOTE | 2019-09-11 17:37 | P.CNPUL ---
History of Present Illness Consult date: 09/11/19 Requesting physician: Cindy Gallardo Reason for consult: obstructive sleep apnea Chief complaint: Severe obstructive sleep apnea, morbid obesity History of present illness: 59-year-old white female patient who follows with Dr. Denny, with history of morbid obesity, combined obstructive and restrictive lung disease related to chronic bronchial asthma, and morbid obesity, depression, history of chronic low back pain, GERD, endometrial cancer status post D&C, who underwent robotic-assisted da Jackelyn laparoscopic sleeve gastrectomy, intraoperative esophagogastroduodenoscopy, postoperative day 0. Patient is currently on 3 L of oxygen the pulse ox of 96%, afebrile, hemodynamically she is stable. On the outpatient basis she was last evaluated 2 years ago for ADEBAYO and has a CPAP with a min pressure of 11 and max pressure of 15 cm of H2O. She would like to get established with a sleep specialist locally and has a upcoming evaluation for sleep apnea with Dr. Juárez. Patient was transferred to regular general medical surgical floor following the procedure, she tolerated surgery well. She is on Symbicort and albuterol inhalers, she is on Kefzol per surgery, he is on Lovenox for DVT prophylaxis. IV fluids with a 20 any Potassium at a rate of 150 ML per hour. We're consulted for history of obstructive sleep apnea. Patient was cleared in the preoperative period by Dr. Conn on 08/17/2019. Review of Systems All systems: negative Constitutional: Denies chills, Denies fever Eyes: denies blurred vision, denies pain Ears, nose, mouth and throat: Denies headache, Denies sore throat Cardiovascular: Denies chest pain, Denies shortness of breath Respiratory: Denies cough Gastrointestinal: Denies abdominal pain, Denies diarrhea, Denies nausea, Denies vomiting Genitourinary: Denies dysuria, Denies hematuria Musculoskeletal: Denies myalgias Integumentary: Denies pruritus, Denies rash Neurological: Denies numbness, Denies weakness Psychiatric: Denies anxiety, Denies depression Endocrine: Denies fatigue, Denies weight change Past Medical History Past Medical History: Asthma, GERD/Reflux, Osteoarthritis (OA), Sleep Apnea/CPAP/BIPAP Additional Past Medical History / Comment(s): Chronic bronchitis, degenerative disc disease, mid-lower back pain, degenerative joint disease, endometriosis, endometrial dysplasia(pre cancer), UTIs, anemia, bilateral carpal tunnel syndro me. arthritis left knee(states needs replacement) History of Any Multi-Drug Resistant Organisms: None Reported Past Surgical History: Breast Surgery, Joint Replacement, Tonsillectomy Additional Past Surgical History / Comment(s): BRONCHOSCOPY, COLONOSCOPY, EXPLORATORY LAP FOR ECTOPIC -RUPTURED FALLOPIAN TUBE WITH REMOVAL, D & C'S, RIGHT knee replacement, L BREAST lumpectomy-benign Past Anesthesia/Blood Transfusion Reactions: Motion Sickness, Postoperative Nausea & Vomiting (PONV) Additional Past Anesthesia/Blood Transfusion Reaction / Comment(s): DIFF intubation for hui surgery 07/22/2017 at [facility](records on chart). pt to bring in letter from anesthesiologist Past Psychological History: Anxiety Additional Psychological History / Comment(s): "anxiety when going into doctors" Smoking Status: Never smoker Past Alcohol Use History: None Reported Past Drug Use History: None Reported - Past Family History Mother Family Medical History: Cancer, Hyperlipidemia, Hypertension Additional Family Medical History / Comment(s): MOTHER - FROM BREAST CANCER Father Family Medical History: Congestive Heart Failure (CHF), Diabetes Mellitus Additional Family Medical History / Comment(s): FATHER FROM CHF AT THE AGE OF 78YRS. Medications and Allergies Home Medications Medication Instructions Recorded Confirmed Type Citalopram Hydrobromide [CeleXA] 40 mg PO HS 06/03/09/06/19 History Doxepin HCl [SINEquan] 50 mg PO HS 07/21/17 09/06/19 History Furosemide [Lasix] 40 mg PO DAILY 07/21/17 09/06/19 History Gabapentin 800 mg PO BID PRN 07/21/17 09/06/19 History Montelukast [Singulair] 10 mg PO HS 07/21/17 09/06/19 History Potassium Chloride [Klor-Con 20] 20 meq PO DAILY 07/21/17 09/06/19 History Famotidine [Pepcid] 20 mg PO DAILY PRN 03/02/19 09/06/19 History Mirabegron [Myrbetriq] 50 mg PO HS PRN 03/02/19 09/06/19 History Albuterol Sulfate [Proair Hfa] 1 - 2 puff INHALATION Q6HR PRN 03/30/19 09/06/19 History Budesonide/Formoterol Fumarate 2 puff INHALATION BID 03/30/19 09/06/19 History [Symbicort 160-4.5 Mcg Inhaler] Ipratropium-Albuterol Nebulize 3 ml INHALATION QID PRN 03/30/19 09/06/19 History [Duoneb 0.5 mg-3 mg/3 ml Soln] Calcium Carbonate/Vitamin D3 600 mg PO BID 04/19/19 09/06/19 History [Caltrate 600 Plus D3 Tablet] Multivitamin with Iron 1 tab PO BID 04/19/19 09/06/19 History [Multivitamins with Iron] Diclofenac Sodium Gel [Voltaren 2 gm TOPICAL QID 08/16/19 09/06/19 History Gel] Levothyroxine Sodium [Synthroid] 50 mcg PO QAM 09/04/19 09/06/19 History Megestrol [Megace] 40 mg PO BID 09/04/19 09/06/19 History Allergies Allergy/AdvReac Type Severity Reaction Status Date / Time aspirin AdvReac Unknown Nausea & Verified 09/06/19 14:17 Vomiting ibuprofen [From Motrin] AdvReac Unknown Nausea & Verified 09/06/19 14:17 Vomiting NSAIDS (Non-Steroidal AdvReac Unknown Nausea & Verified 09/06/19 14:17 Anti-Inflamma Vomiting Physical Exam Vitals: Vital Signs Temp Pulse Pulse Pulse Resp BP BP 09/11/19 15:51 95 09/11/19 15:39 98 09/11/19 15:13 98.2 F 102 H 18 156/73 09/11/19 14:00 95 16 124/63 09/11/19 13:30 97 18 123/62 09/11/19 13:00 92 18 122/57 09/11/19 12:30 97 18 134/62 09/11/19 12:05 96 16 128/62 09/11/19 11:50 102 H 16 135/64 09/11/19 11:35 104 H 18 162/72 09/11/19 11:20 100 18 166/79 09/11/19 11:06 99.9 F H 100 16 131/66 09/11/19 07:52 90 09/11/19 07:41 87 09/11/19 06:44 97.3 F L 93 20 136/60 Pulse Ox 09/11/19 15:51 09/11/19 15:39 91 L 09/11/19 15:13 96 09/11/19 14:00 97 09/11/19 13:30 98 09/11/19 13:00 96 09/11/19 12:30 94 L 09/11/19 12:05 94 L 09/11/19 11:50 96 09/11/19 11:35 96 09/11/19 11:20 95 09/11/19 11:06 92 L 09/11/19 07:52 09/11/19 07:41 09/11/19 06:44 94 L Intake and Output 09/11/19 09/11/19 09/11/19 06:59 14:59 22:59 Intake Total 1300 Output Total 5 Balance 1295 Intake: IV 1300 Output: Estimated Blood Loss 5 Other: Voiding Method Incontinent Weight 192.1 kg 192.1 kg GENERAL EXAM: Alert, very pleasant, 59-year-old morbidly obese white female, on 3 L of oxygen with a pulse ox of 96%, comfortable in no apparent distress. HEAD: Normocephalic/atraumatic. EYES: Normal reaction of pupils, equal size. Conjunctiva pink, sclera white. NOSE: Clear with pink turbinates. THROAT: No erythema or exudates. NECK: No masses, no JVD, no thyroid enlargement, no adenopathy. CHEST: No chest wall deformity. Symmetrical expansion. LUNGS: Equal air entry with no crackles, wheeze, rhonchi or dullness. CVS: Regular rate and rhythm, normal S1 and S2, no gallops, no murmurs, no rubs ABDOMEN: Soft, nontender. No hepatosplenomegaly, normal bowel sounds, no guarding or rigidity. Abdominal incisions are clean dry and intact, EXTREMITIES: No clubbing, no edema, no cyanosis, 2+ pulses and upper and lower extremities. MUSCULOSKELETAL: Muscle strength and tone normal. SPINE: No scoliosis or deformity SKIN: No rashes CENTRAL NERVOUS SYSTEM: Alert and oriented -3. No focal deficits, tone is normal in all 4 extremities. PSYCHIATRIC: Alert and oriented -3. Appropriate affect. Intact judgment and insight. Results - Laboratory Findings CBC and BMP: 09/07/19 08:15 Abnormal lab findings: Abnormal Labs 09/11/19 07:09 POC Glucose (mg/dL) 102 H Assessment and Plan Plan: Assessment: #1. Morbid obesity due to excess calories with a body mass index of 88.7 kilos per square meter initially, status post robotic-assisted da Jackelyn laparoscopic sleeve gastrectomy and intraoperative EGD, postoperative day 0 #2. Obstructive sleep apnea, on CPAP with pressure 11-15 cm of water #3. Mild intermittent bronchial asthma, currently stable #4. Chronic dyspnea on exertion, multifactorial, related to chronic bronchial asthma, morbid obesity #5. Depressive disorder #6. Degenerative Joint disease #7. Chronic back pain #8. History of a difficult intubation #9. History of endometrial cancer status post D&C #10. Hypothyroidism #11. Hypertension #12. GERD/reflux #13. Osteoarthritis Plan: Continue albuterol and Symbicort, incentive spirometry, we will obtain a chest x-ray. May use a CPAP with a pressure of 14 centimeters of water at bedtime and as needed. Antibiotics per surgery, and team aspiration precautions, asthma seems to be stable right now, we'll continue to closely follow I performed a history & physical examination of the patient and discussed their management with my nurse practitioner, Delmi Thornton. I reviewed the nurse practitioner's note and agree with the documented findings and plan of care. Lung sounds are positive for diminished breath sounds. The findings and the impression was discussed with the patient. I attest to the documentation by the nurse practitioner. Time with Patient: Greater than 30
[2019-09-11] MEDS: ONDANSETRON 4 MG/2 ML VIAL IVP SCH ×2 (17:52→23:13)
[2019-09-11] MEDS: ceFAZolin 3 GM in SODIUM CHLORIDE 0.9% 100 ML IVPB SCH (17:53)
[2019-09-11] MEDS: HYDROmorphone 1 MG/ML 1 ML SYRINGE IVP PRN (18:05)
--- NOTE | 2019-09-11 19:28 | XR ---
EXAMINATION TYPE: XR chest 1V portable DATE OF EXAM: 09/11/2019 COMPARISON: 08/17/2019 HISTORY: Short of breath TECHNIQUE: Single view FINDINGS: Heart is enlarged. There is no heart failure. There is slight coarsening of the lower lobe pulmonary markings. There is no pulmonary consolidation. Bony thorax is intact. IMPRESSION: Cardiomegaly.. No acute lung disease. Mild pulmonary fibrotic changes. No significant change.
[2019-09-11] MEDS: SYMBICORT 160-4.5 MCG INHALER INHALATION SCH ×2 (20:01→21:44)
[2019-09-11] MEDS ORDERED: MONTELUKAST 10 MG TAB PO SCH (21:00)
[2019-09-11] MEDS ORDERED: CITALOPRAM HYDROBROMIDE 20 MG TAB PO SCH (21:00)
[2019-09-11] MEDS ORDERED: DOXEPIN 25 MG CAP PO SCH (21:00)
[2019-09-11] MEDS: MEGESTROL 40 MG TAB PO SCH (21:35)
[2019-09-12] MEDS: ceFAZolin 3 GM in SODIUM CHLORIDE 0.9% 100 ML IVPB SCH (01:14)
[2019-09-12] MEDS: 0.9% NACL WITH KCL 20 MEQ/L 1,000 ML IV SCH ×2 (01:14→08:44)
[2019-09-12] MEDS: HYDROmorphone 1 MG/ML 1 ML SYRINGE IVP PRN (04:44)
[2019-09-12] MEDS: LACTATED RINGERS 1,000 ML IV SCH (05:05)
[2019-09-12] MEDS: DEXAMETHASONE SOD PHOSPHATE 4 MG/ML 1 ML VIAL IV SCH ×2 (05:32→12:25)
[2019-09-12] MEDS: ONDANSETRON 4 MG/2 ML VIAL IVP SCH ×2 (05:33→12:25)
[2019-09-12] MEDS: HYOSCYAMINE ORAL DROPS 1.875 MG/15 ML BOTTLE PO SCH ×2 (05:33→12:23)
[2019-09-12] MEDS: SIMETHICONE 40 MG/0.6 ML DROPS 2,000 MG/30 ML BOTTLE PO SCH ×2 (05:33→12:22)
[2019-09-12] MEDS ORDERED: LEVOTHYROXINE 50 MCG TAB PO SCH (06:30)
[2019-09-12 07:56] VITALS: BP 143/76; RESP 18; TEMP 97.9
[2019-09-12] MEDS ORDERED: 1: MVI, ADULT NO.4 WITH VIT K 10 ML, THIAMINE 100 MG, FOLIC ACID 1 MG, POTASSIUM CHLORID IV SCH ×6 (08:00)
[2019-09-12 08:17] LABS: Basophils % (A) 0 %; Eosinophils % (A) 0 %; HCT 39.1 % (34.0-46.0); HGB 12.8 gm/dL (11.4-16.0); Lymphocytes # (A) 0.8 k/uL (1.0-4.8); Lymphocytes % (A) 6 %; MCH 32.4 pg (25.0-35.0); MCHC 32.9 g/dL (31.0-37.0); MCV 98.6 fL (80.0-100.0); Mean Platelet Volume 9.1; Monocytes # (A) 0.3 k/uL (0-1.0); Monocytes % (A) 2 %; Neutrophils # (A) 11.4 k/uL (1.3-7.7); Neutrophils % (A) 91 %; Platelet Count 278 k/uL (150-450); RBC 3.96 m/uL (3.80-5.40); RDW 13.1 % (11.5-15.5); WBC 12.6 k/uL (3.8-10.6)
[2019-09-12] MEDS: POTASSIUM CHLORIDE ER 20 MEQ TAB.ER PO SCH ×2 (08:31→10:29)
[2019-09-12] MEDS: SYMBICORT 160-4.5 MCG INHALER INHALATION SCH (08:32)
[2019-09-12] MEDS: ALBUTEROL NEBULIZED 2.5 MG/3 ML INHALATION SCH ×2 (08:32→12:09)
[2019-09-12] MEDS: ENOXAPARIN 60 MG/0.6 ML SYRINGE SQ SCH ×2 (08:49→09:35)
[2019-09-12 08:51] LABS: African American GFR (CKD) >90 (>60 ml/min/1.73 sqM); Anion Gap 10 mmol/L; Blood Urea Nitrogen 14 mg/dL (7-17); Calcium 8.8 mg/dL (8.4-10.2); Carbon Dioxide 25 mmol/L (22-30); Chloride 106 mmol/L (98-107); Magnesium 1.8 mg/dL (1.6-2.3); Non-African American GFR(CKD) >90 (>60 ml/min/1.73 sqM); Phosphorus 2.4 mg/dL (2.5-4.5); Sodium 141 mmol/L (137-145)
[2019-09-12] MEDS: DICLOFENAC SODIUM GEL 100 GM TUBE TOPICAL SCH ×2 (08:55→14:23)
[2019-09-12] MEDS ORDERED: PANTOPRAZOLE 40 MG/10 ML VIAL IV SCH (09:00)
[2019-09-12] MEDS ORDERED: FUROSEMIDE 40 MG TAB PO SCH (09:00)
--- NOTE | 2019-09-12 10:13 | FL ---
EXAMINATION TYPE: FL UGI DATE OF EXAM: 09/12/2019 LIMITED UGI: CLINICAL HISTORY: Morbid Obesity, gastric sleeve surgery yesterday. TECHNIQUE: Limited esophagram is performed utilizing 2 oz of Isovue-370. A total of 12 seconds of fl uoroscopic time was utilized during procedure. 45 spot images are saved to PACS. COMPARISON: CT abdomen and pelvis 5 days ago. FINDINGS: Exam slightly suboptimal study due to patient's large body habitus. The patient swallowed contrast without difficulty or delay. Esophageal peristalsis and motility are within normal limits. There is good flow of contrast along the diaphragmatic hiatus into proximal stomach and subsequent f low through proximal anastomosis into gastric sleeve. There is good flow from distal sleeve and anast omosis into pylorus and duodenal sweep. Patient remains asymptomatic. There is no evidence of contras t extravasation to suggest leak. Cholecystectomy clips are redemonstrated. IMPRESSION: No evidence of leak or significant obstruction status post recent gastric sleeve surgery.
[2019-09-12] MEDS: MEGESTROL 40 MG TAB PO SCH (10:29)
[2019-09-12] MEDS ORDERED: Phosphorus Replacement Protoco 1 EACH MISC MISCELLANE PRN (10:48)
--- NOTE | 2019-09-12 10:51 | P.DS ---
Providers Date of admission: 09/11/19 06:12 Expected date of discharge: 09/12/19 Attending physician: Cindy Gallardo Consults: 09/11/19 11:45 Consult Physician Routine Consulting Provider: Chris Denny Consult Reason/Comments: Severe obstructive sleep apnea Do you want consulting provider notified?: Yes Primary care physician: Rohith Pena Hospital Course: 59-year-old female who underwent robotic-assisted laparoscopic sleeve gastrectomy with Dr. Gallardo on 09/11/2019. Patient is doing well postoperatively without any immediate complications. She is tolerating liquid diet without nausea or vomiting. Pain is controlled on oral medications. Vital signs are stable. She is stable for discharge home today. Please see EMR for further hospital course details. Discharge Diagnosis 1. Morbid obesity due to excess calories 2. Body mass index of 88.7, initial 3. Asthma 4. Neuropathy 5. Hypothyroidism 6. Hypertensive heart disease. 7. Osteoarthritis of the knees. 8. Osteoarthritis of the lower back. 9. Bilateral lower extremity swelling 10. Gastroesophageal reflux disease 11. Endometrial cancer 12. Depressive disorder 13. Obstructive sleep apnea 14. Seizure 15. Peritoneal adhesions lower midline including umbilicus 16. Difficult intubation 17. Moderate to severe hepatomegaly with fatty liver disease Nurse practitioner note has been reviewed by physician. Signing provider agrees with the documented findings, assessment, and plan of care. Patient Condition at Discharge: Stable Plan - Discharge Summary Discharge Rx Participant: Yes New Discharge Prescriptions: New Bisacodyl [Dulcolax] 5 mg PO DAILY PRN #10 tablet.dr PRN Reason: Constipation Simethicone 40 mg/0.6 ml Drops [Mylicon Drops] 40 mg PO PCHS PRN #30 ml PRN Reason: Gas Omeprazole [PriLOSEC] 40 mg PO DAILY #30 capsule. Ondansetron Odt [Zofran Odt] 4 mg PO Q8HR PRN #9 tab PRN Reason: Nausea Acetaminophen Oral Susp [Tylenol] 650 mg PO Q4H PRN #500 ml PRN Reason: Pain No Action Citalopram Hydrobromide [CeleXA] 40 mg PO HS Gabapentin 800 mg PO BID PRN PRN Reason: Pain Doxepin HCl [SINEquan] 50 mg PO HS Potassium Chloride [Klor-Con 20] 20 meq PO DAILY Montelukast [Singulair] 10 mg PO HS Furosemide [Lasix] 40 mg PO DAILY Famotidine [Pepcid] 20 mg PO DAILY PRN PRN Reason: reflux Mirabegron [Myrbetriq] 50 mg PO HS PRN PRN Reason: urinary incontinence Budesonide/Formoterol Fumarate [Symbicort 160-4.5 Mcg Inhaler] 2 puff INHALATION BID Albuterol Sulfate [Proair Hfa] 1 - 2 puff INHALATION Q6HR PRN PRN Reason: Shortness Of Breath Ipratropium-Albuterol Nebulize [Duoneb 0.5 mg-3 mg/3 ml Soln] 3 ml INHALATION QID PRN PRN Reason: ASTHMA Multivitamin with Iron [Multivitamins with Iron] 1 tab PO BID Calcium Carbonate/Vitamin D3 [Caltrate 600 Plus D3 Tablet] 600 mg PO BID Diclofenac Sodium Gel [Voltaren Gel] 2 gm TOPICAL QID Levothyroxine Sodium [Synthroid] 50 mcg PO QAM Megestrol [Megace] 40 mg PO BID Discharge Medication List Citalopram Hydrobromide [CeleXA] 40 mg PO HS 06/04/15 [History] Doxepin HCl [SINEquan] 50 mg PO HS 07/21/17 [History] Furosemide [Lasix] 40 mg PO DAILY 07/21/17 [History] Gabapentin 800 mg PO BID PRN 07/21/17 [History] Montelukast [Singulair] 10 mg PO HS 07/21/17 [History] Potassium Chloride [Klor-Con 20] 20 meq PO DAILY 07/21/17 [History] Famotidine [Pepcid] 20 mg PO DAILY PRN 03/02/19 [History] Mirabegron [Myrbetriq] 50 mg PO HS PRN 03/02/19 [History] Albuterol Sulfate [Proair Hfa] 1 - 2 puff INHALATION Q6HR PRN 03/30/19 [History] Budesonide/Formoterol Fumarate [Symbicort 160-4.5 Mcg Inhaler] 2 puff INHALATION BID 03/30/19 [History] Ipratropium-Albuterol Nebulize [Duoneb 0.5 mg-3 mg/3 ml Soln] 3 ml INHALATION QID PRN 03/30/19 [History] Calcium Carbonate/Vitamin D3 [Caltrate 600 Plus D3 Tablet] 600 mg PO BID 04/19/19 [History] Multivitamin with Iron [Multivitamins with Iron] 1 tab PO BID 04/19/19 [History] Diclofenac Sodium Gel [Voltaren Gel] 2 gm TOPICAL QID 08/16/19 [History] Levothyroxine Sodium [Synthroid] 50 mcg PO QAM 09/04/19 [History] Megestrol [Megace] 40 mg PO BID 09/04/19 [History] Acetaminophen Oral Susp [Tylenol] 650 mg PO Q4H PRN #500 ml 09/12/19 [Rx] Bisacodyl [Dulcolax] 5 mg PO DAILY PRN #10 tablet. 09/12/19 [Rx] Omeprazole [PriLOSEC] 40 mg PO DAILY #30 capsule. 09/12/19 [Rx] Ondansetron Odt [Zofran Odt] 4 mg PO Q8HR PRN #9 tab 09/12/19 [Rx] Simethicone 40 mg/0.6 ml Drops [Mylicon Drops] 40 mg PO PCHS PRN #30 ml 09/12/19 [Rx] [facility](s[facility]Ref[facility] [place] [facility] - 09/14/19 1:00 pm Activity/Diet/Wound Care/Special Instructions: Tylenol as needed for pain No lifting over 4 pounds You may shower. No soaking or tub baths Very light activity until you are reevaluated at your follow up appointment with your surgeon Continue clear liquid diet per bariatric schedule No straws or carbonated beverages Crush or open all medications greater than the size of a tic-tac
[2019-09-12] MEDS ORDERED: SODIUM PHOSPHATE 10 MMOL in SODIUM CHLORIDE 0.9% 250 ML IVPB ONE (11:00)
[2019-09-12 11:17] VITALS: BMI 77.4
[2019-09-12 12:12] VITALS: PULSE 82
--- NOTE | 2019-09-12 13:00 | P.PN ---
Subjective Progress Note Date: 09/12/19 Principal diagnosis: Obstructive sleep apnea, morbid obesity 59-year-old white female patient who follows with Dr. Denny, with history of morbid obesity, combined obstructive and restrictive lung disease related to chronic bronchial asthma, and morbid obesity, depression, history of chronic low back pain, GERD, endometrial cancer status post D&C, who underwent robotic-assisted da Jackelyn laparoscopic sleeve gastrectomy, intraoperative esophagogastroduodenoscopy, postoperative day 0. Patient is currently on 3 L of oxygen the pulse ox of 96%, afebrile, hemodynamically she is stable. On the outpatient basis she was last evaluated 2 years ago for ADEBAYO and has a CPAP with a min pressure of 11 and max pressure of 15 cm of H2O. She would like to get established with a sleep specialist locally and has a upcoming evaluation for sleep apnea with Dr. Juárez. Patient was transferred to regular general medical surgical floor following the procedure, she tolerated surgery well. She is on Symbicort and albuterol inhalers, she is on Kefzol per surgery, he is on Lovenox for DVT prophylaxis. IV fluids with a 20 any Potassium at a rate of 150 ML per hour. We're consulted for history of obstructive sleep apnea. Patient was cleared in the preoperative period by Dr. Conn on 08/17/2019. On 09/12/2019 patient seen in follow-up on the general medical floor, this is postoperative day 1, status post robotic-assisted da Jackelyn laparoscopic sleeve gastrectomy and intraoperative EGD. Patient is doing well, she is awake and alert, oriented 3, she remains on 3 L of oxygen the pulse ox of between 95-97%, denies any shortness of breath, no fever or chills, hemodynamically she still, no tachycardia, no abdominal pain. Abdominal incisions are clean dry and intact. Patient is nothing by mouth and is awaiting a swallow evaluation today. She did wear her CPAP from home last night, for about 6-9 hours, she has good compliance with her device. No other issues overnight, today's labs have been reviewed. Yesterday's chest x-ray showed no acute lung disease, mild pulmonary fibrotic changes no significant change. Objective - Vital Signs Vital signs: Vital Signs Temp 97.9 F 09/12/19 07:00 Pulse 82 09/12/19 12:22 Resp 18 09/12/19 07:00 BP 143/76 09/12/19 07:00 Pulse Ox 95 09/12/19 08:33 Intake & Output 09/11/19 09/12/19 09/12/19 18:59 06:59 18:59 Intake Total 1300 0 Output Total 5 Balance 1295 0 Weight 192.1 kg 192.1 kg Intake: IV 1300 Oral 0 Output: Estimated Blood Loss 5 Other: Voiding Method Incontinent Incontinent # Voids 1 2 - Exam GENERAL EXAM: Alert, very pleasant, 59-year-old morbidly obese white female, on 3 L of oxygen with a pulse ox of 96%, comfortable in no apparent distress. HEAD: Normocephalic/atraumatic. EYES: Normal reaction of pupils, equal size. Conjunctiva pink, sclera white. NOSE: Clear with pink turbinates. THROAT: No erythema or exudates. NECK: No masses, no JVD, no thyroid enlargement, no adenopathy. CHEST: No chest wall deformity. Symmetrical expansion. LUNGS: Equal air entry with no crackles, wheeze, rhonchi or dullness. CVS: Regular rate and rhythm, normal S1 and S2, no gallops, no murmurs, no rubs ABDOMEN: Soft, nontender. No hepatosplenomegaly, normal bowel sounds, no guarding or rigidity. Abdominal incisions are clean dry and intact, EXTREMITIES: No clubbing, no edema, no cyanosis, 2+ pulses and upper and lower extremities. MUSCULOSKELETAL: Muscle strength and tone normal. SPINE: No scoliosis or deformity SKIN: No rashes CENTRAL NERVOUS SYSTEM: Alert and oriented -3. No focal deficits, tone is normal in all 4 extremities. PSYCHIATRIC: Alert and oriented -3. Appropriate affect. Intact judgment and insight. - Labs CBC & Chem 7: 09/12/19 07:30 09/12/19 07:30 Labs: Abnormal Lab Results - Last 24 Hours (Table) 09/12/19 09/12/19 Range/Units 07:30 07:30 WBC 12.6 H (3.8-10.6) k/uL Neutrophils # 11.4 H (1.3-7.7) k/uL Lymphocytes # 0.8 L (1.0-4.8) k/uL Phosphorus 2.4 L (2.5-4.5) mg/dL Assessment and Plan Plan: Assessment: #1. Morbid obesity due to excess calories with a body mass index of 88.7 kilos per square meter initially, status post robotic-assisted da Jackelyn laparoscopic sleeve gastrectomy and intraoperative EGD, postoperative day 0 #2. Obstructive sleep apnea, on CPAP with pressure 11-15 cm of water #3. Mild intermittent bronchial asthma, currently stable #4. Chronic dyspnea on exertion, multifactorial, related to chronic bronchial asthma, morbid obesity #5. Depressive disorder #6. Degenerative Joint disease #7. Chronic back pain #8. History of a difficult intubation #9. History of endometrial cancer status post D&C #10. Hypothyroidism #11. Hypertension #12. GERD/reflux #13. Osteoarthritis Plan: Continue current medical treatment, wean FiO2, encouraged to use incentive spirometry, chest x-ray showed no acute pulmonary process, patient has a CPAP unit from home, and a wart last night, no acute issues overnight, vital signs are stable, awaiting swallow evaluation today and possible discharge home later on today or tomorrow, follow-up with Dr. Conn in the office in 7-10 days. I performed a history & physical examination of the patient and discussed their management with my nurse practitioner, Delmi Thornton. I reviewed the nurse practitioner's note and agree with the documented findings and plan of care. Lung sounds are positive for diminished breath sounds. The findings and the impression was discussed with the patient. I attest to the documentation by the nurse practitioner. Time with Patient: Less than 30
[2019-09-13] MEDS ORDERED: BISACODYL 5 MG TABLET.DR PO PRN (08:00)
== END 2019-09-12 15:21 | disposition home or self-care (01) | DRG 620 ==
LOC: 2ORMAIN 06:12 → 4SSUR 10:59
PROVIDERS: ADMIT Surgery Plastic and Reconstructive Surgery; ATTEND Surgery Plastic and Reconstructive Surgery
PROC: 0DJ08ZZ Inspection of Upper Intestinal Tract, Via Natural or Artificial Opening Endoscopic (ICD-10-PCS; principal; 2019-09-11 07:50)
PROC: 8E0W4CZ Robotic Assisted Procedure of Trunk Region, Percutaneous Endoscopic Approach (ICD-10-PCS; principal; 2019-09-11 07:50)
PROC: 0DB64Z3 Excision of Stomach, Percutaneous Endoscopic Approach, Vertical (ICD-10-PCS; principal; 2019-09-11 07:50)
DX: E66.01 Morbid (severe) obesity due to excess calories (principal); K44.0 Diaphragmatic hernia with obstruction, without gangrene; E03.9 Hypothyroidism, unspecified; F32.9 Major depressive disorder, single episode, unspecified; G47.33 Obstructive sleep apnea (adult) (pediatric); G89.29 Other chronic pain; Z68.45 Body mass index [BMI] 70 or greater, adult; J44.9 Chronic obstructive pulmonary disease, unspecified; C54.1 Malignant neoplasm of endometrium; K21.9 Gastro-esophageal reflux disease without esophagitis; M17.0 Bilateral primary osteoarthritis of knee; M47.9 Spondylosis, unspecified; R56.9 Unspecified convulsions; F41.9 Anxiety disorder, unspecified; I11.9 Hypertensive heart disease without heart failure; K66.0 Peritoneal adhesions (postprocedural) (postinfection); T88.4XXA Failed or difficult intubation, initial encounter; Z96.653 Presence of artificial knee joint, bilateral; K76.0 Fatty (change of) liver, not elsewhere classified; R16.0 Hepatomegaly, not elsewhere classified; G62.9 Polyneuropathy, unspecified; Z79.890 Hormone replacement therapy; Z79.51 Long term (current) use of inhaled steroids; Z79.899 Other long term (current) drug therapy; Z80.3 Family history of malignant neoplasm of breast; Z82.49 Family history of ischemic heart disease and other diseases of the circulatory system; Z83.3 Family history of diabetes mellitus; Z85.42 Personal history of malignant neoplasm of other parts of uterus; Z90.49 Acquired absence of other specified parts of digestive tract; Z79.1 Long term (current) use of non-steroidal anti-inflammatories (NSAID); Z87.440 Personal history of urinary (tract) infections; Z90.89 Acquired absence of other organs; Z98.890 Other specified postprocedural states; Z83.438 Family history of other disorder of lipoprotein metabolism and other lipidemia; Z88.6 Allergy status to analgesic agent
CPT/HCPCS: 71045; 74240; 80051; 82310; 82565; 83735; 84100; 84520; 85025; 86850; 86900; 86901; 88307; 94640

== ENCOUNTER → 2019-09-14 | Outpatient (CLI) | payer BC, OTHER ==
[2019-09-14 13:57] VITALS: BP 145/83; PULSE 86; RESP 16; TEMP 98.5; BMI 76.8
--- NOTE | 2019-09-14 15:50 | P.PN ---
Subjective Progress Note Date: 09/14/19 Nurse visit only Objective - Vital Signs Vital signs: Vital Signs Temp 98.5 F 09/14/19 13:55 Pulse 86 09/14/19 13:55 Resp 16 09/14/19 13:55 BP 145/83 09/14/19 13:55 Pulse Ox Intake & Output 09/13/19 09/14/19 09/14/19 18:59 06:59 18:59 Weight 190.509 kg
== END | disposition home or self-care (01) ==
LOC: BARWHC3 12:59
PROVIDERS: ATTEND Surgery Plastic and Reconstructive Surgery
DX: E66.01 Morbid (severe) obesity due to excess calories (principal); Z71.3 Dietary counseling and surveillance
CPT/HCPCS: 97803; 99211

== ENCOUNTER → 2019-09-28 | Outpatient (CLI) | payer BC, OTHER ==
--- NOTE | 2019-09-28 09:24 | P.PN ---
Subjective Progress Note Date: 09/28/19 Principal diagnosis: Fibrocystic changes left breast Elsa is a 58 -year-old white female seen in consultation for Dr. Pena secondary to a mass felt in her left breast. The patient had a bilateral mammogram performed on . This was negative BIRADS 1. She has been able to feel nodularity in her left breast near the biopsy site for approximately 9 months. It has increased in size and is tender at this time. The patient does not have any other lumps or masses for which she is concerned. She is not complaining of any nipple discharge or skin changes. She is not complaining of any trauma or infection of the breast. Of significance is the fact that she underwent a left breast biopsy in May 2015 and the findings were benign lipoma with focal fat necrosis. The patient has endometrial pre-cancer. She was taking megace. She was recently taken off of this. Dr. Morgan. The patient was playing some tenderness at this time in her left breast in the 12 o'clock position. She states that there is some nodularity via which is this is increased in size. Her last radiographic study was in March 2019 which was no cystic or solid masses of concern noted. She is due for bilateral mammogram at this time. Family history: Maternal Grandmother: Left mastectomy, breast cancer Mother: Stage IV right breast cancer secondary to this at 82 Hormonal History: menarche: 9 menopause: endometrial pre-cancer, hyperdysplasia; only stopped periods with megace BCP: 5 years hormones: megace 1 1/2 years Surgical History: ectopic right knee replacement left breast biopsy Medical History: asthma morbid obesity arthritis GERD Social history: smoke: none alcohol: none drugs: none - Constitutional Constitutional: Denies chills, Denies fever - EENT Eyes: denies blurred vision, denies pain Ears: deny: decreased hearing, tinnitus Ears, nose, mouth and throat: Denies headache, Denies sore throat - Breasts Breasts: bilateral: as per HPI - Cardiovascular Cardiovascular: Reports shortness of breath, Denies chest pain - Respiratory Comment: asthma - Gastrointestinal Gastrointestinal: Denies abdominal pain, Denies diarrhea, Denies nausea, Denies vomiting - Genitourinary (Female) Genitourinary: Reports stress incontinence - Menstruation Comment: abnormal vaginal bleeding - Musculoskeletal Comment: arthritis - Integumentary Integumentary: Denies pruritus, Denies rash - Neurological Neurological: Denies numbness, Denies weakness - Psychiatric Psychiatric: Denies anxiety, Denies depression - Endocrine Endocrine: Reports fatigue, Denies weight change - Hematologic/Lymphatic Comment: none - Allergic/Immunologic Allergic/Immunologic: Reports as per HPI Past Medical History Past Medical History: Asthma, COPD, GERD/Reflux, Osteoarthritis (OA) Additional Past Medical History / Comment(s): Chronic bronchitis, DDD, mid-lower back pain, DJD, arthritis L knee, endometriosis, endometrial pre-cancer, L breast mass-benign, UTIs, [place] uses Cpap, anemia, bilateral carpal tunnel syndrome. History of Any Multi-Drug Resistant Organisms: None Reported Past Surgical History: Breast Surgery, Joint Replacement, Tonsillectomy Additional Past Surgical History / Comment(s): BRONCHOSCOPY, COLONOSCOPY, EXPLORATORY LAP FOR ECTOPIC -RUPTURED FALLOPIAN TUBE WITH REMOVAL, D & C'S, RIGHT TOTAL KNEE (2013), L BREAST BX-BENIGN. Past Anesthesia/Blood Transfusion Reactions: Motion Sickness, Postoperative Nausea & Vomiting (PONV) Past Psychological History: Anxiety, Depression Additional Psychological History / Comment(s): Pt states she has had anxiety and depression since her spouse less than a year ago. She has been started on meds to help her with this and they have. She resides alone. She uses a wheeled walker to ambulate. She drives. Smoking Status: Never smoker Past Alcohol Use History: None Reported Past Drug Use History: None Reported Objective - Vital Signs Vital signs: Vital Signs Temp 98.4 F 09/28/19 09:00 Pulse 83 09/28/19 09:00 Resp 18 09/28/19 09:00 BP 129/76 09/28/19 09:00 Pulse Ox 95 09/28/19 09:00 Intake & Output 09/27/19 09/28/19 09/28/19 18:59 06:59 18:59 Weight 182.798 kg - Exam BMI 73.7 - Constitutional General appearance: Present: morbidly obese - EENT Eyes: Present: EOMI ENT: Present: hearing grossly normal - Neck Neck: Present: normal ROM - Respiratory Respiratory: bilateral: CTA - Cardiovascular Rhythm: regular Heart sounds: normal: S1, S2 - Gastrointestinal General gastrointestinal: Present: soft - Integumentary Integumentary: Present: normal turgor - Musculoskeletal Musculoskeletal Comment(s): in wheel chair - Psychiatric Psychiatric: Present: A&O x's 3, appropriate affect, intact judgment & insight - Additional findings Additional findings: Breast examination: Well-healed scar left breast from prior biopsy Right breast: Fibrocystic changes no dominant masses or nodules of concern Right axilla: No adenopathy of concern Left breast: Fibrocystic changes no dominant masses or nodules of concern Left axilla: No adenopathy of concern Assessment and Plan Assessment: Impression: asthma morbid obesity arthritis GERD Fibrocystic breast changes Plan: 1. Bilateral mammogram due at this time 2. Follow-up after bilateral mammogram CC: Dr. Pena encounter: 20 minutes > 50% of time spent in planning and counselling
[2019-09-29 09:59] VITALS: BP 129/76; PULSE 83; RESP 18; TEMP 98.4
== END | disposition home or self-care (01) ==
LOC: WWCWWP 08:44
PROVIDERS: ATTEND Surgery
DX: Z53.9 Procedure and treatment not carried out, unspecified reason (principal)

== ENCOUNTER → 2019-10-09 | Outpatient (CLI) | payer BC, OTHER ==
[2019-10-09 13:21] LABS: HCT 40.1 % (34.0-46.0); HGB 13.7 gm/dL (11.4-16.0); MCH 32.1 pg (25.0-35.0); MCHC 34.1 g/dL (31.0-37.0); MCV 94.1 fL (80.0-100.0); Mean Platelet Volume 9.7; Platelet Count 263 k/uL (150-450); RBC 4.26 m/uL (3.80-5.40); RDW 13.3 % (11.5-15.5); WBC 9.3 k/uL (3.8-10.6)
[2019-10-09 20:31] LABS: % Iron Saturation 22.93 (12.00-45.00); African American GFR (CKD) 92.9 (60.0-200.0); Albumin 4.3 g/dL (3.80-4.90); Albumin/Globulin Ratio 1.72 (1.60-3.17); Anion Gap 8.1 mmol/L (4.00-12.00); BUN/Creat Ratio 18.75 Ratio (12.00-20.00); Calcium 9.4 mg/dL (8.7-10.3); Carbon Dioxide 28.9 mmol/L (21.6-31.8); Chol/HDL Ratio 5.57; Globulin 2.5 g/dL (1.6-3.3); LDL Cholesterol,Calculated 75.6 mg/dL (0.0-131.0); Magnesium 1.7 mg/dL (1.5-2.4); Non-African American GFR(CKD) 80.1 (60.0-200.0); Phosphorus 2.8 mg/dL (2.4-5.1); Potassium 3.4 mmol/L (3.5-5.5); Total Bilirubin 1.4 mg/dL (0.3-1.2); Total Protein 6.8 g/dL (6.2-8.2); VLDL Calculation 52.4 mg/dL (5.00-40.00)
[2019-10-09 20:41] LABS: Ferritin 285.6 ng/mL (10.0-291.0)
[2019-10-09 20:44] LABS: Folate, Serum 15.5 ng/mL
[2019-10-09 22:18] LABS: Hemoglobin A1C 5.8 % (4.0-6.0)
[2019-10-10 02:21] LABS: INR 1.04 (0.90-1.11); Partial Thromboplastin Time 29.8 sec (24.7-29.9); Prothrombin Time 11.1 sec (9.9-11.9)
[2019-10-10 12:50] LABS: Zinc, Serum 61 ug/dL (60-130)
[2019-10-11 08:30] LABS: Vitamin A 43 ug/dL (38-106)
[2019-10-11 10:54] LABS: Vit B1(Thiamine) 53 ug/L (38-122)
== END | disposition home or self-care (01) ==
LOC: LABWHC1 11:56
PROVIDERS: ATTEND Surgery Plastic and Reconstructive Surgery
DX: D50.9 Iron deficiency anemia, unspecified (principal); E21.1 Secondary hyperparathyroidism, not elsewhere classified; E44.0 Moderate protein-calorie malnutrition; E55.9 Vitamin D deficiency, unspecified; K74.1 Hepatic sclerosis; N19 Unspecified kidney failure; K50.90 Crohn's disease, unspecified, without complications
CPT/HCPCS: 36415; 80053; 80061; 82306; 82525; 82607; 82728; 82746; 83036; 83540; 83550; 83735; 83970; 84100; 84134; 84255; 84425; 84443; 84590; 84630; 85027; 85610; 85730

== ENCOUNTER → 2019-11-21 | Outpatient (CLI) | payer BC, OTHER ==
--- NOTE | 2019-11-22 10:12 | MM ---
Reason for exam: screening (asymptomatic). Last mammogram was performed 1 year and 2 months ago. History: Patient is postmenopausal and is nulliparous. Family history of breast cancer in maternal grandmother at age 53 and breast cancer in mother at age 81. Benign excisional biopsy of the left breast, 2016. Physical Findings: A clinical breast exam by your physician is recommended on an annual basis and results should be correlated with mammographic findings. MG 3D Screening Mammo W/Cad Bilateral CC, MLO, and XCCL view(s) were taken. Prior study comparison: September 28, 2018, bilateral MG 3d screening mammo w/cad. June 30, 2017, bilateral MG 3d screening mammo w/cad. There are scattered fibroglandular densities. There is no discrete abnormality. No significant changes when compared with prior studies. ASSESSMENT: Negative, BI-RAD 1 RECOMMENDATION: Routine screening mammogram of both breasts in 1 year.
== END | disposition home or self-care (01) ==
LOC: RADMAMWWP 07:18
PROVIDERS: ATTEND Surgery
DX: Z12.31 Encounter for screening mammogram for malignant neoplasm of breast (principal)
CPT/HCPCS: 77063; 77067

== ENCOUNTER → 2019-11-24 | Outpatient (CLI) | payer BC, OTHER ==
[2019-11-24 08:56] VITALS: BP 126/73; PULSE 72; RESP 20; TEMP 98.3
--- NOTE | 2019-11-24 09:24 | P.PN ---
Subjective Progress Note Date: 11/24/19 Principal diagnosis: fibrocystic breast changes Fibrocystic changes left breast Elsa is a 58 -year-old white female seen in consultation for Dr. Pena secondary to a mass felt in her left breast. The patient had a bilateral mammogram performed on . This was negative BIRADS 1. She has been able to feel nodularity in her left breast near the biopsy site for approximately 9 months. It has increased in size and is tender at this time. The patient does not have any other lumps or masses for which she is concerned. She is not complaining of any nipple discharge or skin changes. She is not complaining of any trauma or infection of the breast. Of significance is the fact that she underwent a left breast biopsy in May 2015 and the findings were benign lipoma with focal fat necrosis. The patient has endometrial pre-cancer. She was taking megace. She was recently taken off of this. Dr. Morgan. The patient was complaining of some tenderness at this time in her left breast in the 12 o'clock position. She states that there is some nodularity via which is this is increased in size. Her last radiographic study was in March 2019 which was no cystic or solid masses of concern noted. She is due for bilateral mammogram at this time. She has had a bilateral mammogram performed on 9119 which is negative BIRADS 1. Caffeine: Negative : Negative Theophylline: seldom Family history: Maternal Grandmother: Left mastectomy, breast cancer Mother: Stage IV right breast cancer secondary to this at 82 Hormonal History: menarche: 9 menopause: endometrial pre-cancer, hyperdysplasia; only stopped periods with megace BCP: 5 years hormones: megace 1 1/2 years Surgical History: ectopic right knee replacement left breast biopsy Medical History: asthma morbid obesity arthritis GERD Social history: smoke: none alcohol: none drugs: none - Constitutional Constitutional: Denies chills, Denies fever - EENT Eyes: denies blurred vision, denies pain Ears: deny: decreased hearing, tinnitus Ears, nose, mouth and throat: Denies headache, Denies sore throat - Breasts Breasts: bilateral: as per HPI - Cardiovascular Cardiovascular: Reports shortness of breath, Denies chest pain - Respiratory Comment: asthma - Gastrointestinal Gastrointestinal: Denies abdominal pain, Denies diarrhea, Denies nausea, Denies vomiting - Genitourinary (Female) Genitourinary: Reports stress incontinence - Menstruation Comment: abnormal vaginal bleeding - Musculoskeletal Comment: arthritis - Integumentary Integumentary: Denies pruritus, Denies rash - Neurological Neurological: Denies numbness, Denies weakness - Psychiatric Psychiatric: Denies anxiety, Denies depression - Endocrine Endocrine: Reports fatigue, Denies weight change - Hematologic/Lymphatic Comment: none - Allergic/Immunologic Allergic/Immunologic: Reports as per HPI Objective - Vital Signs Vital signs: Vital Signs Temp 98.3 F 11/24/19 08:54 Pulse 72 11/24/19 08:54 Resp 20 11/24/19 08:54 BP 126/73 11/24/19 08:54 Pulse Ox 96 11/24/19 08:54 Intake & Output 11/23/19 11/24/19 11/24/19 18:59 06:59 18:59 Weight 179.623 kg - Exam BMI 72.4 - Constitutional General appearance: Present: morbidly obese - EENT Eyes: Present: EOMI ENT: Present: hearing grossly normal - Neck Neck: Present: normal ROM - Respiratory Respiratory: bilateral: CTA - Cardiovascular Rhythm: regular Heart sounds: normal: S1, S2 - Integumentary Integumentary: Present: normal turgor - Musculoskeletal Musculoskeletal Comment(s): uses a wheel chair - Psychiatric Psychiatric: Present: A&O x's 3, appropriate affect, intact judgment & insight - Additional findings Additional findings: Left breast examination: Well-healed scar from prior biopsy There is fibrocystic change and some scar of the prior biopsy site but no dominant masses or nodules of concern Assessment and Plan Assessment: Impression/plan: Asthma Arthritis GERD Fibrocystic breast changes morbid obesity Plan: 1. Bilateral mammogram in 1 year 2. Follow-up sooner if she notes any changes in her breast otherwise follow-up in near 3. Patient is presently taking secondary to some free cancer on a cervical biopsy CC: DR. Pena
== END | disposition home or self-care (01) ==
LOC: WWCWWP 08:36
PROVIDERS: ATTEND Surgery
DX: Z53.9 Procedure and treatment not carried out, unspecified reason (principal)

== ENCOUNTER → 2019-12-20 | Outpatient (CLI) | payer BC, OTHER ==
--- NOTE | 2019-12-20 14:08 | P.PN ---
Subjective Progress Note Date: 12/20/19 She is s/p sleeve. She has been kay foods. She reports weight loss of 70 pounds. She is not able to exercise. She is taking ultrapotency Alive. No GERD. She is taking omeprazole and mylicon. She is taking pepcid and has no problems. She takes Mylicon as needed. Her blood pressure is 104/102. Her CPAP machine is adjusted and is less. No other adjustments of her medications. Needs new labs. She has pannus with moderate sweating and redness of her skin. She reports moisture and boil for her pannus. Recommend panniculectomy for moderate sized pannus. Take stool softener as needed Objective - Vital Signs Vital signs: Intake & Output 12/19/19 12/20/19 12/20/19 18:59 06:59 18:59 Weight 172.365 kg
[2019-12-20 14:58] VITALS: BP 142/102; PULSE 92; RESP 18; TEMP 98.5; BMI 69.5
[2019-12-20 15:56] LABS: HCT 41.5 % (34.0-46.0); HGB 13.3 gm/dL (11.4-16.0); MCH 30.6 pg (25.0-35.0); MCV 95.9 fL (80.0-100.0); Mean Platelet Volume 8.5; Platelet Count 320 k/uL (150-450); RBC 4.33 m/uL (3.80-5.40); RDW 13.1 % (11.5-15.5); WBC 9.9 k/uL (3.8-10.6)
[2019-12-21 00:04] LABS: INR 0.98 (0.90-1.11); Partial Thromboplastin Time 35.1 sec (24.7-29.9); Prothrombin Time 10.5 sec (9.9-11.9)
[2019-12-21 02:07] LABS: Hemoglobin A1C 5.9 % (4.0-6.0)
[2019-12-21 02:58] LABS: % Iron Saturation 27.27 (12.00-45.00); African American GFR (CKD) 92.9 (60.0-200.0); Albumin 4.6 g/dL (3.80-4.90); Albumin/Globulin Ratio 1.64 (1.60-3.17); Anion Gap 11.9 mmol/L (4.00-12.00); BUN/Creat Ratio 16.25 Ratio (12.00-20.00); Calcium 9.8 mg/dL (8.7-10.3); Carbon Dioxide 24.1 mmol/L (21.6-31.8); Chol/HDL Ratio 4.56; Globulin 2.8 g/dL (1.6-3.3); Magnesium 1.9 mg/dL (1.5-2.4); Non-African American GFR(CKD) 80.1 (60.0-200.0); Phosphorus 3.8 mg/dL (2.4-5.1); Potassium 4.3 mmol/L (3.5-5.5); Total Bilirubin 1.4 mg/dL (0.3-1.2); Total Protein 7.4 g/dL (6.2-8.2)
[2019-12-21 03:09] LABS: Ferritin 267.4 ng/mL (10.0-291.0)
[2019-12-21 04:27] LABS: Folate, Serum 16.8 ng/mL
[2019-12-21 14:13] LABS: Zinc, Serum 69 ug/dL (60-130)
[2019-12-22 06:58] LABS: Vitamin A 67 ug/dL (38-106)
[2019-12-22 07:52] LABS: Vit B1(Thiamine) >160 ug/L (38-122)
== END | disposition home or self-care (01) ==
LOC: BARWHC3 12:50
PROVIDERS: ATTEND Surgery Plastic and Reconstructive Surgery
DX: Z48.815 Encounter for surgical aftercare following surgery on the digestive system (principal); E66.01 Morbid (severe) obesity due to excess calories; E89.1 Postprocedural hypoinsulinemia; D50.8 Other iron deficiency anemias; E44.0 Moderate protein-calorie malnutrition; E55.9 Vitamin D deficiency, unspecified; K74.1 Hepatic sclerosis; N19 Unspecified kidney failure; K50.90 Crohn's disease, unspecified, without complications; Z98.84 Bariatric surgery status
CPT/HCPCS: 80053; 80061; 82306; 82525; 82607; 82728; 82746; 83036; 83540; 83550; 83735; 83970; 84100; 84134; 84255; 84425; 84443; 84590; 84630; 85027; 85610; 85730; 97803; 99211

== ENCOUNTER → 2020-04-02 | Outpatient (CLI) | payer BC, OTHER ==
[2020-04-02 13:59] LABS: HCT 41.4 % (34.0-46.0); HGB 13.9 gm/dL (11.4-16.0); MCH 31.7 pg (25.0-35.0); MCHC 33.6 g/dL (31.0-37.0); MCV 94.1 fL (80.0-100.0); Mean Platelet Volume 7.9; Platelet Count 397 k/uL (150-450); RBC 4.39 m/uL (3.80-5.40); RDW 12.7 % (11.5-15.5); WBC 10.3 k/uL (3.8-10.6)
[2020-04-02 14:10] LABS: INR 0.9 (<1.2); Partial Thromboplastin Time 23.8 sec (22.0-30.0)
[2020-04-02 22:40] LABS: Hemoglobin A1C 5.6 % (4.0-6.0)
[2020-04-02 23:10] LABS: % Iron Saturation 28.83 (12.00-45.00); African American GFR (CKD) 70.9 (60.0-200.0); Albumin 4.8 g/dL (3.80-4.90); Albumin/Globulin Ratio 1.85 (1.60-3.17); Anion Gap 14.9 mmol/L (4.00-12.00); Carbon Dioxide 23.1 mmol/L (21.6-31.8); Chol/HDL Ratio 4.97; Globulin 2.6 g/dL (1.6-3.3); Magnesium 2.1 mg/dL (1.5-2.4); Non-African American GFR(CKD) 61.2 (60.0-200.0); Phosphorus 4.7 mg/dL (2.4-5.1); Potassium 4.8 mmol/L (3.5-5.5); Total Bilirubin 1.4 mg/dL (0.3-1.2); Total Protein 7.4 g/dL (6.2-8.2)
[2020-04-02 23:17] LABS: Ferritin 170.2 ng/mL (10.0-291.0)
[2020-04-03 14:57] LABS: Zinc, Serum 90 ug/dL (60-130)
[2020-04-04 07:38] LABS: Vit B1(Thiamine) 77 ug/L (38-122)
== END | disposition home or self-care (01) ==
LOC: LABWHC1 12:37
PROVIDERS: ATTEND Surgery Plastic and Reconstructive Surgery
DX: D50.9 Iron deficiency anemia, unspecified (principal); K90.89 Other intestinal malabsorption; E55.9 Vitamin D deficiency, unspecified; K50.90 Crohn's disease, unspecified, without complications; N19 Unspecified kidney failure; E89.1 Postprocedural hypoinsulinemia
CPT/HCPCS: 36415; 80053; 80061; 82306; 82525; 82607; 82728; 82746; 83036; 83540; 83550; 83735; 83970; 84100; 84134; 84255; 84425; 84443; 84590; 84630; 85027; 85610; 85730

== ENCOUNTER → 2020-04-03 | Outpatient (CLI) | payer BC, OTHER ==
[2020-04-03 15:07] VITALS: BP 140/85; PULSE 74; RESP 20; TEMP 98.1; BMI 66.9
--- NOTE | 2020-04-03 15:29 | P.PN ---
Subjective Progress Note Date: 04/03/20 DATE OF SERVICE: 04/03/2020 CHIEF COMPLAINT: Status post sleeve gastrectomy HISTORY OF PRESENT ILLNESS: Elsa Corrales is a 59-year-old female who is status post sleeve gastrectomy, 09/11/19. She is over 6 months out. She got her knee done in January, now 2 months. She has stopped journalizing her foods. She reports slowed weight loss. She is more mobile. No dysphagia. No gastroesophageal reflux disease. At height of 5 feet 2 inches, her ideal body weight is 135 pounds. Highest weight 449 pounds, BMI 82.3. Today she comes in 365 pounds from 379 pounds, over 3 months ago. She has lost 14 pounds in over 3 months. Her BMI is 66.9. Lifetime weight loss of 84 pounds. Her lifetime percent excess weight loss is 27%. She is 230 pounds overweight. PHYSICAL EXAM: VITAL SIGNS: Height 5 foot 2 inches, weight 365 pounds. BMI 66.9 Vital Signs Temp 98.1 F 04/03/20 15:04 Pulse 74 04/03/20 15:04 Resp 20 04/03/20 15:04 BP 140/85 04/03/20 15:04 Pulse Ox Intake & Output 04/03/20 04/03/20 04/04/20 06:59 18:59 06:59 Weight 166.015 kg GENERAL: Well-developed in no acute distress. HEENT: No scleral icterus. Extraocular movements grossly intact. Hears conversational speech. No nasal drainage. NECK: Supple without lymphadenopathy. CHEST: Nonlabored respirations with equal bilateral excursions. CARDIOVASCULAR: Distal 2+ pulses. ABDOMEN: Soft, non-tender, non-distended MUSCULOSKELETAL: No clubbing, cyanosis. NEURO: No focal or lateralizing signs. Cranial nerves 2 through 12 grossly within normal limits. PSYCH: Appropriate affect. Alert and oriented to person, place and time. SKIN: Good skin turgor. Well perfused. LABS: Reviewed. Triglycerides is elevated. HDL is low. Vitamin levels are within normal limit. ASSESSMENT: 1. Morbid obesity due to excess calories 2. Body mass index 80.5, highest now 66.9 3. Asthma 4. Neuropathy 5. Hypothyroidism 6. Hypertensive heart disease. 7. Osteoarthritis of the knees. 8. Osteoarthritis of the lower back. 9. Bilateral lower extremity swelling 10. Gastroesophageal reflux disease 11. Endometrial cancer 12. Depressive disorder 13. Obstructive sleep apnea 14. Seizure 15. Hypertriglyceridemia 16. Chronic gastritis 17. Zinc deficiency 18. Secondary hyperparathyroidism 19. Status post sleeve gastrectomy PLAN: 1. Recommend food diary journal reviewed. 2. Recommend protein intake 65+ grams daily. Objective - Vital Signs Vital signs: Vital Signs Temp 98.1 F 04/03/20 15:04 Pulse 74 04/03/20 15:04 Resp 20 04/03/20 15:04 BP 140/85 04/03/20 15:04 Pulse Ox Intake & Output 04/02/20 04/03/20 04/03/20 18:59 06:59 18:59 Weight 166.015 kg
== END | disposition home or self-care (01) ==
LOC: BARWHC3 13:05
PROVIDERS: ATTEND Surgery Plastic and Reconstructive Surgery
DX: E66.01 Morbid (severe) obesity due to excess calories (principal); J45.909 Unspecified asthma, uncomplicated; G62.9 Polyneuropathy, unspecified; E03.9 Hypothyroidism, unspecified; I11.9 Hypertensive heart disease without heart failure; M17.0 Bilateral primary osteoarthritis of knee; M79.89 Other specified soft tissue disorders; K21.9 Gastro-esophageal reflux disease without esophagitis; C54.1 Malignant neoplasm of endometrium; F32.9 Major depressive disorder, single episode, unspecified; G47.33 Obstructive sleep apnea (adult) (pediatric); R56.9 Unspecified convulsions; E78.1 Pure hyperglyceridemia; K29.50 Unspecified chronic gastritis without bleeding; N25.81 Secondary hyperparathyroidism of renal origin; E60 Dietary zinc deficiency; Z68.44 Body mass index [BMI] 60.0-69.9, adult; Z98.84 Bariatric surgery status
CPT/HCPCS: 97803; 99211

== ENCOUNTER → 2021-07-21 | Outpatient (CLI) | payer BC, OTHER ==
--- NOTE | 2021-07-22 09:46 | MM ---
Reason for exam: screening (asymptomatic). Last mammogram was performed 1 year and 8 months ago. History: Patient is postmenopausal and is nulliparous. Family history of breast cancer in maternal grandmother at age 53 and breast cancer in mother at age 81. Benign excisional biopsy of the left breast, 2016. Physical Findings: A clinical breast exam by your physician is recommended on an annual basis and results should be correlated with mammographic findings. MG 3D Screening Mammo W/Cad Bilateral CC and MLO view(s) were taken. Prior study comparison: November 21, 2019, bilateral MG 3d screening mammo w/cad. September 28, 2018, bilateral MG 3d screening mammo w/cad. June 30, 2017, bilateral MG 3d screening mammo w/cad. The breast tissue is almost entirely fat. Finding #1: There is are two oval masses measuring 6mm and 10 mm located 4 cm and 10cm from the nipple in the anterior, central, middle position of the left breast. Finding #2: There are typically benign round calcifications in both breasts. There is a chronic nodularity in the right outer breast, stable. #1 is New finding since November 21, 2019, September 28, 2018, and June 30, 2017. ASSESSMENT: Incomplete: need additional imaging evaluation, BI-RAD 0 RECOMMENDATION: Special view mammogram and ultrasound of the left breast. [facility] will attempt to contact patient to return for supplemental views and ultrasound. [place]
== END | disposition home or self-care (01) ==
LOC: RADMAMWWP 15:31
PROVIDERS: ATTEND Obstetrics & Gynecology
DX: Z12.31 Encounter for screening mammogram for malignant neoplasm of breast (principal); Z78.0 Asymptomatic menopausal state; Z80.3 Family history of malignant neoplasm of breast
CPT/HCPCS: 77063; 77067

== ENCOUNTER → 2021-07-25 | Outpatient (CLI) | payer BC, OTHER ==
--- NOTE | 2021-07-25 10:17 | MM ---
Reason for exam: additional evaluation requested from abnormal screening. Last mammogram was performed less than 1 month ago. History: Patient is postmenopausal and is nulliparous. Family history of breast cancer in maternal grandmother at age 53 and breast cancer in mother at age 81. Benign excisional biopsy of the left breast, 2016. Physical Findings: A clinical breast exam by your physician is recommended on an annual basis and results should be correlated with mammographic findings. MG 3D Work Up W/Cad LT Spot compression CC, spot compression MLO, and LM view(s) were taken of the left breast. Prior study comparison: July 21, 2021, bilateral MG 3d screening mammo w/cad. November 21, 2019, bilateral MG 3d screening mammo w/cad. There are scattered fibroglandular densities. Two nodular densities upper left breast 10.8cm from nipple and 6.8cm from nipple. Results were given to the patient verbally at the time of the exam. ASSESSMENT: Incomplete: need additional imaging evaluation, BI-RAD 0 RECOMMENDATION: Ultrasound of the left breast.
--- NOTE | 2021-07-25 10:18 | USB ---
Reason for exam: additional evaluation requested from abnormal screening. History: Patient is postmenopausal and is nulliparous. Family history of breast cancer in maternal grandmother at age 53 and breast cancer in mother at age 81. Benign excisional biopsy of the left breast, 2016. Physical Findings: A clinical breast exam by your physician is recommended on an annual basis and results should be correlated with mammographic findings. US Breast Workup Limited LT Left limited breast ultrasound including focal area of concern, retroareolar and axilla demonstrates no cystic or solid lesion seen. Very large breasts. Results were given to the patient verbally at the time of the exam. ASSESSMENT: Probably benign, BI-RAD 3 RECOMMENDATION: Follow-up diagnostic mammogram of the left breast in 6 months.
== END | disposition home or self-care (01) ==
LOC: RADMAMWWP 09:16
PROVIDERS: ATTEND Obstetrics & Gynecology
DX: R92.8 Other abnormal and inconclusive findings on diagnostic imaging of breast (principal); Z78.0 Asymptomatic menopausal state; Z80.3 Family history of malignant neoplasm of breast
CPT/HCPCS: 77061; 77065

== ENCOUNTER → 2021-10-09 | Outpatient (CLI) | payer BC, OTHER ==
--- NOTE | 2021-10-10 16:24 | BD ---
EXAMINATION TYPE: Axial Bone Density DATE OF EXAM: 10/09/2021 COMPARISON: NONE CLINICAL HISTORY: 61 years year old Female. ICD-10 CODE: Z78.0 MENOPAUSAL STATE Height: 62 Weight: 350 FRAX RISK QUESTIONS: Alcohol (3 or more units per day): NO Family History (Parent hip fracture): NO Glucocorticoids (More than 3mos): NO History of Fracture in Adulthood: NO Secondary Osteoporosis: 1. Type 1 Diabetes: NO 2. Hyperthyroidism: NO 3. Menopause before 45: NO 4. Malnutrition: NO 5. Chronic liver disease: FATTY LIVER Rheumatoid Arthritis: NO Current Tobacco Use: NO RISK FACTORS HISTORY OF: Hip Fracture (Right/Left): NO Spine Fracture: NO History of Wrist Fracture: NO Surgery to Spine/Hip(right/left)/Wrist (right/left): NO Family History of Osteoporosis: MOTHER Active: NO Diet low in dairy products/other sources of calcium: YES Postmenopausal woman: NO Take estrogen and/or progesterone medications: NO Lost more than 2 inches in height since high school: NO Frequent falls: NO Poor Health: NO Hyperparathyroidism: NO Adrenal Insufficiency: NO MEDICATIONS: Prednisone or other steroids: NO Thyroid Medications: LEVOTHYROXIN How Long: PAST 2 YES Osteoporosis Medications: NO Additional Medications: INHALER FOR ASTHMA, REFLUX MEDS, DEPRESSION, MULTI VIT., VIT D Additional History: EXAM MEASUREMENTS: Bone mineral densitometry was performed using the [employer] System. Bone mineral density as measured about the Lumbar spine is: ----- L1-L4(G/cm2): 1.325 T Score Values are as follows: ----- L1: 1.0 ----- L2: 0.2 ----- L3: 1.4 ----- L4: 1.6 ----- L1-L4: 1.2 BASELINE STUDY Bone mineral density about the R hip (g/cm2): 0.957 Bone mineral density about the L hip (g/cm2): 1.004 T Score values are as follows: -----R Neck: -0.6 -----L Neck: -0.2 -----R Total: 0.7 -----L Total: 0.7 BASELINE STUDY FRAX%s: The graph provided illustrates a 5.1% chance for a major osteoporotic fx and a 0.2% chance fo r the hips probability for fx in 10 years time. IMPRESSION: Normal (Values between +1 and -1 indicate normal bone mass). Consider repeating this study in 5 year s or sooner if there is some new clinical indication. NOTE: T-SCORE=SD OF THE YOUNG ADULT MEAN.
== END | disposition home or self-care (01) ==
LOC: RADBDWWP 09:31
PROVIDERS: ATTEND Family Medicine
DX: Z13.820 Encounter for screening for osteoporosis (principal); Z78.0 Asymptomatic menopausal state
CPT/HCPCS: 77080

== ENCOUNTER → 2022-01-13 | Outpatient (CLI) | payer BC, OTHER ==
--- NOTE | 2022-01-13 08:04 | MM ---
Reason for Exam: Follow-up at short interval from prior study. Last screening mammogram was performed 5 month(s) ago. Patient History: Menarche at age 10. Patient has no children. Postmenopausal. 2016, Benign Excisional Biopsy on the left side. Maternal grandmother had breast cancer, age 53. Maternal cousin had breast cancer at or over age 50. Mother had breast cancer, age 81. Risk Values: Kori 5 year model risk: 3.9%. NCI Lifetime model risk: 16.7%. Prior Study Comparison: 11/21/2019 Bilateral Screening Mammogram, [facility]. 07/21/2021 Bilateral Screening Mammogram, [facility]. 07/25/2021 Left Diagnostic Mammogram, [facility]. Tissue Density: Left: There are scattered fibroglandular densities. Findings: Analyzed By CAD. No suspicious calcifications within the left breast. There are 2 stable nodular densities in the upper left breast approximately 10 and 7 cm from the nipple. Overall Assessment: Incomplete: need additional imaging evaluation, BI-RAD 0 Management: Diagnostic Breast Ultrasound of the left breast. A clinical breast exam by your physician is recommended on an annual basis and results should be correlated with mammographic findings. This exam should not preclude additional follow-up of suspicious palpable abnormalities. Results were given to the patient verbally at the time of exam. Electronically signed and approved by: Tru Dias D.O.
--- NOTE | 2022-01-13 08:14 | USB ---
Reason for Exam: Additional evaluation requested from abnormal screening. Patient History: Menarche at age 10. Patient has no children. Postmenopausal. 2016, Benign Excisional Biopsy on the left side. Maternal grandmother had breast cancer, age 53. Maternal cousin had breast cancer at or over age 50. Mother had breast cancer, age 81. Risk Values: Kori 5 year model risk: 3.9%. NCI Lifetime model risk: 16.7%. Technique: Method: Targeted. Prior Study Comparison: 11/21/2019 Bilateral Screening Mammogram, [facility]. 07/21/2021 Bilateral Screening Mammogram, [facility]. 07/25/2021 Left Diagnostic Mammogram, [facility]. Findings: The upper outer quadrant of the left breast, the axilla of the left breast and the retroareolar of the left breast were scanned. Limited left breast ultrasound from 12-3 o'clock with evaluation of the nipple and axillary tail was performed. No solid or cystic mass identified again. Very large breasts. Overall Assessment: Benign, BI-RAD 2 Management: Screening Mammogram of both breasts in 1 year. A clinical breast exam by your physician is recommended on an annual basis and results should be correlated with mammographic findings. This exam should not preclude additional follow-up of suspicious palpable abnormalities. ??Results were given to the patient verbally at the time of exam. Electronically signed and approved by: Tru Dias D.O.
== END | disposition home or self-care (01) ==
LOC: RADMAMWWP 07:11
PROVIDERS: ATTEND Obstetrics & Gynecology
DX: R92.8 Other abnormal and inconclusive findings on diagnostic imaging of breast (principal); Z78.0 Asymptomatic menopausal state; Z80.3 Family history of malignant neoplasm of breast
CPT/HCPCS: 77061; 77065

== ENCOUNTER → 2022-08-06 | Outpatient (CLI) | payer BC, OTHER ==
--- NOTE | 2022-08-07 18:15 | MM ---
Reason for Exam: Screening (asymptomatic). Last screening mammogram was performed 12 month(s) ago. Patient History: Menarche at age 10. Patient has no children. Postmenopausal. 2016, Benign Excisional Biopsy on the left side. Maternal grandmother had breast cancer, age 53. Maternal cousin had breast cancer, age 65. Mother had breast cancer, age 81. Risk Values: Kori 5 year model risk: 3.9%. NCI Lifetime model risk: 16.7%. Prior Study Comparison: 07/21/2021 Bilateral Screening Mammogram, LOCATED [facility]IN [facility]. 07/25/2021 Left Diagnostic Mammogram, [facility]. 01/13/2022 Left MG 3D diag mammo w/cad LT, [facility]. Tissue Density: There are scattered fibroglandular densities. Findings: Analyzed By CAD. There is no suspicious group of microcalcifications or new suspicious mass in either breast. Overall Assessment: Negative, BI-RAD 1 Management: Screening Mammogram of both breasts in 1 year. See note below regarding patient's increased 5 year Kori score. Patient should continue monthly self-breast exams. A clinical breast exam by your physician is recommended on an annual basis. This exam should not preclude additional follow-up of suspicious palpable abnormalities. Note on Kori scores and lifetime risk: 1. A Kori score greater than 3% is considered moderate risk. If this is the case, consider specialist referral to assess eligibility for a risk reducing agent. 2. If overall lifetime risk for the development of breast cancer is 20% or higher, the patient may qualify for future screening with alternating mammogram and breast MRI. Electronically signed and approved by: Kavon Monte M.D. Radiologist
== END | disposition home or self-care (01) ==
LOC: RADMAMWWP 08:34
PROVIDERS: ATTEND Family Medicine
DX: Z12.31 Encounter for screening mammogram for malignant neoplasm of breast (principal); Z78.0 Asymptomatic menopausal state; Z80.3 Family history of malignant neoplasm of breast
CPT/HCPCS: 77063; 77067

== ENCOUNTER → 2022-09-30 | Outpatient (CLI) | payer BC, OTHER ==
--- NOTE | 2022-09-30 08:43 | US ---
EXAMINATION TYPE: US liver DATE OF EXAM: 09/30/2022 COMPARISON: NONE CLINICAL INDICATION: Female, 62 years old with history of R74.01 ELEVATION OF LEVELS OF LIVER TRANSAM INASE L; Abnormal labs. GB removed. Gastric sleeve x few years ago. TECHNIQUE: Multiple sonographic images of the right upper quadrant are obtained. 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 No suspicious hepatic observations.
== END | disposition home or self-care (01) ==
LOC: RADUSWWP 07:28
PROVIDERS: ATTEND Family Medicine
DX: R74.01 Elevation of levels of liver transaminase levels (principal)
CPT/HCPCS: 76705

== ENCOUNTER → 2023-08-19 | Outpatient (CLI) | payer BC, OTHER ==
--- NOTE | 2023-08-20 14:01 | MM ---
Reason for Exam: Screening (asymptomatic). Last screening mammogram was performed 12 month(s) ago. Patient History: Menarche at age 10. Patient has no children. Postmenopausal. 2016, Benign Excisional Biopsy on the left side. Maternal grandmother had breast cancer, age 53. Maternal cousin had breast cancer, age 65. Mother had breast cancer, age 81. Risk Values: Kori 5 year model risk: 4.1%. NCI Lifetime model risk: 15.7%. Prior Study Comparison: 07/25/2021 Left Diagnostic Mammogram, [facility]. 01/13/2022 Left MG 3D diag mammo w/cad LT, [facility]. 08/06/2022 Bilateral MG 3D screening mammo w/cad, [facility]. Tissue Density: There are scattered areas of fibroglandular density. Findings: Analyzed By CAD. The pattern is symmetrical. Chronic nodularity is the upper outer right breast. No significant interval change is evident. No suspicious groups of microcalcifications, spiculated or lobular masses, architectural distortion or other secondary signs of malignancy are mammographically apparent. Overall Assessment: Benign, BI-RAD 2 Management: Screening Mammogram of both breasts in 1 year. A negative mammogram report should not preclude additional follow up of suspicious palpable abnormalities. Patient should continue monthly self breast exam. A clinical breast exam by your physician is recommended on an annual basis and results should be correlated with mammographic findings. Note on Kori scores and lifetime risk: 1. A Kori score greater than 3% is considered moderate risk. If this is the case, consider specialist referral to assess eligibility for a risk reducing agent. 2. If overall lifetime risk for the development of breast cancer is 20% or higher, the patient may qualify for future screening with alternating mammogram and breast MRI. Electronically signed and approved by: Cornell Gloria D.O. Radiologis
== END | disposition home or self-care (01) ==
LOC: RADMAMWWP 11:21
PROVIDERS: ATTEND Family Medicine
DX: Z12.31 Encounter for screening mammogram for malignant neoplasm of breast (principal); Z80.3 Family history of malignant neoplasm of breast; Z78.0 Asymptomatic menopausal state
CPT/HCPCS: 77063; 77067